=== PATIENT | male | born 1940 | race Caucasian/White ===

== ENCOUNTER 2018-06-13 15:11 | Emergency (ER) | payer MEDICARE ==
[2018-06-13 15:24] VITALS: TEMP 98.1
[2018-06-13] MEDS ORDERED: Aluminum Hydroxide/Magnesium Hydroxide Susp (30 mL) PO STA (16:06)
[2018-06-13] MEDS ORDERED: Sodium Chloride 0.9% 1,000 ML IV ONE (16:06)
[2018-06-13] MEDS ORDERED: Lidocaine 5% Patch TD STA (16:06)
[2018-06-13 16:22] LABS: BASO % 0.4 % (0.0-2.0); EOS # 0.2 K/uL (0.0-0.7); EOS % 2.6 % (0.0-4.0); HEMOGLOBIN 14.6 g/dL (12.0-18.0); LYMPH # 2.6 K/uL (1.0-4.3); LYMPH % 39.7 % (20.0-40.0); MEAN CELL VOLUME 91.8 fL (80.0-94.0); MEAN CORPUSCULAR HEMOGLOBIN 31.6 pg (27.0-31.0); MEAN CORPUSCULAR HGB CONC 34.4 g/dL (33.0-37.0); MEAN PLATELET VOLUME 9.9 fL (7.2-11.7); MONO # 0.7 K/uL (0.0-0.8); MONO % 10.5 % (0.0-10.0); NEUT # 3.1 K/uL (1.8-7.0); NEUT % 46.8 % (50.0-75.0); NRBC % 0.1 % (0.0-2.0); RBC 4.64 Mil/uL (4.40-5.90); RED CELL DISTRIBUTION WIDTH 14.2 % (11.5-14.5); WHITE BLOOD COUNT 6.6 K/uL (4.8-10.8)
--- NOTE | 2018-06-13 16:28 | C.PDOC ---
History Of Present Illness 77 year old male patient presents to the ER with c/o sharp intermittent right intercostal pain. Patient reports pain radiates to his epigastric. Patient denies dysuria, frequency, hematuria, fever and chills. Time Seen by Provider: 06/13/18 15:31 Chief Complaint (Nursing): Abdominal Pain History Per: Patient History/Exam Limitations: no limitations Onset/Duration Of Symptoms: Days Current Symptoms Are (Timing): Still Present Location Of Pain/Discomfort: RUQ, Epigastric Past Medical History Reviewed: Historical Data, Nursing Documentation, Vital Signs Vital Signs: Last Vital Signs Temp 98.1 F 06/13/18 15:21 Pulse 65 06/13/18 15:21 Resp 17 06/13/18 15:21 BP 117/70 06/13/18 15:21 Pulse Ox 96 06/13/18 17:38 Family History: States: Unknown Family Hx - Social History Hx Alcohol Use: No Hx Substance Use: No - Immunization History Hx Tetanus Toxoid Vaccination: No Hx Influenza Vaccination: No Hx Pneumococcal Vaccination: No Review Of Systems Except As Marked, All Systems Reviewed And Found Negative. Constitutional: Negative for: Fever, Chills Gastrointestinal: Positive for: Abdominal Pain (intermittent sharp intercostal pain; radiates to epigastric ) Genitourinary: Negative for: Dysuria, Frequency, Hematuria Physical Exam - Physical Exam Appears: Non-toxic, No Acute Distress Skin: Normal Color, Warm, Dry Chest: Symmetrical, No Deformity Cardiovascular: Rhythm Regular Respiratory: Normal Breath Sounds Gastrointestinal/Abdominal: Soft, Tenderness (bony point tenderness right intercostal mid axillary 12th rib ), No Distention, No Guarding, No Rebound Back: CVA Tenderness (right) Extremity: Normal ROM (x4) Neurological/Psych: Oriented x3, Normal Speech ED Course And Treatment - Laboratory Results Result Diagrams: 06/13/18 16:19 06/13/18 16:19 O2 Sat by Pulse Oximetry: 96 (RA) Pulse Ox Interpretation: Normal Medical Decision Making Medical Decision Making: Impression: sharp intermittent inertcostal mid axillary pain Plans: -- blood work -- lidoderm -- maalox -- motrin -- pepcid -- IV fluids -- Tyelnol -- UA Reassess: Patient is resting comfortably. Tolerating medication. Patient is given prescription for pain and is instructed to f/u with clinic in 1-2 days. Disposition Counseled Patient/Family Regarding: Studies Performed, Diagnosis, Need For Followup, Rx Given - Disposition Disposition Time: 17:36 Condition: STABLE Prescriptions: Ibuprofen [Motrin] 600 mg PO TID #15 tab Lidocaine 5% [Lidoderm] 1 ea TD DAILY #2 patch Instructions: Costochondritis Forms: [employer] (Vietnamese) - POA Present On Arrival: None - Clinical Impression Clinical Impression: Costochondritis - Scribe Statement The provider has reviewed the documentation as recorded by the Rebeca Dupont Do Provider Attestation: All medical record entries made by the Jhonibdon were at my direction and personally dictated by me. I have reviewed the chart and agree that the record accurately reflects my personal performance of the history, physical exam, medical decision making, and the department course for this patient. I have also personally directed, reviewed, and agree with the discharge instructions and disposition.
[2018-06-13] MEDS ORDERED: Sodium Chloride 0.9% 1,000 ML ONE (16:32)
[2018-06-13] MEDS ORDERED: Aluminum Hydroxide/Magnesium Hydroxide Susp (30 mL) ONE (16:33)
[2018-06-13 16:35] LABS: ALBUMIN 3.4 g/dL (3.5-5.0); ALT/SGPT 27 U/L (21-72); AST/SGOT 28 U/L (17-59); BLOOD UREA NITROGEN 15 mg/dL (9-20); CALCIUM 8.9 mg/dl (8.6-10.4); GFR NON-AFRICAN AMERICAN > 60
[2018-06-13] MEDS ORDERED: Lidocaine 5% Patch TD ONE (16:55)
[2018-06-13 17:56] VITALS: BP 121/68; PULSE 84; RESP 16; O2SAT 98
== END 2018-06-13 17:55 | disposition home or self-care (01) ==
LOC: C.ER 15:11
DX: M94.0 Chondrocostal junction syndrome [Tietze] (principal)
CPT/HCPCS: 80053; 85025; 96361; 96374; 99284; J7030

== ENCOUNTER 2018-08-12 10:13 | Inpatient (IN) | payer MEDICARE ==
[2018-08-12 10:31] VITALS: BMI 24.9
[2018-08-12] MEDS ORDERED: Sodium Chloride 0.9% 1,000 ML IV ONE ×4 (10:51→17:05)
--- NOTE | 2018-08-12 11:11 | C.PDOC ---
History Of Present Illness 77 y/o male presents to the ED complaining of upper abdominal pain, mostly RUQ, that began yesterday. Associated with fever. No associated nausea, vomiting, or diarrhea. PMHx is significant for gastritis. Patient also reports having some dysuria. Denies any hematuria, incontinence, back pain, urinary frequency/urgency, or testicular/penile pain. Time Seen by Provider: 08/12/18 10:34 Chief Complaint (Nursing): Abdominal Pain History Per: Patient History/Exam Limitations: no limitations Onset/Duration Of Symptoms: Days (x2) Current Symptoms Are (Timing): Still Present Location Of Pain/Discomfort: RUQ Past Medical History Reviewed: Historical Data, Nursing Documentation, Vital Signs Vital Signs: Last Vital Signs Temp 102.3 F H 08/12/18 10:31 Pulse 113 H 08/12/18 10:31 Resp 20 08/12/18 10:31 BP 107/67 08/12/18 10:31 Pulse Ox 99 08/12/18 10:31 - Medical History PMH: Gastritis Family History: States: Unknown Family Hx - Social History Hx Alcohol Use: No Hx Substance Use: No - Immunization History Hx Tetanus Toxoid Vaccination: No Hx Influenza Vaccination: No Hx Pneumococcal Vaccination: No Review Of Systems Except As Marked, All Systems Reviewed And Found Negative. Constitutional: Positive for: Fever Gastrointestinal: Positive for: Abdominal Pain (RUQ). Negative for: Nausea, Vomiting, Diarrhea Genitourinary: Positive for: Dysuria. Negative for: Frequency, Incontinence, Hematuria, Scrotal Pain, Penile Pain Physical Exam - Physical Exam Appears: Non-toxic, No Acute Distress Skin: Normal Color, Warm, Dry Head: Atraumatic, Normacephalic Eye(s): bilateral: Normal Inspection, PERRL, EOMI Oral Mucosa: Moist Neck: Normal ROM Cardiovascular: Rhythm Regular, No Murmur Respiratory: Normal Breath Sounds, No Accessory Muscle Use Gastrointestinal/Abdominal: Soft, Tenderness (to the right upper quadrant), No Distention, No Guarding, No Rebound Back: No CVA Tenderness Extremity: Bilateral: Atraumatic, Normal Color And Temperature Neurological/Psych: Oriented x3, Normal Speech ED Course And Treatment - Laboratory Results Result Diagrams: 08/12/18 11:05 08/12/18 11:05 Lab Interpretation: Abnormal O2 Sat by Pulse Oximetry: 99 (RA) Pulse Ox Interpretation: Normal - Radiology CXR: Interpreted by Me, Viewed By Me CXR Interpretation: Yes: No Acute Disease - CT Scan/US Abdominal US Other Rad Studies (CT/US): Read By Radiologist, Radiology Report Reviewed CT/US Interpretation: Accession No. : [id number]. Patient Name / ID : ORION HUDDLESTON / [id number]. Exam Date : 08/12/2018 11:09:24 ( Approved ). Study Comment : Sex / Age : M / 77Y. Creator : Jayesh Platt MD. Dictator : Jayesh Platt MD. Staff Psychiatrist : Break Up Worker : Jayesh Platt MD. Approver2 : Report Date : 08/12/2018 11:55:29. My Comment : . Date of service: 08/12/2018. HISTORY: Pain. COMPARISON: None. TECHNIQUE: Sonographic evaluation of the abdomen. FINDINGS: LIVER: Measures 16.7 cm. Normal echogenicity of the liver parenchyma. Right hepatic lobe cyst measuring 5.2 x 3. 1 x 5.0 cm. 5 mm parenchymal calcification is seen. No intrahepatic bile duct dilatation. GALLBLADDER: Unremarkable. No gallstones. COMMON BILE DUCT: Measures 3 mm. No stones. No dilatation. PANCREAS: Unremarkable as visualized. No mass. No ductal dilatation. RIGHT KIDNEY: Measures 10.7 x 4.4 x 4.0cm. Exophytic mid/upper pole cyst measuring 5.7 x 5.5 x 6.3 cm. Cortical midpole cyst measuring 1.5 x 1.0 x 0.7 cm. Normal echogenicity. No calculus, mass, or hydronephrosis. LEFT KIDNEY: Measures 11.0 x 5.2 x 5.1cm. Upper pole cyst measuring 2.9 x 2.2 x 2.6 cm. Normal echogenicity. No calculus, mass, or hydronephrosis. SPLEEN: Normal in size and contour. No mass. AORTA: No ane urysmal dilatation. IVC: Unremarkable. OTHER FINDINGS: None. IMPRESSION: Right hepatic and bilateral renal cysts. Otherwise, unremarkable abdominal ultrasound. CT ABD/PELVIS Other Rad Studies (CT/US): Read By Radiologist, Radiology Report Reviewed CT/US Interpretation: Accession No. : [id number]. Patient Name / ID : ORION HUDDLESTON / [id number]. Exam Date : 08/12/2018 11:52:57 ( Approved ). Study Comment : Sex / Age : M / 77Y. Creator : María Bethea. Dictator : Jayesh Platt MD. Staff Psychiatrist : Break Up Worker : Jayesh Platt MD. Approver2 : Report Date : 08/12/2018 12:02:44. My Comment : . Date of service: 08/12/2018. PROCEDURE: CT Abdomen and Pelvis without intravenous contrast. HISTORY: Pain. COMPARISON: None. TECHNIQUE: Contiguous images were obtained from the domes of the diaphragms to the upper thighs without the administration of intravenous contrast. Oral contrast was not administered. Radiation dose: Total exam DLP = 689.16 mGy-cm. This CT exam was performed using one or more of the following dose reduction techniques: Automated exposure control, adjustment of the mA and/or kV according to patient size, and/or use of iterative reconstruction technique. FINDINGS: LOWER THORAX: Heart size normal. Small to moderate pericardial effusion with maximal depth measuring 1.8 cm posteriorly. Chronic interstitial changes. No focal consolidation or pleural effusion. LIVER: Coarse right hepatic calcification. Inferior right hepatic lobe cyst measuring 4.3 x 3.6 cm no gross lesion or ductal dilatation. GALLBLADDER AND BILE DUCTS: Unremarkable. PANCREAS: Unremarkable. No gross lesion or ductal dilatation. SPLEEN: Unremarkable. ADRENALS: Unremarkable. No mass. KIDNEYS AND URETERS: Large exophytic right mid/upper pole cyst measuring 5.6 x 5.8 cm. Exophytic left upper pole cyst measuring 2.7 x 2.8 cm. No hydronephrosis. No solid mass. VASCULATURE: Unremarkable. No aortic aneurysm. Aortic atherosclerotic calcification and mural plaque present. BOWEL: Small hiatal hernia. Scattered colonic diverticula. No obstruction. No gross mural thickening. APPENDIX: Unremarkable. Normal appendix. PERITONEUM: Tiny fat containing umbilical hernia. Small bilateral fat containing inguinal hernias. No free fluid. No free air. LYMPH NODES: Unremarkable. No enlarged lymph nodes. BLADDER: Underdistended bladder with bladder wall thickening. REPRODUCTIVE: Prostatomegaly. BONES: No acute fracture. Spinal degenerative changes, worst at L4-5. OTHER FINDINGS: None. IMPRESSION: Small pericardial effusion that is focally moderate in size posterior laterally to the left with a maximum depth of 1.8 cm. No urolithiasis or evidence of recently passed genitou rinary calculus. Bladder wall thickening may be related to underdistention versus infection. Correlate with urinalysis/culture. Additional findings as above. Progress Note: Treated with tylenol PO, IVF NSS and rocephin. On re-evaluation abdomen soft Reassessment Condition: Improved - Physician Consult Information Physician Contacted: Lorna Mcnamara Outcome Of Conversation: admit Medical Decision Making Medical Decision Making: Plan: Labs, CXR, EKG ordered. Pending abdominal US. Administered IV fluids and PO Tylenol. UA shows +leuks, WBC, and bacteria. Patient given IM rocephin. US shows no gall stones. Ordered CT scan. Blood work reviewed, WBC elevated at 16K with [address] findings reviewed. 12:38 Case discussed with medicine on-call, Dr. Mcnamara, who accepts patient for admission for pyelonephritis. Disposition Discussed With : Lorna Mcnamara Doctor Will See Patient In The: Hospital Counseled Patient/Family Regarding: Studies Performed, Diagnosis - Disposition Disposition: HOSPITALIZED Disposition Time: 12:40 Condition: IMPROVED - POA Present On Arrival: None - Clinical Impression Clinical Impression: Abdominal pain, Pyelonephritis - PA / BODY FORMER / Resident Statement MD/DO has reviewed & agrees with the documentation as recorded. - Scribe Statement The provider has reviewed the documentation as recorded by the Scribe (Rachel Mckeon) All medical record entries made by the Scribe were at my direction and personally dictated by me. I have reviewed the chart and agree that the record accurately reflects my personal performance of the history, physical exam, medical decision making, and the department course for this patient. I have also personally directed, reviewed, and agree with the discharge instructions and disposition. Decision To Admit - Pt Status Changed To: Hospital Disposition Of: Inpatient - Admit Certification Admit to Inpatient:: After my assessment, the patient will require hospitalization for at least two midnights. This is because of the severity of symptoms shown, intensity of services needed, and/or the medical risk in this patient being treated as an outpatient. - InPatient: Physician Admission Certification:: Pyleonephritis - . Bed Request Type: Regular Admitting Physician: Lorna Mcnamara Patient Diagnosis: Abdominal pain, Pyelonephritis
[2018-08-12 11:14] LABS: BASO % 0.2 % (0.0-2.0); HEMOGLOBIN 14.2 g/dL (12.0-18.0); LYMPH # 0.7 K/uL (1.0-4.3); LYMPH % 4.5 % (20.0-40.0); MEAN CELL VOLUME 91.6 fL (80.0-94.0); MEAN CORPUSCULAR HEMOGLOBIN 31.8 pg (27.0-31.0); MEAN CORPUSCULAR HGB CONC 34.7 g/dL (33.0-37.0); MEAN PLATELET VOLUME 10.1 fL (7.2-11.7); MONO # 0.9 K/uL (0.0-0.8); MONO % 5.5 % (0.0-10.0); NEUT % 89.8 % (50.0-75.0); NRBC % 0.1 % (0.0-2.0); PLATELET COUNT 136 K/uL (130-400); RBC 4.48 Mil/uL (4.40-5.90); RED CELL DISTRIBUTION WIDTH 13.8 % (11.5-14.5)
--- NOTE | 2018-08-12 11:14 | RAD ---
Date of service: 08/12/2018 HISTORY: SOB COMPARISON: Chest radiograph dated 08/16/2017. TECHNIQUE: Chest PA and lateral FINDINGS: LUNGS: No active pulmonary disease. PLEURA: No significant pleural effusion identified. No pneumothorax apparent. CARDIOVASCULAR: Aortic atherosclerotic calcifications. Cardiomediastinal silhouette stably enlarged. OSSEOUS STRUCTURES: Unchanged. VISUALIZED UPPER ABDOMEN: Normal. OTHER FINDINGS: None. IMPRESSION: No active disease.
[2018-08-12 11:15] LABS: SQUAMOUS EPITHIAL 2 /hpf (0-5); URINE BACTERIA OCC (<OCC); URINE BILIRUBIN NEGATIVE (NEGATIVE); URINE BLOOD 3+ (NEGATIVE); URINE CLARITY Hazy (Clear); URINE COLOR Amber (YELLOW); URINE GLUCOSE (UA) NORMAL (Normal); URINE LEUKOCYTE ESTERASE 3+ Leu/uL (Negative); URINE PROTEIN 1+ mg/dL (NEGATIVE); URINE UROBILINOGEN NORMAL mg/dL (0.2-1.0); WBC CLUMPS MOD /hpf; WHITE BLOOD COUNT 16.6 K/uL (4.8-10.8)
[2018-08-12 11:17] LABS: VENOUS BLOOD GAS BASE EXCESS -1.6 mmol/L (0.0-2.0); VENOUS BLOOD GAS PCO2 31 mmHg (40-60); VENOUS BLOOD GAS PO2 49 mm/Hg (30-55); VENOUS BLOOD PH 7.45 (7.32-7.43)
[2018-08-12 11:24] LABS: ALB/GLOB RATIO 1.1 (1.0-2.1); ALBUMIN 3.4 g/dL (3.5-5.0); ALT/SGPT 21 U/L (21-72); AST/SGOT 24 U/L (17-59); BLOOD UREA NITROGEN 17 mg/dL (9-20); CALCIUM 8.7 mg/dl (8.6-10.4); GFR NON-AFRICAN AMERICAN 54; LIPASE 17 U/L (23-300)
[2018-08-12] MEDS ORDERED: cefTRIAXone IV 1 gm in Dextros 50 ML IV ONE (11:27)
[2018-08-12] MEDS ORDERED: cefTRIAXone 1 gm 1 GM/100 ML BAG IVPB ONE (11:38)
--- NOTE | 2018-08-12 11:59 | US ---
Date of service: 08/12/2018 HISTORY: Pain COMPARISON: None. TECHNIQUE: Sonographic evaluation of the abdomen. FINDINGS: LIVER: Measures 16.7 cm. Normal echogenicity of the liver parenchyma. Right hepatic lobe cyst measuring 5.2 x 3.1 x 5.0 cm. 5 mm parenchymal calcification is seen. No intrahepatic bile duct dilatation. GALLBLADDER: Unremarkable. No gallstones. COMMON BILE DUCT: Measures 3 mm. No stones. No dilatation. PANCREAS: Unremarkable as visualized. No mass. No ductal dilatation. RIGHT KIDNEY: Measures 10.7 x 4.4 x 4.0cm. Exophytic mid/upper pole cyst measuring 5.7 x 5.5 x 6.3 cm. Cortical midpole cyst measuring 1.5 x 1.0 x 0.7 cm. Normal echogenicity. No calculus, mass, or hydronephrosis. LEFT KIDNEY: Measures 11.0 x 5.2 x 5.1cm. Upper pole cyst measuring 2.9 x 2.2 x 2.6 cm. Normal echogenicity. No calculus, mass, or hydronephrosis. SPLEEN: Normal in size and contour. No mass. AORTA: No aneurysmal dilatation. IVC: Unremarkable. OTHER FINDINGS: None. IMPRESSION: Right hepatic and bilateral renal cysts. Otherwise, unremarkable abdominal ultrasound.
--- NOTE | 2018-08-12 12:14 | CT ---
Date of service: 08/12/2018 PROCEDURE: CT Abdomen and Pelvis without intravenous contrast HISTORY: Pain COMPARISON: None. TECHNIQUE: Contiguous images were obtained from the domes of the diaphragms to the upper thighs without the administration of intravenous contrast. Oral contrast was not administered. Radiation dose: Total exam DLP = 689.16 mGy-cm. This CT exam was performed using one or more of the following dose reduction techniques: Automated exposure control, adjustment of the mA and/or kV according to patient size, and/or use of iterative reconstruction technique. FINDINGS: LOWER THORAX: Heart size normal. Small to moderate pericardial effusion with maximal depth measuring 1.8 cm posteriorly. Chronic interstitial changes. No focal consolidation or pleural effusion. LIVER: Coarse right hepatic calcification. Inferior right hepatic lobe cyst measuring 4.3 x 3.6 cm no gross lesion or ductal dilatation. GALLBLADDER AND BILE DUCTS: Unremarkable. PANCREAS: Unremarkable. No gross lesion or ductal dilatation. SPLEEN: Unremarkable. ADRENALS: Unremarkable. No mass. KIDNEYS AND URETERS: Large exophytic right mid/upper pole cyst measuring 5.6 x 5.8 cm. Exophytic left upper pole cyst measuring 2.7 x 2.8 cm. No hydronephrosis. No solid mass. VASCULATURE: Unremarkable. No aortic aneurysm. Aortic atherosclerotic calcification and mural plaque present. BOWEL: Small hiatal hernia. Scattered colonic diverticula. No obstruction. No gross mural thickening. APPENDIX: Unremarkable. Normal appendix. PERITONEUM: Tiny fat containing umbilical hernia. Small bilateral fat containing inguinal hernias. No free fluid. No free air. LYMPH NODES: Unremarkable. No enlarged lymph nodes. BLADDER: Underdistended bladder with bladder wall thickening. REPRODUCTIVE: Prostatomegaly. BONES: No acute fracture. Spinal degenerative changes, worst at L4-5. OTHER FINDINGS: None. IMPRESSION: Small pericardial effusion that is focally moderate in size posterior laterally to the left with a maximum depth of 1.8 cm. No urolithiasis or evidence of recently passed genitourinary calculus. Bladder wall thickening may be related to underdistention versus infection. Correlate with urinalysis/culture. Additional findings as above.
[2018-08-12 12:15] LABS: BANDS 12 % (0-2); LYMPHOCYTE 4 % (20-40); MONOCYTE 3 % (0-10); NEUTROPHIL 79 % (50-75); PLATELET ESTIMATE NORMAL (NORMAL); REACTIVE LYMPHOCYTES 2 % (0-0); TOTAL CELLS COUNTED 100
--- NOTE | 2018-08-12 13:12 | CP.PCM.HP ---
History of Present Illness - History of Present Illness History of Present Illness: fever chils and flank pain sinsce last night Present on Admission - Present on Admission Any Indicators Present on Admission: No Review of Systems - Review of Systems Systems not reviewed;Unavailable: Acuity of Condition - Constitutional Constitutional: Chills, Fatigue, Fever, Malaise - EENT Eyes: As Per HPI Ears: As Per HPI Nose/Mouth/Throat: As Per HPI - Cardiovascular Cardiovascular: As Per HPI - Respiratory Respiratory: As Per HPI - Gastrointestinal Gastrointestinal: As Per HPI - Genitourinary Genitourinary: Dysuria, Flank Pain, Pyuria - Reproductive: Male Reproductive:Male: As Per HPI - Musculoskeletal Musculoskeletal: As Per HPI - Integumentary Integumentary: As Per HPI - Neurological Neurological: As Per HPI - Psychiatric Psychiatric: As Per HPI - Endocrine Endocrine: As Per HPI - Hematologic/Lymphatic Hematologic: As Per HPI Past Patient History - Past Social History Smoking Status: Former Smoker - GASTROINTESTINAL Hx Gastritis: Yes - PSYCHIATRIC Hx Substance Use: No - SURGICAL HISTORY Hx Surgeries: No - ANESTHESIA Hx Anesthesia: No Meds Allergies/Adverse Reactions: Allergies Allergy/AdvReac Type Severity Reaction Status Date / Time No Known Allergies Allergy Verified 08/12/18 10:30 Physical Exam - Constitutional Appears: In Acute Distress - Head Exam Head Exam: ATRAUMATIC - Eye Exam Eye Exam: Normal appearance Pupil Exam: NORMAL ACCOMODATION - ENT Exam ENT Exam: Mucous Membranes Moist - Neck Exam Neck exam: Positive for: Full Rom - Respiratory Exam Respiratory Exam: NORMAL BREATHING PATTERN - Cardiovascular Exam Cardiovascular Exam: REGULAR RHYTHM - GI/Abdominal Exam GI & Abdominal Exam: Distended, Tenderness - Rectal Exam Rectal Exam: Deferred - Exam External exam: NORMAL EXTERNAL EXAM - Extremities Exam Extremities exam: Positive for: normal inspection - Back Exam Back exam: CVA tenderness (L) - Neurological Exam Neurological exam: Normal Gait, Oriented x3 - Psychiatric Exam Psychiatric exam: Normal Affect - Skin Skin Exam: Normal Color Results - Vital Signs Recent Vital Signs: Last Vital Signs Temp 99.4 F 08/12/18 12:19 Pulse 89 08/12/18 12:19 Resp 16 08/12/18 12:19 BP 90/49 L 08/12/18 12:19 Pulse Ox 99 08/12/18 13:02 - Labs Result Diagrams: 08/12/18 11:05 08/12/18 11:05 Labs: Laboratory Results - last 24 hr 08/12/18 08/12/18 08/12/18 11:05 11:05 11:05 WBC 16.6 H D RBC 4.48 Hgb 14.2 Hct 41.1 MCV 91.6 MCH 31.8 H MCHC 34.7 RDW 13.8 Plt Count 136 MPV 10.1 Neut % (Auto) 89.8 H Lymph % (Auto) 4.5 L [place] % (Auto) 5.5 Eos % (Auto) 0.0 Baso % (Auto) 0.2 Neut # (Auto) 15.0 H Lymph # (Auto) 0.7 L [place] # (Auto) 0.9 H Eos # (Auto) 0.0 Baso # (Auto) 0.0 Neutrophils % (Manual) 79 H Band Neutrophils % 12 H* Lymphocytes % (Manual) 4 L Reactive Lymphs % 2 H Monocytes % (Manual) 3 Platelet Estimate Normal RBC Morphology Normal pO2 VBG pH VBG pCO2 VBG HCO3 VBG Total CO2 VBG O2 Sat (Calc) VBG Base Excess VBG Potassium Glucose Lactate Sodium 133 Potassium 3.9 Chloride 103 Carbon Dioxide 21 L Anion Gap 13 BUN 17 Creatinine 1.3 Est GFR ( Amer) > 60 Est GFR (Non-Af Amer) 54 Random Glucose 121 H Calcium 8.7 Total Bilirubin 0.9 AST 24 ALT 21 D Alkaline Phosphatase 102 Total Protein 6.6 Albumin 3.4 L Globulin 3.2 Albumin/Globulin Ratio 1.1 Lipase 17 L Venous Blood Potassium Urine Color La Urine Clarity Hazy Urine pH 5.0 Ur Specific [place] 1.018 Urine Protein 1+ H Urine Glucose (UA) Normal Urine Ketones Negative Urine Blood 3+ H Urine Nitrate Negative Urine Bilirubin Negative Urine Urobilinogen Normal Ur Leukocyte Esterase 3+ H Urine WBC (Auto) 609 H Urine RBC (Auto) 193 H Urine WBC Clumps (Auto) Mod H Ur Squamous Epith Cells 2 Urine Bacteria Occ H 08/12/18 11:14 WBC RBC Hgb Hct MCV MCH MCHC RDW Plt Count MPV Neut % (Auto) Lymph % (Auto) [place] % (Auto) Eos % (Auto) Baso % (Auto) Neut # (Auto) Lymph # (Auto) [place] # (Auto) Eos # (Auto) Baso # (Auto) Neutrophils % (Manual) Band Neutrophils % Lymphocytes % (Manual) Reactive Lymphs % Monocytes % (Manual) Platelet Estimate RBC Morphology pO2 49 VBG pH 7.45 H VBG pCO2 31 L VBG HCO3 23.4 VBG Total CO2 22.5 VBG O2 Sat (Calc) 89.8 H VBG Base Excess -1.6 L VBG Potassium 3.7 Glucose 116 H Lactate 1.5 Sodium 133.0 Potassium Chloride 101.0 Carbon Dioxide Anion Gap BUN Creatinine Est GFR ( Amer) Est GFR (Non-Af Amer) Random Glucose Calcium Total Bilirubin AST ALT Alkaline Phosphatase Total Protein Albumin Globulin Albumin/Globulin Ratio Lipase Venous Blood Potassium 3.7 Urine Color Urine Clarity Urine pH Ur Specific [place] Urine Protein Urine Glucose (UA) Urine Ketones Urine Blood Urine Nitrate Urine Bilirubin Urine Urobilinogen Ur Leukocyte Esterase Urine WBC (Auto) Urine RBC (Auto) Urine WBC Clumps (Auto) Ur Squamous Epith Cells Urine Bacteria Assessment & Plan - Assessment and Plan (Free Text) Assessment: ac abd pain acute pyelo nephritis Plan: as per orders - Date & Time Date: 08/12/18 Time: 13:15
[2018-08-12] MEDS ORDERED: Meropenem 500 MG in Sodium Chloride 0.9% 100 ML IVPB SCH (15:00)
--- NOTE | 2018-08-12 15:28 | PCM.RRT ---
<Zohaib Cortez - Last Filed: 08/12/18 20:03> [employer]ED[employer] DUMPING SUPERVISOR Nurses Assessment - Situation Date: 08/12/18 Time SUCTION [employer]EDGE DUMPING SUPERVISOR was called: 14:53 - Constitutional Appears: No Acute Distress. absent: Well - Head Head Exam: ATRAUMATIC, NORMOCEPHALIC - Eyes Eye Exam: Normal appearance - Respiratory Exam Respiratory Exam: Clear to Ausculation Bilateral. absent: Accessory Muscle Use, Rales, Rhonchi, Wheezes, Respiratory Distress - Cardiovascular Exam Cardiovascular Exam: Tachycardia, +S1, +S2. absent: Gallop, Rubs, Murmur - GI/Abdominal Exam GI & Abdominal Exam: Soft. absent: Distended, Firm, Tenderness - Neurological Exam Neurological Exam: Alert, Awake - Extremities Exam Extremities Exam: Normal Inspection. absent: Calf Tenderness, Pedal Edema Plan - Assessment of Findings&Treatment Plan SUCTION DREDGE DUMPING SUPERVISOR was called at 14:53 for hypotension. Patient was just admitted with possible diagnosis of pyelonephritis. Patient chart reviewed, CT showed no evidence of pyelonephritis but showed possible pericardial effusion. On UA it was noted that patient has a UTI. Vitals upon arrival was: BP: 78/41 L, 84/44 R, T: 103, HR: 100, RR: 20, O2: 94% We started patient on Meropenem 500mg Q8, Tylenol 650mg Q6 for 24 hours, and lactobacillus. 1 L NS bolus x 2 started. Additional 1L NS ordered. Blood and urine cultures ordered in the ED. Repeat lactate levels for 18:00 and procalcitonin levels ordered. Stat ID and cardiology consulted. Stat EKG and echo ordered. Repeat vitals: BP: 111/58, HR: 100, RR:20, O2: [address] Mcnamara contacted and updated on the condition of the patient. She requested patient to be transferred to the ICU. <Salvador Vieira - Last Filed: 08/14/18 20:32> [employer]ING SUPERVISOR Nurses Assessment - Vital Signs Vital Signs: Rapid Response Vital Sign Blood Pressure 79/41 Pulse Rate 100 Respiratory Rate 21 Temperature 103.0 F Oxygen Saturation 93 - Vital Signs at end of SUCTION [employer]EDGE DUMPING SUPERVISOR Vital Signs at end of SUCTION [employer]EDGE DUMPING SUPERVISOR: Rapid Response End Vital Sign Blood Pressure 95/51 Pulse Rate 101 Respiratory Rate 21 Temperature 102.9 F O2 Sat by Pulse Oximetry 96 Attending/Attestation - Attestation I have personally seen and examined this patient.: Yes I have fully participated in the care of the patient.: Yes I have reviewed all pertinent clinical information, including history, physical exam and plan: Yes
--- NOTE | 2018-08-12 15:31 | PCM.SEPTIC ---
Sepsis Progress Note - Reassessment Type Date of Evaluation: 08/12/18 Time of Evaluation: 14:56 Reassessment Type: Non-invasive reassessment - Non Invasive Reassessment Were the most recent vital sign reviewed: Yes Vital Sign (Latest): Temp Pulse Resp BP Pulse Ox 99.4 F 105 H 18 95/59 L 97 08/12/18 12:19 08/12/18 14:05 08/12/18 14:05 08/12/18 14:05 08/12/18 14:05 Cardiovascular: Yes: Tachycardia. No: Regular Rate, Rhythm, Gallop, Murmur Respiratory: Yes: Normal Breath Sounds. No: Accessory Muscle Use, Rales, Rhonchi, Wheezing, Respiratory Distress Capillary Refill: Delayed Pulses: Normal Radial, Normal Dorsalis Pedis, Normal Posterior Tibialis Skin: Normal Color, Warm, Dry
[2018-08-12] MEDS ORDERED: Vancomycin 1 gm/NS 200 ml 1 GM/200 ML BAG IVPB SCH (16:00)
--- NOTE | 2018-08-12 16:14 | CP.PCM.CON ---
History of Present Illness - History of Present Illness History of Present Illness: dictated Past Patient History - Past Social History Smoking Status: Former Smoker - GASTROINTESTINAL Hx Gastritis: Yes - PSYCHIATRIC Hx Substance Use: No - SURGICAL HISTORY Hx Surgeries: No - ANESTHESIA Hx Anesthesia: No Meds Allergies/Adverse Reactions: Allergies Allergy/AdvReac Type Severity Reaction Status Date / Time No Known Allergies Allergy Verified 08/12/18 10:30 - Medications Medications: Current Medications Acetaminophen (Tylenol 325mg Tab) 650 mg PO Q6 RIRI Stop: 08/13/18 15:00 Meropenem 500 mg/ Sodium (Chloride) 100 mls @ 100 mls/hr IVPB Q8H RIRI; Protocol Sodium Chloride (Sodium Chloride 0.9%) 1,000 mls @ 1,000 mls/hr IV .Q1H ONE Stop: 08/12/18 16:44 Sodium Chloride (Sodium Chloride 0.9%) 1,000 mls @ 1,000 mls/hr IV .Q1H ONE Stop: 08/12/18 17:04 Vancomycin/Sodium Chloride (Vancomycin 1 Gm/Ns 200 Ml) 1 gm in 200 mls @ 133 mls/hr IVPB Q24H RIRI; Protocol Stop: 08/17/18 16:01 Lactobacillus Acidophilus (Bacid Acidophilus) 1 cap PO BID RIRI Pantoprazole Sodium (Protonix Ec Tab) 20 mg PO DAILY RIRI Results - Vital Signs Recent Vital Signs: Last Vital Signs Temp 99.4 F 08/12/18 12:19 Pulse 105 H 08/12/18 14:05 Resp 18 08/12/18 14:05 BP 95/59 L 08/12/18 14:05 Pulse Ox 97 08/12/18 14:05 - Labs Result Diagrams: 08/12/18 11:05 08/12/18 11:05 Labs: Laboratory Results - last 24 hr 08/12/18 08/12/18 08/12/18 11:05 11:05 11:05 WBC 16.6 H D RBC 4.48 Hgb 14.2 Hct 41.1 MCV 91.6 MCH 31.8 H MCHC 34.7 RDW 13.8 Plt Count 136 MPV 10.1 Neut % (Auto) 89.8 H Lymph % (Auto) 4.5 L [place] % (Auto) 5.5 Eos % (Auto) 0.0 Baso % (Auto) 0.2 Neut # (Auto) 15.0 H Lymph # (Auto) 0.7 L [place] # (Auto) 0.9 H Eos # (Auto) 0.0 Baso # (Auto) 0.0 Neutrophils % (Manual) 79 H Band Neutrophils % 12 H* Lymphocytes % (Manual) 4 L Reactive Lymphs % 2 H Monocytes % (Manual) 3 Platelet Estimate Normal RBC Morphology Normal pO2 VBG pH VBG pCO2 VBG HCO3 VBG Total CO2 VBG O2 Sat (Calc) VBG Base Excess VBG Potassium Glucose Lactate Sodium 133 Potassium 3.9 Chloride 103 Carbon Dioxide 21 L Anion Gap 13 BUN 17 Creatinine 1.3 Est GFR ( Amer) > 60 Est GFR (Non-Af Amer) 54 Random Glucose 121 H Lactic Acid Calcium 8.7 Total Bilirubin 0.9 AST 24 ALT 21 D Alkaline Phosphatase 102 Total Protein 6.6 Albumin 3.4 L Globulin 3.2 Albumin/Globulin Ratio 1.1 Lipase 17 L Venous Blood Potassium Urine Color La Urine Clarity Hazy Urine pH 5.0 Ur Specific [place] 1.018 Urine Protein 1+ H Urine Glucose (UA) Normal Urine Ketones Negative Urine Blood 3+ H Urine Nitrate Negative Urine Bilirubin Negative Urine Urobilinogen Normal Ur Leukocyte Esterase 3+ H Urine WBC (Auto) 609 H Urine RBC (Auto) 193 H Urine WBC Clumps (Auto) Mod H Ur Squamous Epith Cells 2 Urine Bacteria Occ H 08/12/18 08/12/18 11:14 15:15 WBC RBC Hgb Hct MCV MCH MCHC RDW Plt Count MPV Neut % (Auto) Lymph % (Auto) [place] % (Auto) Eos % (Auto) Baso % (Auto) Neut # (Auto) Lymph # (Auto) [place] # (Auto) Eos # (Auto) Baso # (Auto) Neutrophils % (Manual) Band Neutrophils % Lymphocytes % (Manual) Reactive Lymphs % Monocytes % (Manual) Platelet Estimate RBC Morphology pO2 49 VBG pH 7.45 H VBG pCO2 31 L VBG HCO3 23.4 VBG Total CO2 22.5 VBG O2 Sat (Calc) 89.8 H VBG Base Excess -1.6 L VBG Potassium 3.7 Glucose 116 H Lactate 1.5 Sodium 133.0 Potassium Chloride 101.0 Carbon Dioxide Anion Gap BUN Creatinine Est GFR ( Amer) Est GFR (Non-Af Amer) Random Glucose Lactic Acid 1.8 Calcium Total Bilirubin AST ALT Alkaline Phosphatase Total Protein Albumin Globulin Albumin/Globulin Ratio Lipase Venous Blood Potassium 3.7 Urine Color Urine Clarity Urine pH Ur Specific [place] Urine Protein Urine Glucose (UA) Urine Ketones Urine Blood Urine Nitrate Urine Bilirubin Urine Urobilinogen Ur Leukocyte Esterase Urine WBC (Auto) Urine RBC (Auto) Urine WBC Clumps (Auto) Ur Squamous Epith Cells Urine Bacteria
--- NOTE | 2018-08-12 16:51 | CP.PCM.CON ---
<Anh Quinteros - Last Filed: 08/12/18 18:10> History of Present Illness - History of Present Illness History of Present Illness: Patient is a 77 yo male who presented to the ED for RUQ, dysuria, and fever. 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 Patient was starte don broad spectrum abx, IV F, and Tylenol. PMH: gastritis, bronchitis PSH: none Meds: none All: none FH: unknown SH: former smoker x30 yrs- quit in 2017 Review of Systems - Review of Systems All systems: reviewed and no additional remarkable complaints except - Constitutional Constitutional: As Per HPI, Fever - Cardiovascular Cardiovascular: absent: Chest Pain - Respiratory Respiratory: absent: Dyspnea - Gastrointestinal Gastrointestinal: Abdominal Pain (mild). absent: Constipation, Diarrhea, Nausea, Vomiting - Genitourinary Genitourinary: As Per HPI, Dysuria. absent: Hematuria - Integumentary Integumentary: absent: Lesions Past Patient History - Infectious Disease Hx of Infectious Diseases: None - Tetanus Immunizations Tetanus Immunization: Unknown - Past Medical History & Family History Past Medical History?: Yes Past Family History: Reviewed and not pertinent - Past Social History Smoking Status: Former Smoker Chewing Tobacco Use: No Cigar Use: No Alcohol: None Drugs: Denies - CARDIAC Hx Cardiac Disorders: Yes Other/Comment: CT shows pericardial effusion - PULMONARY Hx Respiratory Disorders: Yes Hx Bronchitis: Yes - NEUROLOGICAL Hx Neurological Disorder: No - HEENT Hx HEENT Problems: No - RENAL Hx Chronic Kidney Disease: No - ENDOCRINE/METABOLIC Hx Endocrine Disorders: No - HEMATOLOGICAL/ONCOLOGICAL Hx Blood Disorders: No - INTEGUMENTARY Hx Dermatological Problems: No - MUSCULOSKELETAL/RHEUMATOLOGICAL Hx Musculoskeletal Disorders: No Hx Falls: No - GASTROINTESTINAL Hx Gastrointestinal Disorders: Yes Hx Gastritis: Yes - GENITOURINARY/GYNECOLOGICAL Hx Genitourinary Disorders: No - PSYCHIATRIC Hx Psychophysiologic Disorder: No Hx Substance Use: No - SURGICAL HISTORY Hx Surgeries: No - ANESTHESIA Hx Anesthesia: No Hx Anesthesia Reactions: No Hx Malignant Hyperthermia: No Has any member of the family had a problem w/ anesthesia?: No Meds Allergies/Adverse Reactions: Allergies Allergy/AdvReac Type Severity Reaction Status Date / Time No Known Allergies Allergy Verified 08/12/18 10:30 - Medications Medications: Current Medications Acetaminophen (Tylenol 325mg Tab) 650 mg PO Q6 PRN PRN Reason: Fever >100.4 F or Pain Sodium Chloride (Sodium Chloride 0.9%) 1,000 mls @ 1,000 mls/hr IV .Q1H ONE Stop: 08/12/18 17:04 Vancomycin/Sodium Chloride (Vancomycin 1 Gm/Ns 200 Ml) 1 gm in 200 mls @ 133 mls/hr IVPB Q24H RIRI; Protocol Stop: 08/17/18 16:01 Meropenem 1,000 mg/ Sodium (Chloride) 100 mls @ 100 mls/hr IVPB Q8H RIRI; Protocol Lactobacillus Acidophilus (Bacid Acidophilus) 1 cap PO BID RIRI Pantoprazole Sodium (Protonix Ec Tab) 20 mg PO DAILY RIRI Tamsulosin HCl (Flomax) 0.4 mg PO DAILY RIRI Stop: 08/16/18 10:01 Physical Exam - Constitutional Appears: Non-toxic, No Acute Distress - Head Exam Head Exam: ATRAUMATIC, NORMAL INSPECTION, NORMOCEPHALIC - Eye Exam Eye Exam: EOMI, Normal appearance, PERRL - ENT Exam ENT Exam: Mucous Membranes Moist - Neck Exam Neck exam: Positive for: Normal Inspection - Respiratory Exam Respiratory Exam: Clear to Auscultation Bilateral, NORMAL BREATHING PATTERN. absent: Respiratory Distress - Cardiovascular Exam Cardiovascular Exam: Tachycardia, REGULAR RHYTHM, +S1, +S2 - GI/Abdominal Exam GI & Abdominal Exam: Normal Bowel Sounds, Soft, Tenderness (mild). absent: Distended, Guarding, Rebound, Rigid - Rectal Exam Rectal Exam: Deferred - Back Exam Back exam: NORMAL INSPECTION. absent: CVA tenderness (L), CVA tenderness (R) - Neurological Exam Neurological exam: Alert, CN II-XII Intact, Oriented x3 - Psychiatric Exam Psychiatric exam: Normal Affect, Normal Mood - Skin Skin Exam: Dry, Intact, Normal Color, Warm Results - Vital Signs Recent Vital Signs: Last Vital Signs Temp 102.1 F H 08/12/18 16:21 Pulse 101 H 08/12/18 16:31 Resp 21 08/12/18 16:31 BP 95/59 L 08/12/18 14:05 Pulse Ox 96 08/12/18 16:31 - Labs Result Diagrams: 08/12/18 11:05 08/12/18 11:05 Labs: Laboratory Results - last 24 hr 08/12/18 08/12/18 08/12/18 11:05 11:05 11:05 WBC 16.6 H D RBC 4.48 Hgb 14.2 Hct 41.1 MCV 91.6 MCH 31.8 H MCHC 34.7 RDW 13.8 Plt Count 136 MPV 10.1 Neut % (Auto) 89.8 H Lymph % (Auto) 4.5 L [place] % (Auto) 5.5 Eos % (Auto) 0.0 Baso % (Auto) 0.2 Neut # (Auto) 15.0 H Lymph # (Auto) 0.7 L [place] # (Auto) 0.9 H Eos # (Auto) 0.0 Baso # (Auto) 0.0 Neutrophils % (Manual) 79 H Band Neutrophils % 12 H* Lymphocytes % (Manual) 4 L Reactive Lymphs % 2 H Monocytes % (Manual) 3 Platelet Estimate Normal RBC Morphology Normal pO2 VBG pH VBG pCO2 VBG HCO3 VBG Total CO2 VBG O2 Sat (Calc) VBG Base Excess VBG Potassium Glucose Lactate Sodium 133 Potassium 3.9 Chloride 103 Carbon Dioxide 21 L Anion Gap 13 BUN 17 Creatinine 1.3 Est GFR ( Amer) > 60 Est GFR (Non-Af Amer) 54 Random Glucose 121 H Lactic Acid Calcium 8.7 Total Bilirubin 0.9 AST 24 ALT 21 D Alkaline Phosphatase 102 Total Protein 6.6 Albumin 3.4 L Globulin 3.2 Albumin/Globulin Ratio 1.1 Lipase 17 L Venous Blood Potassium Urine Color La Urine Clarity Hazy Urine pH 5.0 Ur Specific [place] 1.018 Urine Protein 1+ H Urine Glucose (UA) Normal Urine Ketones Negative Urine Blood 3+ H Urine Nitrate Negative Urine Bilirubin Negative Urine Urobilinogen Normal Ur Leukocyte Esterase 3+ H Urine WBC (Auto) 609 H Urine RBC (Auto) 193 H Urine WBC Clumps (Auto) Mod H Ur Squamous Epith Cells 2 Urine Bacteria Occ H 08/12/18 08/12/18 11:14 15:15 WBC RBC Hgb Hct MCV MCH MCHC RDW Plt Count MPV Neut % (Auto) Lymph % (Auto) [place] % (Auto) Eos % (Auto) Baso % (Auto) Neut # (Auto) Lymph # (Auto) [place] # (Auto) Eos # (Auto) Baso # (Auto) Neutrophils % (Manual) Band Neutrophils % Lymphocytes % (Manual) Reactive Lymphs % Monocytes % (Manual) Platelet Estimate RBC Morphology pO2 49 VBG pH 7.45 H VBG pCO2 31 L VBG HCO3 23.4 VBG Total CO2 22.5 VBG O2 Sat (Calc) 89.8 H VBG Base Excess -1.6 L VBG Potassium 3.7 Glucose 116 H Lactate 1.5 Sodium 133.0 Potassium Chloride 101.0 Carbon Dioxide Anion Gap BUN Creatinine Est GFR ( Amer) Est GFR (Non-Af Amer) Random Glucose Lactic Acid 1.8 Calcium Total Bilirubin AST ALT Alkaline Phosphatase Total Protein Albumin Globulin Albumin/Globulin Ratio Lipase Venous Blood Potassium 3.7 Urine Color Urine Clarity Urine pH Ur Specific [place] Urine Protein Urine Glucose (UA) Urine Ketones Urine Blood Urine Nitrate Urine Bilirubin Urine Urobilinogen Ur Leukocyte Esterase Urine WBC (Auto) Urine RBC (Auto) Urine WBC Clumps (Auto) Ur Squamous Epith Cells Urine Bacteria Assessment & Plan - Assessment and Plan (Free Text) Assessment: Patient is a 77 yo male without significant PMH who presented with fever and abdominal pain. Patient was admitted for pyelonephritis. CYLINDER SANDER OPERATOR was called for hypotension. Plan: Neuro: - No acute issues - Monitor mental status CV: Pericardial effusion - CT A/P: small pericardial effusion - Echo pending - Cardiology consulted (Eulalio) Pulm: - Maintain spO2>92%- NC PRN GI: - NPO Renal: Pyelonephritis- suspect urolithiasis - CT A/P: no urolithiasis or evidence of recently passed calculus, bladder wall thickening - Flomax 0.4 mg PO daily x5 days - Strain urine for calculi Endo: - Maintain euglycemia Heme: - Monitor H&H ID: Septic shock - CYLINDER SANDER OPERATOR for hypotension - Tmax 103 - Tylenol 650 mg PO Q6H PRN - LA wnl (1.8) - Procal pending - Leukocytosis (16.6) - UA: LE 3+, nitrate neg, blood 3+, 609 WBC, occ cady - Blood, urine Cx pending - NS 2.5 L boluses - NS @ 100 mL/hr - Meropenem 1 g IV Q6H - Vancomycin 1 g IV Q24H - F/u trough - Florastor 250 mg PO BID - ID consulted (El) Ppx: VTE: SCDs, heparin 5000 units SC Q8H GI: PTX 20 mg PO daily Code status: full code Case was discussed with attending, Dr. Radha Vieira. PGY-1 Anh Quinteros D.O. <[place] M - Last Filed: 08/13/18 12:56> Meds - Medications Medications: Current Medications Acetaminophen (Tylenol 325mg Tab) 650 mg PO Q6 PRN PRN Reason: Fever >100.4 F or Pain Last Admin: 08/13/18 06:15 Dose: 650 mg Acetylcysteine (Acetylcysteine 20%) 3 ml PO Q12H [facility] Stop: 08/14/18 22:16 Last Admin: 08/13/18 11:06 Dose: 3 ml Albumin Human (Albumin Human 25% (12.5 Gm/50 Ml)) 25 gm IV Q8 RIRI Stop: 08/14/18 22:53 Heparin Sodium (Porcine) (Heparin) 5,000 units SC Q8 [facility] Last Admin: 08/13/18 06:15 Dose: 5,000 units Sodium Bicarbonate 150 meq/ (Dextrose) 1,150 mls @ 75 mls/hr IV .[id number] [facility] Stop: 08/13/18 23:49 Last Admin: 08/13/18 12:18 Dose: 75 mls/hr Meropenem 1 gm/ Sodium (Chloride) 100 mls @ 100 mls/hr IVPB Q12 RIRI; Protocol Sodium Chloride (Sodium Chloride 0.9%) 1,000 mls @ 75 mls/hr IV .[id number] [facility] Last Admin: 08/13/18 10:15 Dose: 75 mls/hr Lactobacillus Acidophilus (Bacid Acidophilus) 1 cap PO BID [facility] Last Admin: 08/13/18 11:06 Dose: 1 cap Midodrine (Proamatine) 5 mg PO TID RIRI Stop: 08/14/18 22:56 Last Admin: 08/13/18 11:05 Dose: 5 mg Pantoprazole Sodium (Protonix Ec Tab) 20 mg PO DAILY [facility] Last Admin: 08/13/18 11:05 Dose: 20 mg Tamsulosin HCl (Flomax) 0.4 mg PO DAILY [facility] Stop: 08/16/18 10:01 Last Admin: 08/13/18 11:06 Dose: 0.4 mg Results - Vital Signs Recent Vital Signs: Last Vital Signs Temp 98.7 F 08/13/18 12:00 Pulse 70 08/13/18 12:30 Resp 17 08/13/18 12:30 BP 85/43 L 08/13/18 12:04 Pulse Ox 89 L 08/13/18 12:30 - Labs Result Diagrams: 08/13/18 06:59 08/13/18 05:48 Labs: Laboratory Results - last 24 hr 08/12/18 08/12/18 08/12/18 15:15 15:15 18:18 WBC RBC Hgb Hct MCV MCH MCHC RDW Plt Count MPV Neut % (Auto) Lymph % (Auto) [place] % (Auto) Eos % (Auto) Baso % (Auto) Neut # (Auto) Lymph # (Auto) [place] # (Auto) Eos # (Auto) Baso # (Auto) Neutrophils % (Manual) Band Neutrophils % Lymphocytes % (Manual) Monocytes % (Manual) Platelet Estimate Large Platelets RBC Morphology Polychromasia Anisocytosis (manual) Sodium Potassium Chloride Carbon Dioxide Anion Gap BUN Creatinine Est GFR ( Amer) Est GFR (Non-Af Amer) Random Glucose Lactic Acid 1.8 1.1 Calcium Phosphorus Magnesium Total Bilirubin AST ALT Alkaline Phosphatase Total Protein Albumin Globulin Albumin/Globulin Ratio Procalcitonin 31.91 H Urine Color Urine Clarity Urine pH Ur Specific [place] Urine Protein Urine Glucose (UA) Urine Ketones Urine Blood Urine Nitrate Urine Bilirubin Urine Urobilinogen Ur Leukocyte Esterase Urine WBC (Auto) Urine RBC (Auto) Ur Squamous Epith Cells Urine Bacteria Hyaline Casts Random Vancomycin 08/12/18 08/12/18 08/13/18 20:30 20:30 05:48 WBC 10.3 RBC 4.12 L Hgb 13.1 Hct 38.4 MCV 93.0 MCH 31.7 H MCHC 34.1 RDW 14.0 Plt Count 106 L D MPV 9.5 Neut % (Auto) 91.0 H Lymph % (Auto) 4.9 L [place] % (Auto) 3.7 Eos % (Auto) 0.0 Baso % (Auto) 0.4 Neut # (Auto) 9.4 H Lymph # (Auto) 0.5 L [place] # (Auto) 0.4 Eos # (Auto) 0.0 Baso # (Auto) 0.0 Neutrophils % (Manual) 90 H Band Neutrophils % 7 H Lymphocytes % (Manual) 2 L Monocytes % (Manual) 1 Platelet Estimate Slightly decreased L Large Platelets RBC Morphology Normal Polychromasia Anisocytosis (manual) Sodium 137 145 Potassium 4.0 3.8 Chloride 111 H 106 Carbon Dioxide 16 L 18 L Anion Gap 14 24 H BUN 16 35 H Creatinine 1.2 3.2 H Est GFR ( Amer) > 60 23 Est GFR (Non-Af Amer) 59 19 Random Glucose 103 109 Lactic Acid Calcium 7.0 L 6.9 L Phosphorus 2.0 L 5.8 H Magnesium 1.5 L 1.8 Total Bilirubin 0.8 1.5 H AST 33 595 H D ALT 23 74 H D Alkaline Phosphatase 53 109 Total Protein 5.4 L 6.1 L Albumin 2.5 L D 4.0 Globulin 2.9 2.2 Albumin/Globulin Ratio 0.9 L 1.8 Procalcitonin Urine Color Urine Clarity Urine pH Ur Specific [place] Urine Protein Urine Glucose (UA) Urine Ketones Urine Blood Urine Nitrate Urine Bilirubin Urine Urobilinogen Ur Leukocyte Esterase Urine WBC (Auto) Urine RBC (Auto) Ur Squamous Epith Cells Urine Bacteria Hyaline Casts Random Vancomycin 08/13/18 08/13/18 08/13/18 05:48 06:44 06:59 WBC 9.9 RBC 3.75 L Hgb 11.9 L Hct 34.9 L MCV 93.1 MCH 31.7 H MCHC 34.1 RDW 14.1 Plt Count 93 L MPV 9.9 Neut % (Auto) 86.1 H Lymph % (Auto) 8.0 L [place] % (Auto) 5.7 Eos % (Auto) 0.0 Baso % (Auto) 0.2 Neut # (Auto) 8.5 H Lymph # (Auto) 0.8 L [place] # (Auto) 0.6 Eos # (Auto) 0.0 Baso # (Auto) 0.0 Neutrophils % (Manual) 83 H Band Neutrophils % 7 H Lymphocytes % (Manual) 7 L Monocytes % (Manual) 3 Platelet Estimate Decreased L Large Platelets Present RBC Morphology Polychromasia Slight Anisocytosis (manual) Slight Sodium Potassium Chloride Carbon Dioxide Anion Gap BUN Creatinine Est GFR ( Amer) Est GFR (Non-Af Amer) Random Glucose Lactic Acid 1.7 Calcium Phosphorus Magnesium Total Bilirubin AST ALT Alkaline Phosphatase Total Protein Albumin Globulin Albumin/Globulin Ratio Procalcitonin Urine Color Urine Clarity Urine pH Ur Specific [place] Urine Protein Urine Glucose (UA) Urine Ketones Urine Blood Urine Nitrate Urine Bilirubin Urine Urobilinogen Ur Leukocyte Esterase Urine WBC (Auto) Urine RBC (Auto) Ur Squamous Epith Cells Urine Bacteria Hyaline Casts Random Vancomycin 5.0 08/13/18 12:23 WBC RBC Hgb Hct MCV MCH MCHC RDW Plt Count MPV Neut % (Auto) Lymph % (Auto) [place] % (Auto) Eos % (Auto) Baso % (Auto) Neut # (Auto) Lymph # (Auto) [place] # (Auto) Eos # (Auto) Baso # (Auto) Neutrophils % (Manual) Band Neutrophils % Lymphocytes % (Manual) Monocytes % (Manual) Platelet Estimate Large Platelets RBC Morphology Polychromasia Anisocytosis (manual) Sodium Potassium Chloride Carbon Dioxide Anion Gap BUN Creatinine Est GFR ( Amer) Est GFR (Non-Af Amer) Random Glucose Lactic Acid Calcium Phosphorus Magnesium Total Bilirubin AST ALT Alkaline Phosphatase Total Protein Albumin Globulin Albumin/Globulin Ratio Procalcitonin Urine Color Yellow Urine Clarity Hazy Urine pH 5.0 Ur Specific [place] 1.016 Urine Protein Negative Urine Glucose (UA) Normal Urine Ketones Trace Urine Blood 3+ H Urine Nitrate Negative Urine Bilirubin Negative Urine Urobilinogen Normal Ur Leukocyte Esterase 1+ H Urine WBC (Auto) 27 H Urine RBC (Auto) 20 H Ur Squamous Epith Cells < 1 Urine Bacteria Rare Hyaline Casts 6-10 H Random Vancomycin Assessment & Plan - Assessment and Plan (Free Text) Plan: Above patient seen and examined at bedside. Patient s/p rapid -contineu IVF -contineu abx -strain Urine for kidney stones -serial lactic - Date & Time Date: 08/12/18 Time: 19:00
[2018-08-12] MEDS: Pantoprazole 20 mg EC Tab PO SCH (17:45)
[2018-08-12] MEDS: Lactobacillus Acidophilus 500 MU Cap PO SCH (17:45)
[2018-08-12] MEDS ORDERED: Sodium Chloride 0.9% 500 ML IV ONE (18:01)
[2018-08-12] MEDS ORDERED: Sodium Chloride 0.9% 1,000 ML IV SCH ×2 (18:45→19:36)
--- NOTE | 2018-08-12 20:01 | CP.PCM.CON ---
History of Present Illness - History of Present Illness History of Present Illness: Patient is a 77 yo male who admitted for sepsis consulted for percardial effusion PMH: gastritis, bronchitis PSH: none Meds: none All: none FH: unknown SH: former smoker x30 yrs- quit in 2017 Review of Systems - Review of Systems All systems: reviewed and no additional remarkable complaints except - Constitutional Constitutional: As Per HPI, Fever - Cardiovascular Cardiovascular: absent: Chest Pain - Respiratory Respiratory: absent: Dyspnea - Gastrointestinal Gastrointestinal: Abdominal Pain (mild). absent: Constipation, Diarrhea, Nausea, Vomiting - Genitourinary Genitourinary: As Per HPI, Dysuria. absent: Hematuria - Integumentary Integumentary: absent: Lesions Past Patient History - Infectious Disease Hx of Infectious Diseases: None - Tetanus Immunizations Tetanus Immunization: Unknown - Past Medical History & Family History Past Medical History?: Yes Past Family History: Reviewed and not pertinent - Past Social History Smoking Status: Former Smoker Chewing Tobacco Use: No Cigar Use: No Alcohol: None Drugs: Denies - CARDIAC Hx Cardiac Disorders: Yes Other/Comment: CT shows pericardial effusion - PULMONARY Hx Respiratory Disorders: Yes Hx Bronchitis: Yes - NEUROLOGICAL Hx Neurological Disorder: No - HEENT Hx HEENT Problems: No - RENAL Hx Chronic Kidney Disease: No - ENDOCRINE/METABOLIC Hx Endocrine Disorders: No - HEMATOLOGICAL/ONCOLOGICAL Hx Blood Disorders: No - INTEGUMENTARY Hx Dermatological Problems: No - MUSCULOSKELETAL/RHEUMATOLOGICAL Hx Musculoskeletal Disorders: No Hx Falls: No - GASTROINTESTINAL Hx Gastrointestinal Disorders: Yes Hx Gastritis: Yes - GENITOURINARY/GYNECOLOGICAL Hx Genitourinary Disorders: No - PSYCHIATRIC Hx Psychophysiologic Disorder: No Hx Substance Use: No - SURGICAL HISTORY Hx Surgeries: No - ANESTHESIA Hx Anesthesia: No Hx Anesthesia Reactions: No Hx Malignant Hyperthermia: No Has any member of the family had a problem w/ anesthesia?: No Meds Allergies/Adverse Reactions: Allergies Allergy/AdvReac Type Severity Reaction Status Date / Time No Known Allergies Allergy Verified 08/12/18 10:30 - Medications Medications: Current Medications Acetaminophen (Tylenol 325mg Tab) 650 mg PO Q6 PRN PRN Reason: Fever >100.4 F or Pain Sodium Chloride (Sodium Chloride 0.9%) 1,000 mls @ 1,000 mls/hr IV .Q1H ONE Stop: 08/12/18 17:04 Vancomycin/Sodium Chloride (Vancomycin 1 Gm/Ns 200 Ml) 1 gm in 200 mls @ 133 mls/hr IVPB Q24H [facility]; Protocol Stop: 08/17/18 16:01 Meropenem 1,000 mg/ Sodium (Chloride) 100 mls @ 100 mls/hr IVPB Q8H [facility]; Protocol Lactobacillus Acidophilus (Bacid Acidophilus) 1 cap PO BID [facility] Pantoprazole Sodium (Protonix Ec Tab) 20 mg PO DAILY [facility] Tamsulosin HCl (Flomax) 0.4 mg PO DAILY [facility] Stop: 08/16/18 10:01 Physical Exam - Constitutional Appears: Non-toxic, No Acute Distress - Head Exam Head Exam: ATRAUMATIC, NORMAL INSPECTION, NORMOCEPHALIC - Eye Exam Eye Exam: EOMI, Normal appearance, PERRL - ENT Exam ENT Exam: Mucous Membranes Moist - Neck Exam Neck exam: Positive for: Normal Inspection - Respiratory Exam Respiratory Exam: Clear to Auscultation Bilateral, NORMAL BREATHING PATTERN. absent: Respiratory Distress - Cardiovascular Exam Cardiovascular Exam: Tachycardia, REGULAR RHYTHM, +S1, +S2 - GI/Abdominal Exam GI & Abdominal Exam: Normal Bowel Sounds, Soft, Tenderness (mild). absent: Distended, Guarding, Rebound, Rigid - Rectal Exam Rectal Exam: Deferred - Back Exam Back exam: NORMAL INSPECTION. absent: CVA tenderness (L), CVA tenderness (R) - Neurological Exam Neurological exam: Alert, CN II-XII Intact, Oriented x3 - Psychiatric Exam Psychiatric exam: Normal Affect, Normal Mood - Skin Skin Exam: Dry, Intact, Normal Color, Warm Results - Vital Signs Recent Vital Signs: Last Vital Signs Temp 102.1 F H 08/12/18 16:21 Pulse 101 H 08/12/18 16:31 Resp 21 08/12/18 16:31 BP 95/59 L 08/12/18 14:05 Pulse Ox 96 08/12/18 16:31 - Labs Result Diagrams: 08/12/18 11:05 08/12/18 11:05 Labs: Laboratory Results - last 24 hr 08/12/18 08/12/18 08/12/18 11:05 11:05 11:05 WBC 16.6 H D RBC 4.48 Hgb 14.2 Hct 41.1 MCV 91.6 MCH 31.8 H MCHC 34.7 RDW 13.8 Plt Count 136 MPV 10.1 Neut % (Auto) 89.8 H Lymph % (Auto) 4.5 L [place] % (Auto) 5.5 Eos % (Auto) 0.0 Baso % (Auto) 0.2 Neut # (Auto) 15.0 H Lymph # (Auto) 0.7 L [place] # (Auto) 0.9 H Eos # (Auto) 0.0 Baso # (Auto) 0.0 Neutrophils % (Manual) 79 H Band Neutrophils % 12 H* Lymphocytes % (Manual) 4 L Reactive Lymphs % 2 H Monocytes % (Manual) 3 Platelet Estimate Normal RBC Morphology Normal pO2 VBG pH VBG pCO2 VBG HCO3 VBG Total CO2 VBG O2 Sat (Calc) VBG Base Excess VBG Potassium Glucose Lactate Sodium 133 Potassium 3.9 Chloride 103 Carbon Dioxide 21 L Anion Gap 13 BUN 17 Creatinine 1.3 Est GFR ( Amer) > 60 Est GFR (Non-Af Amer) 54 Random Glucose 121 H Lactic Acid Calcium 8.7 Total Bilirubin 0.9 AST 24 ALT 21 D Alkaline Phosphatase 102 Total Protein 6.6 Albumin 3.4 L Globulin 3.2 Albumin/Globulin Ratio 1.1 Lipase 17 L Venous Blood Potassium Urine Color La Urine Clarity Hazy Urine pH 5.0 Ur Specific Shunk 1.018 Urine Protein 1+ H Urine Glucose (UA) Normal Urine Ketones Negative Urine Blood 3+ H Urine Nitrate Negative Urine Bilirubin Negative Urine Urobilinogen Normal Ur Leukocyte Esterase 3+ H Urine WBC (Auto) 609 H Urine RBC (Auto) 193 H Urine WBC Clumps (Auto) Mod H Ur Squamous Epith Cells 2 Urine Bacteria Occ H 08/12/18 08/12/18 11:14 15:15 WBC RBC Hgb Hct MCV MCH MCHC RDW Plt Count MPV Neut % (Auto) Lymph % (Auto) [place] % (Auto) Eos % (Auto) Baso % (Auto) Neut # (Auto) Lymph # (Auto) [place] # (Auto) Eos # (Auto) Baso # (Auto) Neutrophils % (Manual) Band Neutrophils % Lymphocytes % (Manual) Reactive Lymphs % Monocytes % (Manual) Platelet Estimate RBC Morphology pO2 49 VBG pH 7.45 H VBG pCO2 31 L VBG HCO3 23.4 VBG Total CO2 22.5 VBG O2 Sat (Calc) 89.8 H VBG Base Excess -1.6 L VBG Potassium 3.7 Glucose 116 H Lactate 1.5 Sodium 133.0 Potassium Chloride 101.0 Carbon Dioxide Anion Gap BUN Creatinine Est GFR ( Amer) Est GFR (Non-Af Amer) Random Glucose Lactic Acid 1.8 Calcium Total Bilirubin AST ALT Alkaline Phosphatase Total Protein Albumin Globulin Albumin/Globulin Ratio Lipase Venous Blood Potassium 3.7 Urine Color Urine Clarity Urine pH Ur Specific [place] Urine Protein Urine Glucose (UA) Urine Ketones Urine Blood Urine Nitrate Urine Bilirubin Urine Urobilinogen Ur Leukocyte Esterase Urine WBC (Auto) Urine RBC (Auto) Urine WBC Clumps (Auto) Ur Squamous Epith Cells Urine Bacteria Assessment & Plan - Assessment and Plan (Free Text) Assessment: Patient is a 77 yo male without significant PMH who presented with fever and abdominal pain. Patient was admitted for pyelonephritis. 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 Plan: Neuro: - No acute issues - Monitor mental status CV: Pericardial effusion - CT A/P: small pericardial effusion - Echo pending - Cardiology consulted (Eulalio) Pulm: - Maintain spO2>92%- NC PRN GI: - NPO Renal: Pyelonephritis- suspect urolithiasis - CT A/P: no urolithiasis or evidence of recently passed calculus, bladder wall thickening - Flomax 0.4 mg PO daily x5 days - Strain urine for calculi Endo: - Maintain euglycemia Heme: - Monitor H&H ID: Septic shock - TECHNICAL TRAINING INSTRUCTOR for hypotension - Tmax 103 - Tylenol 650 mg PO Q6H PRN - LA wnl (1.8) - Procal pending - Leukocytosis (16.6) - UA: LE 3+, nitrate neg, blood 3+, 609 WBC, occ cady - Blood, urine Cx pending - NS 2.5 L boluses - NS @ 100 mL/hr - Meropenem 1 g IV Q6H - Vancomycin 1 g IV Q24H - F/u trough - Florastor 250 mg PO BID - ID consulted (El) Ppx: VTE: SCDs, heparin 5000 units SC Q8H GI: PTX 20 mg PO daily Code status: full code ECHO: Small pleural effusion Normal EF Past Patient History - Infectious Disease Hx of Infectious Diseases: None - Tetanus Immunizations Tetanus Immunization: Unknown - Past Medical History & Family History Past Medical History?: Yes Past Family History: Reviewed and not pertinent - Past Social History Smoking Status: Former Smoker Chewing Tobacco Use: No Cigar Use: No Alcohol: None Drugs: Denies - CARDIAC Hx Cardiac Disorders: Yes Other/Comment: CT shows pericardial effusion - PULMONARY Hx Respiratory Disorders: Yes Hx Bronchitis: Yes - NEUROLOGICAL Hx Neurological Disorder: No - HEENT Hx HEENT Problems: No - RENAL Hx Chronic Kidney Disease: No - ENDOCRINE/METABOLIC Hx Endocrine Disorders: No - HEMATOLOGICAL/ONCOLOGICAL Hx Blood Disorders: No - INTEGUMENTARY Hx Dermatological Problems: No - MUSCULOSKELETAL/RHEUMATOLOGICAL Hx Musculoskeletal Disorders: No Hx Falls: No - GASTROINTESTINAL Hx Gastrointestinal Disorders: Yes Hx Gastritis: Yes - GENITOURINARY/GYNECOLOGICAL Hx Genitourinary Disorders: No - PSYCHIATRIC Hx Psychophysiologic Disorder: No Hx Substance Use: No - SURGICAL HISTORY Hx Surgeries: No - ANESTHESIA Hx Anesthesia: No Hx Anesthesia Reactions: No Hx Malignant Hyperthermia: No Has any member of the family had a problem w/ anesthesia?: No Meds Allergies/Adverse Reactions: Allergies Allergy/AdvReac Type Severity Reaction Status Date / Time No Known Allergies Allergy Verified 08/12/18 10:30 - Medications Medications: Current Medications Acetaminophen (Tylenol 325mg Tab) 650 mg PO Q6 PRN PRN Reason: Fever >100.4 F or Pain Acetaminophen (Tylenol 650 Mg Supp) 650 mg LA ONCE ONE Stop: 08/12/18 20:01 Last Admin: 08/12/18 19:55 Dose: 650 mg Acetaminophen (Tylenol 650 Mg Supp) 650 mg LA ONCE ONE Stop: 08/12/18 20:01 Last Admin: 08/12/18 19:55 Dose: Not Given Heparin Sodium (Porcine) (Heparin) 5,000 units SC Q8 [facility] Vancomycin/Sodium Chloride (Vancomycin 1 Gm/Ns 200 Ml) 1 gm in 200 mls @ 133 mls/hr IVPB Q24H [facility]; Protocol Stop: 08/17/18 16:01 Last Admin: 08/12/18 17:00 Dose: 133 mls/hr Meropenem 1,000 mg/ Sodium (Chloride) 100 mls @ 100 mls/hr IVPB Q8H [facility]; Protocol Sodium Chloride (Sodium Chloride 0.9%) 1,000 mls @ 250 mls/hr IV .Q4H [facility] Stop: 08/12/18 22:44 Last Admin: 08/12/18 19:55 Dose: 250 mls/hr Lactobacillus Acidophilus (Bacid Acidophilus) 1 cap PO BID [facility] Last Admin: 08/12/18 17:45 Dose: 1 cap Pantoprazole Sodium (Protonix Ec Tab) 20 mg PO DAILY [facility] Last Admin: 08/12/18 17:45 Dose: 20 mg Tamsulosin HCl (Flomax) 0.4 mg PO DAILY [facility] Stop: 08/16/18 10:01 Last Admin: 08/12/18 17:45 Dose: 0.4 mg Results - Vital Signs Recent Vital Signs: Last Vital Signs Temp 101.3 F H 08/12/18 19:55 Pulse 110 H 08/12/18 19:20 Resp 28 H 08/12/18 19:20 BP 69/42 L 08/12/18 19:19 Pulse Ox 96 08/12/18 19:20 - Labs Result Diagrams: 08/13/18 06:59 08/13/18 05:48 Labs: Laboratory Results - last 24 hr 08/12/18 08/12/18 08/12/18 11:05 11:05 11:05 WBC 16.6 H D RBC 4.48 Hgb 14.2 Hct 41.1 MCV 91.6 MCH 31.8 H MCHC 34.7 RDW 13.8 Plt Count 136 MPV 10.1 Neut % (Auto) 89.8 H Lymph % (Auto) 4.5 L [place] % (Auto) 5.5 Eos % (Auto) 0.0 Baso % (Auto) 0.2 Neut # (Auto) 15.0 H Lymph # (Auto) 0.7 L [place] # (Auto) 0.9 H Eos # (Auto) 0.0 Baso # (Auto) 0.0 Neutrophils % (Manual) 79 H Band Neutrophils % 12 H* Lymphocytes % (Manual) 4 L Reactive Lymphs % 2 H Monocytes % (Manual) 3 Platelet Estimate Normal RBC Morphology Normal pO2 VBG pH VBG pCO2 VBG HCO3 VBG Total CO2 VBG O2 Sat (Calc) VBG Base Excess VBG Potassium Glucose Lactate Sodium 133 Potassium 3.9 Chloride 103 Carbon Dioxide 21 L Anion Gap 13 BUN 17 Creatinine 1.3 Est GFR ( Amer) > 60 Est GFR (Non-Af Amer) 54 Random Glucose 121 H Lactic Acid Calcium 8.7 Total Bilirubin 0.9 AST 24 ALT 21 D Alkaline Phosphatase 102 Total Protein 6.6 Albumin 3.4 L Globulin 3.2 Albumin/Globulin Ratio 1.1 Lipase 17 L Procalcitonin Venous Blood Potassium Urine Color La Urine Clarity Hazy Urine pH 5.0 Ur Specific [place] 1.018 Urine Protein 1+ H Urine Glucose (UA) Normal Urine Ketones Negative Urine Blood 3+ H Urine Nitrate Negative Urine Bilirubin Negative Urine Urobilinogen Normal Ur Leukocyte Esterase 3+ H Urine WBC (Auto) 609 H Urine RBC (Auto) 193 H Urine WBC Clumps (Auto) Mod H Ur Squamous Epith Cells 2 Urine Bacteria Occ H 08/12/18 08/12/18 08/12/18 11:14 15:15 15:15 WBC RBC Hgb Hct MCV MCH MCHC RDW Plt Count MPV Neut % (Auto) Lymph % (Auto) [place] % (Auto) Eos % (Auto) Baso % (Auto) Neut # (Auto) Lymph # (Auto) [place] # (Auto) Eos # (Auto) Baso # (Auto) Neutrophils % (Manual) Band Neutrophils % Lymphocytes % (Manual) Reactive Lymphs % Monocytes % (Manual) Platelet Estimate RBC Morphology pO2 49 VBG pH 7.45 H VBG pCO2 31 L VBG HCO3 23.4 VBG Total CO2 22.5 VBG O2 Sat (Calc) 89.8 H VBG Base Excess -1.6 L VBG Potassium 3.7 Glucose 116 H Lactate 1.5 Sodium 133.0 Potassium Chloride 101.0 Carbon Dioxide Anion Gap BUN Creatinine Est GFR ( Amer) Est GFR (Non-Af Amer) Random Glucose Lactic Acid 1.8 Calcium Total Bilirubin AST ALT Alkaline Phosphatase Total Protein Albumin Globulin Albumin/Globulin Ratio Lipase Procalcitonin 31.91 H Venous Blood Potassium 3.7 Urine Color Urine Clarity Urine pH Ur Specific [place] Urine Protein Urine Glucose (UA) Urine Ketones Urine Blood Urine Nitrate Urine Bilirubin Urine Urobilinogen Ur Leukocyte Esterase Urine WBC (Auto) Urine RBC (Auto) Urine WBC Clumps (Auto) Ur Squamous Epith Cells Urine Bacteria 08/12/18 18:18 WBC RBC Hgb Hct MCV MCH MCHC RDW Plt Count MPV Neut % (Auto) Lymph % (Auto) [place] % (Auto) Eos % (Auto) Baso % (Auto) Neut # (Auto) Lymph # (Auto) [place] # (Auto) Eos # (Auto) Baso # (Auto) Neutrophils % (Manual) Band Neutrophils % Lymphocytes % (Manual) Reactive Lymphs % Monocytes % (Manual) Platelet Estimate RBC Morphology pO2 VBG pH VBG pCO2 VBG HCO3 VBG Total CO2 VBG O2 Sat (Calc) VBG Base Excess VBG Potassium Glucose Lactate Sodium Potassium Chloride Carbon Dioxide Anion Gap BUN Creatinine Est GFR ( Amer) Est GFR (Non-Af Amer) Random Glucose Lactic Acid 1.1 Calcium Total Bilirubin AST ALT Alkaline Phosphatase Total Protein Albumin Globulin Albumin/Globulin Ratio Lipase Procalcitonin Venous Blood Potassium Urine Color Urine Clarity Urine pH Ur Specific [place] Urine Protein Urine Glucose (UA) Urine Ketones Urine Blood Urine Nitrate Urine Bilirubin Urine Urobilinogen Ur Leukocyte Esterase Urine WBC (Auto) Urine RBC (Auto) Urine WBC Clumps (Auto) Ur Squamous Epith Cells Urine Bacteria
--- NOTE | 2018-08-12 20:05 | PCM.SEPTIC ---
Sepsis Progress Note - Reassessment Type Date of Evaluation: 08/12/18 Time of Evaluation: 20:53 Reassessment Type: Non-invasive reassessment - Non Invasive Reassessment Were the most recent vital sign reviewed: Yes Vital Sign (Latest): Temp Pulse Resp BP Pulse Ox 99.0 Oral 110 H 13 95/50 96 08/12/18 20:55 08/12/18 20:55 08/12/18 19:20 08/12/18 20:55 08/12/18 20:55 Cardiovascular: Yes: Tachycardia. No: Gallop, Murmur Respiratory: Yes: Normal Breath Sounds. No: Accessory Muscle Use, Rales, Rhonchi, Wheezing, Respiratory Distress Capillary Refill: Normal (Less than 2 sec) Skin: Normal Color, Warm, Dry
[2018-08-12 20:34] LABS: BASO % 0.4 % (0.0-2.0); HEMOGLOBIN 13.1 g/dL (12.0-18.0); LYMPH # 0.5 K/uL (1.0-4.3); LYMPH % 4.9 % (20.0-40.0); MEAN CORPUSCULAR HEMOGLOBIN 31.7 pg (27.0-31.0); MEAN CORPUSCULAR HGB CONC 34.1 g/dL (33.0-37.0); MEAN PLATELET VOLUME 9.5 fL (7.2-11.7); MONO # 0.4 K/uL (0.0-0.8); MONO % 3.7 % (0.0-10.0); NEUT # 9.4 K/uL (1.8-7.0); RBC 4.12 Mil/uL (4.40-5.90); WHITE BLOOD COUNT 10.3 K/uL (4.8-10.8)
[2018-08-12 20:44] LABS: PLATELET COUNT 106 K/uL (130-400)
[2018-08-12 21:04] LABS: ALB/GLOB RATIO 0.9 (1.0-2.1); ALBUMIN 2.5 g/dL (3.5-5.0); ALT/SGPT 23 U/L (21-72); AST/SGOT 33 U/L (17-59); BLOOD UREA NITROGEN 16 mg/dL (9-20); GFR NON-AFRICAN AMERICAN 59
[2018-08-12] MEDS ORDERED: Magnesium Sulfate 1 gm in D5W 1 GM/100 ML BAG IVPB ONE (21:06)
[2018-08-12 21:17] LABS: BANDS 7 % (0-2); LYMPHOCYTE 2 % (20-40); MONOCYTE 1 % (0-10); NEUTROPHIL 90 % (50-75); TOTAL CELLS COUNTED 100
[2018-08-12 21:18] LABS: PLATELET ESTIMATE SLIGHTLY DECREASED (NORMAL)
[2018-08-12] MEDS: Albumin Human 25% (12.5 gm/50 ml) IV SCH (23:15)
[2018-08-12] MEDS: Meropenem 1,000 MG in Sodium Chloride 0.9% 100 ML IVPB SCH (23:40)
[2018-08-13] MEDS ORDERED: Gentamicin 300 MG in Sodium Chloride 0.9% 100 ML IVPB SCH (00:30)
[2018-08-13] MEDS ORDERED: Sodium Chloride 0.9% 1,000 ML IV SCH (02:00)
[2018-08-13] MEDS: Albumin Human 25% (12.5 gm/50 ml) IV SCH ×3 (06:15→21:10)
[2018-08-13 06:29] LABS: ALB/GLOB RATIO 1.8 (1.0-2.1); CALCIUM 6.9 mg/dl (8.6-10.4)
[2018-08-13 07:02] LABS: BASO % 0.2 % (0.0-2.0); HEMOGLOBIN 11.9 g/dL (12.0-18.0); LYMPH # 0.8 K/uL (1.0-4.3); MEAN CELL VOLUME 93.1 fL (80.0-94.0); MEAN CORPUSCULAR HEMOGLOBIN 31.7 pg (27.0-31.0); MEAN CORPUSCULAR HGB CONC 34.1 g/dL (33.0-37.0); MEAN PLATELET VOLUME 9.9 fL (7.2-11.7); MONO # 0.6 K/uL (0.0-0.8); MONO % 5.7 % (0.0-10.0); NEUT # 8.5 K/uL (1.8-7.0); NEUT % 86.1 % (50.0-75.0); PLATELET COUNT 93 K/uL (130-400); RBC 3.75 Mil/uL (4.40-5.90); RED CELL DISTRIBUTION WIDTH 14.1 % (11.5-14.5); WHITE BLOOD COUNT 9.9 K/uL (4.8-10.8)
[2018-08-13] MEDS: Meropenem 1,000 MG in Sodium Chloride 0.9% 100 ML IVPB SCH (08:57)
--- NOTE | 2018-08-13 09:02 | CON ---
DATE: 08/12/2018 HISTORY OF PRESENT ILLNESS: The patient is a 77-year-old. He was admitted today. He was admitted with fever and he had come from the emergency room with 103 and the patient was shaking with chills when I saw him. He was complaining of a right upper quadrant pain that was going to the back. He denied any nausea, vomiting, or diarrhea. He does complain of pain. He also has history of gastritis. He also has urinary symptoms of burning. He denies any penile or testicular pain. He denies any prostate issues. He has no hematuria, incontinence, back pain. No urinary frequency. ALLERGIC: HE IS NOT ALLERGIC TO ANY MEDICINE. SOCIAL HISTORY: Negative for smoking, drinking, or any drug abuse. REVIEW OF SYSTEMS: He did have fevers. He denied any headaches. Denies any ear, nose, or throat problems. Denies any chest pain. No shortness of breath. No abdominal pain. No nausea, no vomiting. Does complain of abdominal pain on the right side and no leg pain. PHYSICAL EXAMINATION: VITAL SIGNS: I find his temperature was 102. He was hypotensive at 81/38, pulse of 49, respirations were 23. GENERAL: He was able to answer questions. HEENT: Head was atraumatic, normocephalic. Pupils were reacting to light. Tongue was dry. NECK: Supple. JVP was flat. LUNGS: Clear. No crackles or rales present. HEART: S1, S2 was regular. No murmurs appreciated. ABDOMEN: Soft, nontender. Right upper quadrant tenderness present. No guarding, no rigidity present. No CVA tenderness present. Bowel sounds were plus. EXTREMITIES: Have no edema, clubbing, or cyanosis. LABORATORY DATA: Labs are noted. Labs show white count is 10 now. It was 16.6 before. Hemoglobin is 14.2, hematocrit 41.1, platelet count 136. Neutrophils are 79, bands are 12, lymphocytes are 4. ABG was done, which showed a lactate level of 1.5. Sodium 137; potassium 4; chloride of 111; BUN is 16; creatinine is 1.2 now, it was 1.3 before. The patient's procalcitonin level is 31.91, and the patient was moved over to ICU. At the same time, urine showed 1+ protein, 3+ blood, and [address] he had chills, it seemed like he would have septicemia. I hope they did blood cultures and urine culture. Blood cultures are received, and urine culture was received. He also had an abdominal CT and small pericardial effusion that is focally moderate in size, posterolateral to the left with the maximum depth of 1.8. No urolithiasis or evidence of recently passed with calculus. Bladder wall under distention versus infection. Correlation with urinalysis and cultures. So, he may have cystitis, but he also has small pericardial effusion. He went for an echo when I went to see him, results of which are pending at this time. The patient is already started on Merrem and vancomycin at this time, and we will follow. His chest x-ray shows no active disease. So at this time, we will need to follow the echo for pericardial effusion and for sepsis. A.m blood cultures were done, and he is on vancomycin and Merrem. He still is hypotensive and his creatinine is 1.2, so we will give him a dose of gentamicin . We will follow. Rajesh Gallegos MD
[2018-08-13 09:42] LABS: BANDS 7 % (0-2); LYMPHOCYTE 7 % (20-40); MONOCYTE 3 % (0-10); NEUTROPHIL 83 % (50-75); PLATELET ESTIMATE DECREASED (NORMAL); TOTAL CELLS COUNTED 100
[2018-08-13 09:43] LABS: ANISOCYTOSIS SLIGHT; LARGE PLATELETS PRESENT; POLYCHROMIC SLIGHT
[2018-08-13] MEDS ORDERED: Sodium Chloride 0.9% 500 ML IV ONE (10:00)
--- NOTE | 2018-08-13 10:14 | CP.PCM.PN ---
Subjective - Date & Time of Evaluation Date of Evaluation: 08/13/18 Time of Evaluation: 10:12 - Subjective Subjective: Patient remains afebrile, c/o right abdominal pain Objective - Vital Signs/Intake and Output Vital Signs (last 24 hours): Temp Pulse Resp BP Pulse Ox 99.8 F H 78 16 82/42 L 98 08/13/18 08:00 08/13/18 09:15 08/13/18 09:15 08/13/18 08:30 08/13/18 09:15 Intake and Output: 08/13/18 08/13/18 06:59 18:59 Intake Total 2635 850 Output Total 550 0 Balance 2085 850 - Medications Medications: Current Medications Acetaminophen (Tylenol 325mg Tab) 650 mg PO Q6 PRN PRN Reason: Fever >100.4 F or Pain Last Admin: 08/13/18 06:15 Dose: 650 mg Acetylcysteine (Acetylcysteine 20%) 600 ml PO Q12H [facility] Stop: 08/14/18 22:16 Albumin Human (Albumin Human 25% (12.5 Gm/50 Ml)) 25 gm IV Q8 [facility] Stop: 08/14/18 22:53 Heparin Sodium (Porcine) (Heparin) 5,000 units SC Q8 [facility] Last Admin: 08/13/18 06:15 Dose: 5,000 units Sodium Chloride (Sodium Chloride 0.9%) 500 mls @ 1,000 mls/hr IV .Q30M ONE Stop: 08/13/18 10:29 Sodium Bicarbonate 150 meq/ (Dextrose) 1,150 mls @ 75 mls/hr IV .[id number] [facility] Stop: 08/13/18 23:49 Meropenem 1 gm/ Sodium (Chloride) 100 mls @ 100 mls/hr IVPB Q12 [facility]; Protocol Sodium Chloride (Sodium Chloride 0.9%) 1,000 mls @ 75 mls/hr IV .[id number] [facility] Lactobacillus Acidophilus (Bacid Acidophilus) 1 cap PO BID [facility] Last Admin: 08/12/18 17:45 Dose: 1 cap Midodrine (Proamatine) 5 mg PO TID [facility] Stop: 08/14/18 22:56 Last Admin: 08/12/18 23:15 Dose: 5 mg Pantoprazole Sodium (Protonix Ec Tab) 20 mg PO DAILY [facility] Last Admin: 08/12/18 17:45 Dose: 20 mg Tamsulosin HCl (Flomax) 0.4 mg PO DAILY [facility] Stop: 08/16/18 10:01 Last Admin: 08/12/18 17:45 Dose: 0.4 mg - Labs Labs: 08/13/18 06:59 08/13/18 05:48 - Head Exam Head Exam: ATRAUMATIC, NORMAL INSPECTION, NORMOCEPHALIC - Eye Exam Pupil Exam: NORMAL ACCOMODATION - ENT Exam ENT Exam: Mucous Membranes Moist - Respiratory Exam Respiratory Exam: NORMAL BREATHING PATTERN - Cardiovascular Exam Cardiovascular Exam: REGULAR RHYTHM, +S1, +S2 - Neurological Exam Neurological Exam: Alert, Awake, Oriented x3 - Skin Skin Exam: Warm Assessment and Plan - Assessment and Plan (Free Text) Assessment: Complex UTI/Sepsis: obtain CT abd/pelvis, continue broad specturm abx as per ID, avoid nephrotoxic drugs -GNR urine: continuemero, check genta level ASHLIE-continue IVF, renal consult continue dvt/pud ppx prognosis guarded until renal function improves and source of infection identified d/w patient, patient's daughters(2) and mother
[2018-08-13] MEDS: Sodium Chloride 0.9% 1,000 ML IV SCH (10:15)
[2018-08-13] MEDS ORDERED: Sodium Bicarbonate 8.4% 150 MEQ in Dextrose 5% In Water 1,000 ML IV SCH (10:30)
[2018-08-13] MEDS: Pantoprazole 20 mg EC Tab PO SCH (11:05)
[2018-08-13] MEDS: Acetylcysteine 20% Inhal Soln (4ml) PO SCH ×2 (11:06→21:21)
[2018-08-13] MEDS: Lactobacillus Acidophilus 500 MU Cap PO SCH ×2 (11:06→18:13)
[2018-08-13 12:36] LABS: SQUAMOUS EPITHIAL < 1 /hpf (0-5); URINE BACTERIA RARE (<OCC); URINE BILIRUBIN NEGATIVE (NEGATIVE); URINE BLOOD 3+ (NEGATIVE); URINE CLARITY Hazy (Clear); URINE COLOR Yellow (YELLOW); URINE GLUCOSE (UA) NORMAL (Normal); URINE LEUKOCYTE ESTERASE 1+ Leu/uL (Negative); URINE PROTEIN NEGATIVE (NEGATIVE); URINE UROBILINOGEN NORMAL mg/dL (0.2-1.0)
--- NOTE | 2018-08-13 15:07 | CT ---
Date of service: 08/13/2018 PROCEDURE: CT Abdomen and Pelvis without intravenous contrast HISTORY: r/o hydro COMPARISON: Abdomen pelvis CT without contrast 08/12/2018.. TECHNIQUE: Helical CT of the abdomen and pelvis was performed without oral or intravenous contrast as per referring physician request. Coronal and sagittal reformats were generated. Contrast dose: None Radiation dose: Total exam DLP = 855.68 mGy-cm. This CT exam was performed using one or more of the following dose reduction techniques: Automated exposure control, adjustment of the mA and/or kV according to patient size, and/or use of iterative reconstruction technique. FINDINGS: Images through the lung bases reveal no interval mild bilateral pleural effusions slightly greater the right than left exerting compression atelectasis at the bilateral lower lobes. Mild pericardial effusion persists and is unchanged. A small hiatal hernia is reiterated. Pulmonary vascular congestion is not excluded. Images of the liver appears stable including a few calcified granulomata and a minimally complex cyst at the right lobe 0.2 cm greatest dimension. The spleen, pancreas, bilateral adrenal glands and gallbladder appear stable and unremarkable. Bilateral renal cysts are reiterated, limited in evaluation due lack images contrast including a large exophytic cyst related to the upper midpole right kidney measuring 6.0 cm greatest dimension once again in the largest left renal cyst exophytic off the upper pole measuring only 2.5 cm greatest dimension. Nonspecific bilateral streaky perinephric changes seen bilaterally. No hydronephrosis or radiodense urolithiasis bilaterally. The stomach remains collapsed though limited amount of gas is seen in the fundus. No bowel obstruction once again. Evaluation of the gastrointestinal tract is limited due to the lack of oral contrast administration. Fluid is seen the right hemicolon and also in the rectum/distal sigmoid colon. No overt colitis pattern appreciated. Mesentery is stable. Non aneurysmal atherosclerotic abdominal aortic iliac system is appreciated. No gross lymphadenopathy. Urinary bladder is stable in appearance with no inadequate distention noted in the prostate gland is grossly enlarged once again. No suspicious bony changes once again. OTHER FINDINGS: None. IMPRESSION: 1. No interval obstructive uropathy. Bilateral renal cysts reiterated greater the right than left kidney. No intrarenal calculi identified radiodense. 2. No acute abdominal or pelvic findings. Lack of contrast agents limits interpretation. 3. Suboptimal distention urinary bladder with mural thickening poorly evaluated, potentially reflecting cystitis. 4. Lesser additional findings as discussed above.
--- NOTE | 2018-08-13 15:11 | CARD ---
APPROVED REPORT Date of service: 08/12/2018 EXAM: Two-dimensional and M-mode echocardiogram with Doppler and color Doppler. Other Information Quality : TDSRhythm : INDICATION Pericardial Effusion Sepsis 2D DIMENSIONS IVSd0.6 (0.7-1.1cm)LVDd3.9 (3.9-5.9cm) PWd0.9 (0.7-1.1cm)LA Quueqt88 (18-58mL) LVDs2.7 (2.5-4.0cm)FS (%) 31.1 % LVEF (%)59.6 (>50%)LVEF ([facility]oy's)78.84 % M-Mode DIMENSIONS Left Atrium (MM)2.82 (2.5-4.0cm)IVSd0.86 (0.7-1.1cm) Aortic Root2.99 (2.2-3.7cm)LVDd3.99 (4.0-5.6cm) Aortic Cusp Exc.2.35 (1.5-2.0cm)PWd0.88 (0.7-1.1cm) FS (%) 45 %LVDs2.18 (2.0-3.8cm) LVEF (%)77 (>50%) Mitral Valve MV E Mrrhsbgg29.4cm/sMV A Foupdxfn97.6cm/sE/A ratio1.0 TDI Lateral E' Peak V10.28cm/sMedial E' Peak V12.17cm/sE/Lateral E'7.1 E/Medial E'6.0 Tricuspid Valve TR Peak Mpypubqy236rg/sTR Peak Gr.25bpReWBHR51jiRn LEFT VENTRICLE The left ventricle is normal size. There is normal left ventricular wall thickness. Left ventricle systolic function is normal. The Ejection Fraction is >70%. There is normal LV segmental wall motion. The left ventricular diastolic function is normal. No left ventricle thrombus noted on this study. RIGHT VENTRICLE The right ventricle is normal size. There is normal right ventricular wall thickness. The right ventricular systolic function is normal. ATRIA The left atrium size is normal. The right atrium size is normal. The interatrial septum is intact with no evidence for an atrial septal defect. AORTIC VALVE The aortic valve is normal in structure. No aortic regurgitation is present. There is no aortic valvular stenosis. There is no aortic valvular vegetation. MITRAL VALVE The mitral valve is normal in structure. There is no evidence of mitral valve prolapse. There is no mitral valve stenosis. There is no mitral valve regurgitation noted. TRICUSPID VALVE The tricuspid valve is normal in structure. There is trace tricuspid regurgitation. Right ventricular systolic pressure is estimated at 30-40 mmHg. There is mild pulmonary hypertension. PULMONIC VALVE The pulmonic valve is not well visualized. There is no pulmonic valvular regurgitation. GREAT VESSELS The aortic root is normal in size. PERICARDIAL EFFUSION There is no significant pericardial effusion. <Conclusion> Left ventricle systolic function is normal. The Ejection Fraction is >70%. No aortic regurgitation is present. There is no mitral valve regurgitation noted. There is trace tricuspid regurgitation. There is mild pulmonary hypertension. There is no pulmonic valvular regurgitation.
--- NOTE | 2018-08-13 19:13 | CP.PCM.PN ---
Subjective - Date & Time of Evaluation Date of Evaluation: 08/13/18 Time of Evaluation: 19:10 - Subjective Subjective: dictated Objective - Vital Signs/Intake and Output Vital Signs (last 24 hours): Temp Pulse Resp BP Pulse Ox 101 F H 68 20 88/42 L 99 08/13/18 14:19 08/13/18 15:00 08/13/18 15:00 08/13/18 14:04 08/13/18 15:00 Intake and Output: 08/13/18 08/14/18 18:59 05:59 Intake Total 1700 Output Total 61 Balance 1639 - Medications Medications: Current Medications Acetaminophen (Tylenol 325mg Tab) 650 mg PO Q6 PRN PRN Reason: Fever >100.4 F or Pain Last Admin: 08/13/18 13:19 Dose: 650 mg Acetylcysteine (Acetylcysteine 20%) 3 ml PO Q12H [facility] Stop: 08/14/18 22:16 Last Admin: 08/13/18 11:06 Dose: 3 ml Albumin Human (Albumin Human 25% (12.5 Gm/50 Ml)) 25 gm IV Q8 [facility] Stop: 08/14/18 22:53 Last Admin: 08/13/18 15:11 Dose: 25 gm Heparin Sodium (Porcine) (Heparin) 5,000 units SC Q8 [facility] Last Admin: 08/13/18 15:00 Dose: 5,000 units Sodium Bicarbonate 150 meq/ (Dextrose) 1,150 mls @ 75 mls/hr IV .[id number] [facility] Stop: 08/13/18 23:49 Last Admin: 08/13/18 12:18 Dose: 75 mls/hr Meropenem 1 gm/ Sodium (Chloride) 100 mls @ 100 mls/hr IVPB Q12 [facility]; Protocol Sodium Chloride (Sodium Chloride 0.9%) 1,000 mls @ 75 mls/hr IV .[id number] [facility] Last Admin: 08/13/18 10:15 Dose: 75 mls/hr Lactobacillus Acidophilus (Bacid Acidophilus) 1 cap PO BID [facility] Last Admin: 08/13/18 18:13 Dose: 1 cap Midodrine (Proamatine) 5 mg PO TID [facility] Stop: 08/14/18 22:56 Last Admin: 08/13/18 18:13 Dose: 5 mg Pantoprazole Sodium (Protonix Ec Tab) 20 mg PO DAILY [facility] Last Admin: 08/13/18 11:05 Dose: 20 mg Tamsulosin HCl (Flomax) 0.4 mg PO DAILY [facility] Stop: 08/16/18 10:01 Last Admin: 08/13/18 11:06 Dose: 0.4 mg - Labs Labs: 08/13/18 06:59 08/13/18 05:48
[2018-08-13] MEDS: Meropenem 1 GM in Sodium Chloride 0.9% 100 ML IVPB SCH (21:09)
--- NOTE | 2018-08-13 21:43 | CP.PCM.PN ---
Subjective - Date & Time of Evaluation Date of Evaluation: 08/13/18 Time of Evaluation: 15:15 - Subjective Subjective: Patient seen and evaluated No cardiac events Review of Systems - Review of Systems All systems: reviewed and no additional remarkable complaints except - Constitutional Constitutional: As Per HPI, Fever - Cardiovascular Cardiovascular: absent: Chest Pain - Respiratory Respiratory: absent: Dyspnea - Gastrointestinal Gastrointestinal: Abdominal Pain (mild). absent: Constipation, Diarrhea, Nausea, Vomiting - Genitourinary Genitourinary: As Per HPI, Dysuria. absent: Hematuria - Integumentary Integumentary: absent: Lesions Past Patient History - Infectious Disease Hx of Infectious Diseases: None - Tetanus Immunizations Tetanus Immunization: Unknown - Past Medical History & Family History Past Medical History?: Yes Past Family History: Reviewed and not pertinent - Past Social History Smoking Status: Former Smoker Chewing Tobacco Use: No Cigar Use: No Alcohol: None Drugs: Denies - CARDIAC Hx Cardiac Disorders: Yes Other/Comment: CT shows pericardial effusion - PULMONARY Hx Respiratory Disorders: Yes Hx Bronchitis: Yes - NEUROLOGICAL Hx Neurological Disorder: No - HEENT Hx HEENT Problems: No - RENAL Hx Chronic Kidney Disease: No - ENDOCRINE/METABOLIC Hx Endocrine Disorders: No - HEMATOLOGICAL/ONCOLOGICAL Hx Blood Disorders: No - INTEGUMENTARY Hx Dermatological Problems: No - MUSCULOSKELETAL/RHEUMATOLOGICAL Hx Musculoskeletal Disorders: No Hx Falls: No - GASTROINTESTINAL Hx Gastrointestinal Disorders: Yes Hx Gastritis: Yes - GENITOURINARY/GYNECOLOGICAL Hx Genitourinary Disorders: No - PSYCHIATRIC Hx Psychophysiologic Disorder: No Hx Substance Use: No - SURGICAL HISTORY Hx Surgeries: No - ANESTHESIA Hx Anesthesia: No Hx Anesthesia Reactions: No Hx Malignant Hyperthermia: No Has any member of the family had a problem w/ anesthesia?: No Meds Allergies/Adverse Reactions: Allergies Allergy/AdvReac Type Severity Reaction Status Date / Time No Known Allergies Allergy Verified 08/12/18 10:30 - Medications Medications: Current Medications Acetaminophen (Tylenol 325mg Tab) 650 mg PO Q6 PRN PRN Reason: Fever >100.4 F or Pain Sodium Chloride (Sodium Chloride 0.9%) 1,000 mls @ 1,000 mls/hr IV .Q1H [facility] Stop: 08/12/18 17:04 Vancomycin/Sodium Chloride (Vancomycin 1 Gm/Ns 200 Ml) 1 gm in 200 mls @ 133 mls/hr IVPB Q24H [facility]; Protocol Stop: 08/17/18 16:01 Meropenem 1,000 mg/ Sodium (Chloride) 100 mls @ 100 mls/hr IVPB Q8H [facility]; Protocol Lactobacillus Acidophilus (Bacid Acidophilus) 1 cap PO BID [facility] Pantoprazole Sodium (Protonix Ec Tab) 20 mg PO DAILY [facility] Tamsulosin HCl (Flomax) 0.4 mg PO DAILY [facility] Stop: 08/16/18 10:01 Physical Exam - Constitutional Appears: Non-toxic, No Acute Distress - Head Exam Head Exam: ATRAUMATIC, NORMAL INSPECTION, NORMOCEPHALIC - Eye Exam Eye Exam: EOMI, Normal appearance, PERRL - ENT Exam ENT Exam: Mucous Membranes Moist - Neck Exam Neck exam: Positive for: Normal Inspection - Respiratory Exam Respiratory Exam: Clear to Auscultation Bilateral, NORMAL BREATHING PATTERN. absent: Respiratory Distress - Cardiovascular Exam Cardiovascular Exam: Tachycardia, REGULAR RHYTHM, +S1, +S2 - GI/Abdominal Exam GI & Abdominal Exam: Normal Bowel Sounds, Soft, Tenderness (mild). absent: Distended, Guarding, Rebound, Rigid - Rectal Exam Rectal Exam: Deferred - Back Exam Back exam: NORMAL INSPECTION. absent: CVA tenderness (L), CVA tenderness (R) - Neurological Exam Neurological exam: Alert, CN II-XII Intact, Oriented x3 - Psychiatric Exam Psychiatric exam: Normal Affect, Normal Mood - Skin Skin Exam: Dry, Intact, Normal Color, Warm Results - Vital Signs Recent Vital Signs: Last Vital Signs Temp 102.1 F H 08/12/18 16:21 Pulse 101 H 08/12/18 16:31 Resp 21 08/12/18 16:31 BP 95/59 L 08/12/18 14:05 Pulse Ox 96 08/12/18 16:31 - Labs Result Diagrams: 08/12/18 11:05 08/12/18 11:05 Labs: Laboratory Results - last 24 hr 08/12/18 08/12/18 08/12/18 11:05 11:05 11:05 WBC 16.6 H D RBC 4.48 Hgb 14.2 Hct 41.1 MCV 91.6 MCH 31.8 H MCHC 34.7 RDW 13.8 Plt Count 136 MPV 10.1 Neut % (Auto) 89.8 H Lymph % (Auto) 4.5 L [place] % (Auto) 5.5 Eos % (Auto) 0.0 Baso % (Auto) 0.2 Neut # (Auto) 15.0 H Lymph # (Auto) 0.7 L [place] # (Auto) 0.9 H Eos # (Auto) 0.0 Baso # (Auto) 0.0 Neutrophils % (Manual) 79 H Band Neutrophils % 12 H* Lymphocytes % (Manual) 4 L Reactive Lymphs % 2 H Monocytes % (Manual) 3 Platelet Estimate Normal RBC Morphology Normal pO2 VBG pH VBG pCO2 VBG HCO3 VBG Total CO2 VBG O2 Sat (Calc) VBG Base Excess VBG Potassium Glucose Lactate Sodium 133 Potassium 3.9 Chloride 103 Carbon Dioxide 21 L Anion Gap 13 BUN 17 Creatinine 1.3 Est GFR ( Amer) > 60 Est GFR (Non-Af Amer) 54 Random Glucose 121 H Lactic Acid Calcium 8.7 Total Bilirubin 0.9 AST 24 ALT 21 D Alkaline Phosphatase 102 Total Protein 6.6 Albumin 3.4 L Globulin 3.2 Albumin/Globulin Ratio 1.1 Lipase 17 L Venous Blood Potassium Urine Color [place] Urine Clarity Hazy Urine pH 5.0 Ur Specific [place] 1.018 Urine Protein 1+ H Urine Glucose (UA) Normal Urine Ketones Negative Urine Blood 3+ H Urine Nitrate Negative Urine Bilirubin Negative Urine Urobilinogen Normal Ur Leukocyte Esterase 3+ H Urine WBC (Auto) 609 H Urine RBC (Auto) 193 H Urine WBC Clumps (Auto) Mod H Ur Squamous Epith Cells 2 Urine Bacteria Occ H 08/12/18 08/12/18 11:14 15:15 WBC RBC Hgb Hct MCV MCH MCHC RDW Plt Count MPV Neut % (Auto) Lymph % (Auto) [place] % (Auto) Eos % (Auto) Baso % (Auto) Neut # (Auto) Lymph # (Auto) [place] # (Auto) Eos # (Auto) Baso # (Auto) Neutrophils % (Manual) Band Neutrophils % Lymphocytes % (Manual) Reactive Lymphs % Monocytes % (Manual) Platelet Estimate RBC Morphology pO2 49 VBG pH 7.45 H VBG pCO2 31 L VBG HCO3 23.4 VBG Total CO2 22.5 VBG O2 Sat (Calc) 89.8 H VBG Base Excess -1.6 L VBG Potassium 3.7 Glucose 116 H Lactate 1.5 Sodium 133.0 Potassium Chloride 101.0 Carbon Dioxide Anion Gap BUN Creatinine Est GFR ( Amer) Est GFR (Non-Af Amer) Random Glucose Lactic Acid 1.8 Calcium Total Bilirubin AST ALT Alkaline Phosphatase Total Protein Albumin Globulin Albumin/Globulin Ratio Lipase Venous Blood Potassium 3.7 Urine Color Urine Clarity Urine pH Ur Specific [place] Urine Protein Urine Glucose (UA) Urine Ketones Urine Blood Urine Nitrate Urine Bilirubin Urine Urobilinogen Ur Leukocyte Esterase Urine WBC (Auto) Urine RBC (Auto) Urine WBC Clumps (Auto) Ur Squamous Epith Cells Urine Bacteria Assessment & Plan - Assessment and Plan (Free Text) Assessment: Patient is a 77 yo male without significant PMH who presented with fever and abdominal pain. Patient was admitted for pyelonephritis. RESEARCH METHODOLOGIST was called for hypotension. Plan: Neuro: - No acute issues - Monitor mental status CV: Pericardial effusion - CT A/P: small pericardial effusion - Echo pending - Cardiology consulted (Eulalio) Pulm: - Maintain spO2>92%- NC PRN GI: - NPO Renal: Pyelonephritis- suspect urolithiasis - CT A/P: no urolithiasis or evidence of recently passed calculus, bladder wall thickening - Flomax 0.4 mg PO daily x5 days - Strain urine for calculi Endo: - Maintain euglycemia Heme: - Monitor H&H ID: Septic shock - RESEARCH METHODOLOGIST for hypotension - Tmax 103 - Tylenol 650 mg PO Q6H PRN - LA wnl (1.8) - Procal pending - Leukocytosis (16.6) - UA: LE 3+, nitrate neg, blood 3+, 609 WBC, occ cady - Blood, urine Cx pending - NS 2.5 L boluses - NS @ 100 mL/hr - Meropenem 1 g IV Q6H - Vancomycin 1 g IV Q24H - F/u trough - Florastor 250 mg PO BID - ID consulted (El) Ppx: VTE: SCDs, heparin 5000 units SC Q8H GI: PTX 20 mg PO daily Code status: full code ECHO: Small pleural effusion Normal EFPatiet Objective - Vital Signs/Intake and Output Vital Signs (last 24 hours): Temp Pulse Resp BP Pulse Ox 101 F H 68 21 98/56 L 99 08/13/18 15:00 08/13/18 20:05 08/13/18 20:05 08/13/18 20:05 08/13/18 20:05 Intake and Output: 08/13/18 08/14/18 18:59 05:59 Intake Total 2150 300 Output Total 351 50 Balance 1799 250 - Medications Medications: Current Medications Acetaminophen (Tylenol 325mg Tab) 650 mg PO Q6 PRN PRN Reason: Fever >100.4 F or Pain Last Admin: 08/13/18 13:19 Dose: 650 mg Acetylcysteine (Acetylcysteine 20%) 3 ml PO Q12H [facility] Stop: 08/14/18 22:16 Last Admin: 08/13/18 21:21 Dose: 3 ml Albumin Human (Albumin Human 25% (12.5 Gm/50 Ml)) 25 gm IV Q8 [facility] Stop: 08/14/18 22:53 Last Admin: 08/13/18 21:10 Dose: 25 gm Heparin Sodium (Porcine) (Heparin) 5,000 units SC Q8 [facility] Last Admin: 08/13/18 21:10 Dose: 5,000 units Sodium Bicarbonate 150 meq/ (Dextrose) 1,150 mls @ 75 mls/hr IV .[id number] [facility] Stop: 08/13/18 23:49 Last Admin: 08/13/18 12:18 Dose: 75 mls/hr Meropenem 1 gm/ Sodium (Chloride) 100 mls @ 100 mls/hr IVPB Q12 [facility]; Protocol Last Admin: 08/13/18 21:09 Dose: 100 mls/hr Sodium Chloride (Sodium Chloride 0.9%) 1,000 mls @ 75 mls/hr IV .[id number] [facility] Last Admin: 08/13/18 10:15 Dose: 75 mls/hr Lactobacillus Acidophilus (Bacid Acidophilus) 1 cap PO BID [facility] Last Admin: 08/13/18 18:13 Dose: 1 cap Midodrine (Proamatine) 5 mg PO TID [facility] Stop: 08/14/18 22:56 Last Admin: 08/13/18 18:13 Dose: 5 mg Pantoprazole Sodium (Protonix Ec Tab) 20 mg PO DAILY [facility] Last Admin: 08/13/18 11:05 Dose: 20 mg Tamsulosin HCl (Flomax) 0.4 mg PO DAILY [facility] Stop: 08/16/18 10:01 Last Admin: 08/13/18 11:06 Dose: 0.4 mg - Labs Labs: 08/13/18 06:59 08/13/18 05:48
--- NOTE | 2018-08-14 01:06 | PN ---
DATE: 08/13/2018 SUBJECTIVE: The patient is in the ICU. He denies any chills now. He is awake. He says "I ultimately was making urine" and he said he was trying. He still complained of some dysuria. His creatinine went up. He has been hypotensive yesterday and in a shock state. His cultures are positive, I am told gram-negatives in the blood and the urine. PHYSICAL EXAMINATION VITAL SIGNS: His last temperature recorded was 101, this was at 02:19 today; blood pressure was 88/45, respirations 25, heart rate of 76. GENERAL: He is alert and awake. Denies any cough or cold. Does still complain of right abdominal pain going to the back. HEENT: Head is atraumatic and normocephalic. NECK: Supple. JVP is flat. LUNGS: Clear. HEART: S1 and S2 regular. ABDOMEN: Soft, nontender. No guarding, no rigidity present. EXTREMITIES: No edema. I did give him one dose of gentamicin yesterday, but creatinine has gone up, so we have discontinued it. He is on Merrem 1 g every 12 hours; but if the creatinine remains high, we will decrease the dose as he does need antibiotic broad spectrum as he has blood cultures and urine culture positive. He is complaining of pain in the right upper abdomen. Again, they did a CT today, abdominal and pelvic CT, without p.o. or oral contrast, and I want to see why they do it again, which shows no interval obstructive uropathy, bilateral renal cysts reiterated greater on the right than the left. No intrarenal calculi identified. No acute abdominal or pelvic findings. Lack of contrast limits interpretation. Suboptimal distention of urinary bladder with mural thickening evaluated posteriorly reflecting cystitis additional findings are as described. At this time, to me, it looks like he has cystitis as well as probably right pyelonephritis; but with gram-negative septicemia and UTI, he does not even have a Strauss catheter, maybe the Strauss catheter will help. At this point, he needs a urology eval also since he has gram-negative secondary to UTI and a Strauss catheter for the time being may be helpful to assess input and output. He needs IV fluids aggressively as his tongue is still dry. Hopefully, his creatinine will get better with treatment of the infection, also to check the echocardiogram to rule out any vegetation because yesterday they read about pericardial effusion. We will follow. Rajesh Gallegos MD
[2018-08-14] MEDS: Sodium Chloride 0.9% 1,000 ML IV SCH ×2 (02:00→15:04)
[2018-08-14] MEDS: Albumin Human 25% (12.5 gm/50 ml) IV SCH (05:08)
[2018-08-14 06:31] LABS: BASO % 0.2 % (0.0-2.0); EOS % 0.2 % (0.0-4.0); HEMOGLOBIN 11.5 g/dL (12.0-18.0); LYMPH % 17.4 % (20.0-40.0); MEAN CELL VOLUME 92.6 fL (80.0-94.0); MEAN CORPUSCULAR HEMOGLOBIN 31.7 pg (27.0-31.0); MEAN CORPUSCULAR HGB CONC 34.2 g/dL (33.0-37.0); MEAN PLATELET VOLUME 9.9 fL (7.2-11.7); MONO # 0.4 K/uL (0.0-0.8); MONO % 6.5 % (0.0-10.0); NEUT # 4.5 K/uL (1.8-7.0); NEUT % 75.7 % (50.0-75.0); RBC 3.61 Mil/uL (4.40-5.90); RED CELL DISTRIBUTION WIDTH 14.1 % (11.5-14.5); WHITE BLOOD COUNT 5.9 K/uL (4.8-10.8)
[2018-08-14 06:52] LABS: ALB/GLOB RATIO 1.2 (1.0-2.1); ALT/SGPT 43 U/L (21-72); AST/SGOT 52 U/L (17-59); BLOOD UREA NITROGEN 13 mg/dL (9-20); CALCIUM 7.1 mg/dl (8.6-10.4); GFR NON-AFRICAN AMERICAN > 60
[2018-08-14] MEDS ORDERED: Potassium Phosphate 15 MMOLE in Sodium Chloride 0.9% 250 ML IVPB ONE (08:29)
[2018-08-14] MEDS: Potassium & Sodium Phosphate PO SCH ×2 (09:52→17:57)
[2018-08-14] MEDS: Lactobacillus Acidophilus 500 MU Cap PO SCH ×2 (09:53→18:14)
[2018-08-14] MEDS: Acetylcysteine 20% Inhal Soln (4ml) PO SCH (09:54)
[2018-08-14] MEDS: Pantoprazole 20 mg EC Tab PO SCH (09:54)
[2018-08-14] MEDS: Meropenem 1 GM in Sodium Chloride 0.9% 100 ML IVPB SCH ×2 (09:55→21:32)
--- NOTE | 2018-08-14 11:41 | CP.PCM.PN ---
Subjective - Date & Time of Evaluation Date of Evaluation: 08/14/18 Time of Evaluation: 11:39 - Subjective Subjective: oob feels beter less pain bp holding Objective - Vital Signs/Intake and Output Vital Signs (last 24 hours): Temp Pulse Resp BP Pulse Ox 98.2 F 56 L 24 121/65 98 08/14/18 03:00 08/14/18 10:05 08/14/18 10:05 08/14/18 10:05 08/14/18 10:05 Intake and Output: 08/14/18 08/14/18 06:59 18:59 Intake Total 442.5 Output Total 150 Balance 292.5 - Medications Medications: Current Medications Acetaminophen (Tylenol 325mg Tab) 650 mg PO Q6 PRN PRN Reason: Fever >100.4 F or Pain Last Admin: 08/13/18 13:19 Dose: 650 mg Acetylcysteine (Acetylcysteine 20%) 3 ml PO Q12H [facility] Stop: 08/14/18 22:16 Last Admin: 08/14/18 09:54 Dose: 3 ml Heparin Sodium (Porcine) (Heparin) 5,000 units SC Q8 [facility] Last Admin: 08/14/18 05:08 Dose: 5,000 units Meropenem 1 gm/ Sodium (Chloride) 100 mls @ 100 mls/hr IVPB Q12 [facility]; Protocol Last Admin: 08/14/18 09:55 Dose: 100 mls/hr Sodium Chloride (Sodium Chloride 0.9%) 1,000 mls @ 75 mls/hr IV .[id number] [facility] Last Admin: 08/14/18 02:00 Dose: 75 mls/hr Potassium Phosphate 15 mmole/ (Sodium Chloride) 255 mls @ 42.5 mls/hr IVPB ONCE ONE Stop: 08/14/18 14:28 Last Admin: 08/14/18 09:54 Dose: 42.5 mls/hr Potassium Phosphate 15 mmole/ (Dextrose) 255 mls @ 42.5 mls/hr IVPB ONCE ONE Stop: 08/14/18 20:59 Lactobacillus Acidophilus (Bacid Acidophilus) 1 cap PO BID [facility] Last Admin: 08/14/18 09:53 Dose: 1 cap Midodrine (Proamatine) 5 mg PO TID [facility] Stop: 08/14/18 22:56 Last Admin: 08/14/18 09:52 Dose: 5 mg Pantoprazole Sodium (Protonix Ec Tab) 20 mg PO DAILY [facility] Last Admin: 08/14/18 09:54 Dose: 20 mg Potassium Phos/Sodium Phos (Neutra-Phos) 1 pkt PO BID [facility] Stop: 08/15/18 18:01 Last Admin: 08/14/18 09:52 Dose: 1 pkt Tamsulosin HCl (Flomax) 0.4 mg PO DAILY [facility] Stop: 08/16/18 10:01 Last Admin: 08/14/18 09:52 Dose: 0.4 mg - Labs Labs: 08/14/18 06:22 08/14/18 06:22 - Constitutional Appears: Non-toxic - Head Exam Head Exam: NORMAL INSPECTION - Eye Exam Eye Exam: Normal appearance Pupil Exam: NORMAL ACCOMODATION - ENT Exam ENT Exam: Normal Exam - Neck Exam Neck Exam: Normal Inspection - Respiratory Exam Respiratory Exam: NORMAL BREATHING PATTERN - Cardiovascular Exam Cardiovascular Exam: REGULAR RHYTHM - GI/Abdominal Exam GI & Abdominal Exam: Normal Bowel Sounds - Exam Exam: NORMAL INSPECTION - Extremities Exam Extremities Exam: Normal Inspection - Back Exam Back Exam: NORMAL INSPECTION - Neurological Exam Neurological Exam: Alert, Oriented x3 - Psychiatric Exam Psychiatric exam: Normal Affect - Skin Skin Exam: Normal Color Assessment and Plan - Assessment and Plan (Free Text) Assessment: ac pyelonehritis s/p septic shock improving Plan: cont as per orders
[2018-08-14] MEDS ORDERED: Potassium Phosphate 15 MMOLE in Dextrose 5% In Water 250 ML IVPB ONE (15:00)
--- NOTE | 2018-08-14 20:29 | CP.PCM.PN ---
Subjective - Date & Time of Evaluation Date of Evaluation: 08/14/18 Time of Evaluation: 17:40 - Subjective Subjective: Patient denies chest pain and dyspnea s/p Septick shock/Pyelonephritis improving Objective - Vital Signs/Intake and Output Vital Signs (last 24 hours): Temp Pulse Resp BP Pulse Ox 98.6 F 70 20 121/73 96 08/14/18 19:35 08/14/18 16:04 08/14/18 16:04 08/14/18 16:04 08/14/18 16:04 Intake and Output: 08/14/18 08/15/18 18:59 06:59 Intake Total 1087.5 Output Total 151 Balance 936.5 - Medications Medications: Current Medications Acetaminophen (Tylenol 325mg Tab) 650 mg PO Q6 PRN PRN Reason: Fever >100.4 F or Pain Last Admin: 08/14/18 17:56 Dose: 650 mg Acetylcysteine (Acetylcysteine 20%) 3 ml PO Q12H [facility] Stop: 08/14/18 22:16 Last Admin: 08/14/18 09:54 Dose: 3 ml Heparin Sodium (Porcine) (Heparin) 5,000 units SC Q8 [facility] Last Admin: 08/14/18 13:16 Dose: 5,000 units Meropenem 1 gm/ Sodium (Chloride) 100 mls @ 100 mls/hr IVPB Q12 [facility]; Protocol Last Admin: 08/14/18 09:55 Dose: 100 mls/hr Sodium Chloride (Sodium Chloride 0.9%) 1,000 mls @ 75 mls/hr IV .[id number] [facility] Last Admin: 08/14/18 15:04 Dose: 75 mls/hr Potassium Phosphate 15 mmole/ (Dextrose) 255 mls @ 42.5 mls/hr IVPB ONCE ONE Stop: 08/14/18 20:59 Last Admin: 08/14/18 15:05 Dose: 42.5 mls/hr Lactobacillus Acidophilus (Bacid Acidophilus) 1 cap PO BID [facility] Last Admin: 08/14/18 18:14 Dose: 1 cap Midodrine (Proamatine) 5 mg PO TID [facility] Stop: 08/14/18 22:56 Last Admin: 08/14/18 18:14 Dose: 5 mg Pantoprazole Sodium (Protonix Ec Tab) 20 mg PO DAILY [facility] Last Admin: 08/14/18 09:54 Dose: 20 mg Potassium Phos/Sodium Phos (Neutra-Phos) 1 pkt PO BID [facility] Stop: 08/15/18 18:01 Last Admin: 08/14/18 17:57 Dose: 1 pkt Tamsulosin HCl (Flomax) 0.4 mg PO DAILY [facility] Stop: 08/16/18 10:01 Last Admin: 08/14/18 09:52 Dose: 0.4 mg - Labs Labs: 08/14/18 06:22 08/14/18 06:22
--- NOTE | 2018-08-14 21:56 | CP.PCM.CON ---
History of Present Illness - History of Present Illness History of Present Illness: renal consult note hpi: patient admitted with acute abdominal pain, he has pmh of cad, ?DM, htn,no prior renal disease. [facility] he had [employer] INTERVIEWER following which he was transferred to icu, noted to have urosepsis and ashlie. no urinary complaints complete ros is negative meds reviewed labs and imaging reviewed vitals reviewed bp low heent normal o pmoist no jvd [id number] present no resp distress abd soft nd no edema ao times 3 normal affect A&P: ASHLIE/urosepsis/UTI ashlie likely prerenal from sepsis syndrome from uti , cr is improving and non oliguric monitor I&Os closely urine studies reviewed lytes reviewed abx dose for reduced gfr agree with fluids Past Patient History - Infectious Disease Hx of Infectious Diseases: None - Tetanus Immunizations Tetanus Immunization: Unknown - Past Medical History & Family History Past Medical History?: Yes Past Family History: Reviewed and not pertinent - Past Social History Smoking Status: Former Smoker Chewing Tobacco Use: No Cigar Use: No Alcohol: None Drugs: Denies - CARDIAC Hx Cardiac Disorders: Yes Other/Comment: CT shows pericardial effusion - PULMONARY Hx Respiratory Disorders: Yes Hx Bronchitis: Yes - NEUROLOGICAL Hx Neurological Disorder: No - HEENT Hx HEENT Problems: No - RENAL Hx Chronic Kidney Disease: No - ENDOCRINE/METABOLIC Hx Endocrine Disorders: No - HEMATOLOGICAL/ONCOLOGICAL Hx Blood Disorders: No - INTEGUMENTARY Hx Dermatological Problems: No - MUSCULOSKELETAL/RHEUMATOLOGICAL Hx Musculoskeletal Disorders: No Hx Falls: No - GASTROINTESTINAL Hx Gastrointestinal Disorders: Yes Hx Gastritis: Yes - GENITOURINARY/GYNECOLOGICAL Hx Genitourinary Disorders: No - PSYCHIATRIC Hx Psychophysiologic Disorder: No Hx Substance Use: No - SURGICAL HISTORY Hx Surgeries: No - ANESTHESIA Hx Anesthesia: No Hx Anesthesia Reactions: No Hx Malignant Hyperthermia: No Has any member of the family had a problem w/ anesthesia?: No Meds Allergies/Adverse Reactions: Allergies Allergy/AdvReac Type Severity Reaction Status Date / Time No Known Allergies Allergy Verified 08/12/18 10:30 - Medications Medications: Current Medications Acetaminophen (Tylenol 325mg Tab) 650 mg PO Q6 PRN PRN Reason: Fever >100.4 F or Pain Last Admin: 08/14/18 17:56 Dose: 650 mg Acetylcysteine (Acetylcysteine 20%) 3 ml PO Q12H [facility]IRI Stop: 08/14/18 22:16 Last Admin: 08/14/18 09:54 Dose: 3 ml Heparin Sodium (Porcine) (Heparin) 5,000 units SC Q8 [facility] Last Admin: 08/14/18 21:32 Dose: 5,000 units Meropenem 1 gm/ Sodium (Chloride) 100 mls @ 100 mls/hr IVPB Q12 [facility]IRI; Protocol Last Admin: 08/14/18 21:32 Dose: 100 mls/hr Sodium Chloride (Sodium Chloride 0.9%) 1,000 mls @ 75 mls/hr IV .[id number] [facility] Last Admin: 08/14/18 15:04 Dose: 75 mls/hr Lactobacillus Acidophilus (Bacid Acidophilus) 1 cap PO BID [facility] Last Admin: 08/14/18 18:14 Dose: 1 cap Midodrine (Proamatine) 5 mg PO TID [facility] Stop: 08/14/18 22:56 Last Admin: 08/14/18 18:14 Dose: 5 mg Pantoprazole Sodium (Protonix Ec Tab) 20 mg PO DAILY [facility] Last Admin: 08/14/18 09:54 Dose: 20 mg Potassium Phos/Sodium Phos (Neutra-Phos) 1 pkt PO BID [facility] Stop: 08/15/18 18:01 Last Admin: 08/14/18 17:57 Dose: 1 pkt Tamsulosin HCl (Flomax) 0.4 mg PO DAILY [facility] Stop: 08/16/18 10:01 Last Admin: 08/14/18 09:52 Dose: 0.4 mg Results - Vital Signs Recent Vital Signs: Last Vital Signs Temp 98.6 F 08/14/18 19:35 Pulse 70 08/14/18 16:04 Resp 20 08/14/18 16:04 BP 121/73 08/14/18 16:04 Pulse Ox 96 08/14/18 16:04 - Labs Result Diagrams: 08/14/18 06:22 08/14/18 06:22 Labs: Laboratory Results - last 24 hr 08/14/18 08/14/18 06:22 06:22 WBC 5.9 RBC 3.61 L Hgb 11.5 L Hct 33.5 L MCV 92.6 MCH 31.7 H MCHC 34.2 RDW 14.1 Plt Count 73 L D MPV 9.9 Neut % (Auto) 75.7 H Lymph % (Auto) 17.4 L [place] % (Auto) 6.5 Eos % (Auto) 0.2 Baso % (Auto) 0.2 Neut # (Auto) 4.5 Lymph # (Auto) 1.0 [place] # (Auto) 0.4 Eos # (Auto) 0.0 Baso # (Auto) 0.0 Sodium 137 Potassium 3.7 Chloride 110 H Carbon Dioxide 21 L Anion Gap 10 BUN 13 Creatinine 1.0 Est GFR ( Amer) > 60 Est GFR (Non-Af Amer) > 60 Random Glucose 96 Calcium 7.1 L Phosphorus 1.1 L Magnesium 2.1 Total Bilirubin 0.4 AST 52 ALT 43 Alkaline Phosphatase 96 Total Protein 5.4 L Albumin 3.0 L D Globulin 2.5 Albumin/Globulin Ratio 1.2
[2018-08-15] MEDS: Sodium Chloride 0.9% 1,000 ML IV SCH ×3 (04:37→17:05)
[2018-08-15 06:54] LABS: ABG ALLEN TEST POS; ARTERIAL BLOOD GAS HCO3 15.8 mmol/L (21-28); ARTERIAL BLOOD GAS O2 SAT 99.2 % (95-98); ARTERIAL BLOOD GAS PCO2 47 mm/Hg (35-45); ARTERIAL BLOOD GAS PH 7.16 (7.35-7.45); ARTERIAL BLOOD GAS PO2 163 mm/Hg (80-100); ARTERIAL BLOOD GAS TCO2 18.2 mmol/L (22-28)
--- NOTE | 2018-08-15 07:15 | PCM.RRT ---
<ZoësamuelAce - Last Filed: 08/15/18 07:16> FRONT END UI DEVELOPER Nurses Assessment - Situation Date: 08/12/18 Time FRONT END UI DEVELOPER was called: 14:53 FRONT END UI DEVELOPER Location:: Med/Oncology Room Number: 357A FRONT END UI DEVELOPER Reason for Call: Respiratory Distress FRONT END UI DEVELOPER Called By: RN - IV IV Inserted during FRONT END UI DEVELOPER?: No IV Fluids Initiated During FRONT END UI DEVELOPER?: YES - Respiratory FRONT END UI DEVELOPER Delivery Method: Non Rebreather @% Oxygen Flow Rate: 2 Received Nebulizer Treatments: No Was the Patient Ventilated with Bag/Mask 100% O2?: No Secretions Suctioned?: No Was the Patient Intubated?: No Was the Patient Placed on a Ventilator?: No - Diagnostic Test Ordered EKG: No Chest X-Ray: No CT Scan: No Other Diagnostic Test Ordered: ECHO - Stat Labs Ordered FRONT END UI DEVELOPER Stat Labs Ordered: CBC, LACTIC ACID, BLOOD C&S X2, ABG FRONT END UI DEVELOPER Other Labs Ordered: procalcitonin CPR started during FRONT END UI DEVELOPER?: No - Vital Signs Vital Signs: Rapid Response Vital Sign Blood Pressure 79/41 Pulse Rate 100 Respiratory Rate 21 Temperature 103.0 F Oxygen Saturation 93 - [place] Coma Scale Coma Scale Eye Opening: Spontaneous Coma Scale Motor: Obeys Commands Movement Coma Scale Verbal: Oriented Coma Scale Total: 15 - Sepsis Screen Part 1 Sepsis Screen Part 1: Temperature over 100.6F - Sepsis Screen Part 2 Sepsis Screen Part 2: Bands over 10%, WBC over 12,000 - Vital Signs at end of FRONT END UI DEVELOPER Vital Signs at end of FRONT END UI DEVELOPER: Rapid Response End Vital Sign Blood Pressure 95/51 Pulse Rate 101 Respiratory Rate 21 Temperature 102.9 F O2 Sat by Pulse Oximetry 96 - Recommendations 5) FRONT END UI DEVELOPER Level of Care Recommendations: Transfer to ICU Notifications: Attending Physician I.Reason for FRONT END UI DEVELOPER - A) Acute Change in Patient: (Select all that apply): Acute change in SpO2 less - Neurological Status (Select all that apply): Alert, Responsive, Oriented, Follows Commands - Respiratory Oxygen Delivery Method: Non Rebreather @% Oxygen Flow Rate: 2 - Constitutional Appears: In Acute Distress. absent: Toxic - Head Head Exam: ATRAUMATIC, NORMAL INSPECTION - Eyes Eye Exam: EOMI, Normal appearance - Respiratory Exam Respiratory Exam: Wheezes (Apical wheezes). absent: Rales - Cardiovascular Exam Cardiovascular Exam: Tachycardia, RRR, +S1, +S2 - GI/Abdominal Exam GI & Abdominal Exam: absent: Tenderness Additional comments: Firm abdomen - Neurological Exam Neurological Exam: Alert, Awake, Oriented x3 - Extremities Exam Extremities Exam: Normal Inspection. absent: Pedal Edema, Tenderness Plan - Assessment of Findings&Treatment Plan FRONT END UI DEVELOPER was called for respiratory distress. On arrival, patient was found to be in acute respiratory distress - tachypneic with use of accessory muscles. Patient was placed on nonrebreather and labs/studies were ordered including STAT chest x-ray, ABG, repeat CBC, CMP, blood and urine cultures. Chest x-ray showed bilat eral pleural effusions. ABG was positive for lactate of 6.0 and pH 7.16, Co2 47. On initial presentation, patient was saturating at 86% on room air. Patient was tachycardic in 140s, blood pressure was elevated at 180s/70s. By the end of the rapid, patient was saturating at 96% on room air, blood pressure was 120/58. Patient remained tachypneic at 36 respirations/min. Patient has been receiving treatment for pyelonephritis, continues to have dysuria. Additionally, stat echo and CT chest/abdomen/pelvis w/o constrast were ordered. ICU consult was placed- ICU admission was denied, patient will be moved to telemetry to monitor for severe sepsis. <Marciano Tejeda P - Last Filed: 08/15/18 08:16> FRONT END UI DEVELOPER Nurses Assessment - Vital Signs Vital Signs: Rapid Response Vital Sign Blood Pressure 79/41 Pulse Rate 100 Respiratory Rate 21 Temperature 103.0 F Oxygen Saturation 93 - Vital Signs at end of FRONT END UI DEVELOPER Vital Signs at end of FRONT END UI DEVELOPER: Rapid Response End Vital Sign Blood Pressure 95/51 Pulse Rate 101 Respiratory Rate 21 Temperature 102.9 F O2 Sat by Pulse Oximetry 96 Attending/Attestation - Attestation I have personally seen and examined this patient.: Yes I have fully participated in the care of the patient.: Yes I have reviewed all pertinent clinical information, including history, physical exam and plan: Yes Notes (Text): 08/15/18 08:11 Severe rigors suspected from bacterimia with inefficient breathing at the peak of symptoms, which gradually improved on the supportive treatment, lactic acidosis in presence of higher bp suspected from increased work and metabolism during rigors. Patient has gram negative bacterimia on meropenium, clear source is not known, uti was suspected ? has secondary focci. Requested ICU eval [place] CT Repeat echo Bipap as supportive care Add vancomycin f/u on lab work with including, phosphorus, blood cultures, repeat lactate which was low Primary team will be notified See orders for detail.
[2018-08-15 08:27] LABS: BASO % 0.3 % (0.0-2.0); EOS % 0.3 % (0.0-4.0); HEMOGLOBIN 11.4 g/dL (12.0-18.0); LYMPH # 0.4 K/uL (1.0-4.3); LYMPH % 6.5 % (20.0-40.0); MEAN CELL VOLUME 91.8 fL (80.0-94.0); MEAN CORPUSCULAR HEMOGLOBIN 31.9 pg (27.0-31.0); MEAN CORPUSCULAR HGB CONC 34.7 g/dL (33.0-37.0); MEAN PLATELET VOLUME 10.4 fL (7.2-11.7); MONO # 0.4 K/uL (0.0-0.8); MONO % 5.4 % (0.0-10.0); NEUT # 5.8 K/uL (1.8-7.0); NEUT % 87.5 % (50.0-75.0); NRBC % 0.1 % (0.0-2.0); PLATELET COUNT 80 K/uL (130-400); RBC 3.57 Mil/uL (4.40-5.90); RED CELL DISTRIBUTION WIDTH 14.3 % (11.5-14.5); WHITE BLOOD COUNT 6.7 K/uL (4.8-10.8)
[2018-08-15 08:56] LABS: ALB/GLOB RATIO 1.1 (1.0-2.1); ALBUMIN 3.1 g/dL (3.5-5.0); ALT/SGPT 59 U/L (21-72); AST/SGOT 63 U/L (17-59); BLOOD UREA NITROGEN 15 mg/dL (9-20); CALCIUM 7.6 mg/dl (8.6-10.4); GFR NON-AFRICAN AMERICAN > 60
[2018-08-15] MEDS: Vancomycin 1 gm/NS 200 ml 1 GM/200 ML BAG IVPB SCH ×2 (09:01→19:51)
[2018-08-15 09:12] LABS: BANDS 5 % (0-2); LYMPHOCYTE 5 % (20-40); MONOCYTE 4 % (0-10); NEUTROPHIL 86 % (50-75); TOTAL CELLS COUNTED 100
[2018-08-15 09:13] LABS: PLATELET ESTIMATE DECREASED (NORMAL)
[2018-08-15 09:31] LABS: B-TYPE NATRIURETIC PEPTIDE 4120 pg/mL (0-900)
--- NOTE | 2018-08-15 10:39 | CT ---
Date of service: 08/15/2018 PROCEDURE: CT Chest, Abdomen and Pelvis without intravenous contrast HISTORY: Sepsis, bilateral pleural effusions, pyelo COMPARISON: None comparison made with prior CT scans of the abdomen pelvis dated 08/13/2018 and 08/12/2018. TECHNIQUE: Radiation dose: Total exam DLP = 1083.95 mGy-cm. This CT exam was performed using one or more of the following dose reduction techniques: Automated exposure control, adjustment of the mA and/or kV according to patient size, and/or use of iterative reconstruction technique. FINDINGS: Note the examination is somewhat limited due to motion artifact which partially obscures detail in the lower thorax and upper-mid abdomen. CT CHEST WITHOUT CONTRAST: LUNGS: Mild pulmonary venous congestive changes. Centrilobular emphysematous changes upper lobe predominance. Small approximately 3.9 mm nodular density seen along the lateral pleural surface right lower lobe. MEDIASTINUM: Heart is mildly enlarged. Re demonstrated is a small to medium-sized pericardial effusion again noted. Ascending thoracic aorta measures approximately 3.1 cm and descending thoracic aorta measures approximately 2.1 cm. Pulmonary trunk measures approximately 2.45 cm. Trach is midline and patent with no large central endoluminal lesions. Small hiatal hernia. LYMPH NODES: Multiple small nonspecific mediastinal lymph nodes are present. Evaluation for hilar adenopathy is limited due to the lack of circulating intravenous contrast material. PLEURA: Moderately large bilateral effusions and mild bibasilar atelectasis. BONES: Mild multilevel degenerative spondylosis of the thoracic spine. There are no acute compression fractures no retropulsed fragments. OTHER FINDINGS: None. CT ABDOMEN AND PELVIS: LIVER: Re demonstrated is a complex appearing cystic structure inferior aspect right lobe liver unchanged from prior exam. Please refer to either CT scan 08/13/2018 or 08/12/2018 for additional details which have been described on both studies.. There is a smaller elliptical shaped low-attenuation lesion right lobe liver slightly more superiorly located. Few scattered calcified hepatic granulomata are present. GALLBLADDER AND BILE DUCTS: Gallbladder is incompletely distended which may in part account for thick-walled appearance. PANCREAS: Radius is atrophic and fatty replaced.. No obvious pancreatic masses or collections. SPLEEN: Spleen exhibits relatively normal size. Streak and beam hardening artifact partially obscure the upper portion of the spleen. Few scattered splenic granulomata are again noted as well. ADRENALS: No obvious adrenal lesions are seen. KIDNEYS AND URETERS: Bilateral renal cysts again noted unchanged. Minimal infiltration changes seen in the perinephric fat nonspecific.. No evidence of nephrolithiasis or hydronephrosis. VASCULATURE: Minimal aortic atherosclerotic calcification or mural plaque present. No aortic aneurysm. BOWEL: Evaluation of the bowel is limited due to the lack of oral contrast material as well as motion artifact. The stomach is collapsed. Visualized loops of small bowel exhibit normal contour and caliber. No evidence of acute mechanical small bowel obstruction. Fluid and air seen within the right colon. Most of the remaining colon is partially collapsed with small amount of stool in the sigmoid colon and rectum. APPENDIX: No evidence of acute appendicitis so far as can be seen. PERITONEUM: Unremarkable. No free fluid. No free air. Tiny fat containing umbilical hernia. Small bilateral fat containing inguinal hernias. LYMPH NODES: Unremarkable. No enlarged lymph nodes. BLADDER: Urinary bladder incompletely distended which in part accounts thick-walled appearance however muscular hypertrophy presumably contributes... Possibility of a cystitis not excluded. Correlation with urinalysis. REPRODUCTIVE: Prostate remains mildly enlarged. BONES: Multilevel degenerative spondylosis of the lumbar spine. No acute compression fractures. OTHER FINDINGS: Partially calcified atherosclerotic plaque is seen in the abdominal aorta and iliac arteries. IMPRESSION: Limited motion degraded study. Mild pulmonary venous congestive changes with moderately large bilateral effusions and mild bibasilar atelectasis. Centrilobular emphysematous changes upper lobe predominance. Small nodule right lung base. Re demonstrated is a small to medium-sized pericardial effusion. No change elliptical shaped cyst inferior aspect right lobe liver. Small low-attenuation focus right lobe liver slightly more superiorly located. Scattered calcified hepatic and splenic granulomata. Bilateral renal cysts again noted. Urinary bladder wall thickening likely due to incomplete distention and muscular hypertrophy however correlation with urinalysis recommended to exclude cystitis
--- NOTE | 2018-08-15 10:49 | RAD ---
Date of service: 08/15/2018 HISTORY: sob COMPARISON: Comparison made with prior chest radiograph 08/12/2018. FINDINGS: LUNGS: Pulmonary venous congestive changes with bilateral effusions and bibasilar atelectasis and/or infiltrates. PLEURA: No significant pleural effusion identified, no pneumothorax apparent. CARDIOVASCULAR: Minimal aortic atherosclerotic calcification present. Normal cardiac size. No pulmonary vascular congestion. OSSEOUS STRUCTURES: No significant abnormalities. VISUALIZED UPPER ABDOMEN: Normal. OTHER FINDINGS: None. IMPRESSION: Pulmonary venous congestive changes with bilateral effusions and bilateral atelectasis and/or infiltrates
--- NOTE | 2018-08-15 11:21 | CP.CCUPN ---
<Anh Quinteros - Last Filed: 08/15/18 13:18> CCU Subjective - Physician Review Events Since Last Encounter (Free Text): 08/15/18 11:18 VERTICAL [employer] B[employer] SAW OPERATOR was called this morning for respiratory distress- patient placed on BiPAP and transferred to ICU Subjective (Free Text): 08/15/18 11:19 Patient was seen and examined this morning. He is on NC, not in any respiratory distress. He states he feels well. He denies dysuria and hematuria. Critical Care Time Spent (in minutes): 35 CCU Objective - Vital Signs / Intake & Output Vital Signs (Last 4 hours): Vital Signs Temp Pulse Resp BP Pulse Ox 08/15/18 11:07 55 L 15 100/51 L 98 08/15/18 11:00 68 16 97 08/15/18 10:30 61 30 H 97 08/15/18 10:12 57 L 25 H 96 08/15/18 08:57 99 H 08/15/18 08:39 99.9 F H 08/15/18 08:21 99.9 F H 93 H 20 109/69 95 08/15/18 07:39 103 F H Intake and Output (Last 8hrs): Intake & Output 08/14/18 08/15/18 08/15/18 22:59 06:59 14:59 Intake Total 800 1145 Output Total 350 Balance 450 1145 Weight 155 lb 4.8 oz Intake: Intake, IV Amount 800 1025 Left Forearm 425 Right Forearm 200 Right Wrist 600 600 Oral 120 Output: Urine 350 Urine, Voided 350 Other: # Voids Urine, Voided 3 # Bowel Movements 1 1 - Physical Exam Head: Positive for: Atraumatic, Normocephalic Pupils: Positive for: PERRL Extroacular Muscles: Positive for: EOMI Conjunctiva: Positive for: Normal Mouth: Positive for: Moist Mucous Membranes Neck: Positive for: Normal Range of Motion Respiratory/Chest: Positive for: Clear to Auscultation. Negative for: Respiratory Distress Cardiovascular: Positive for: Regular Rate and Rhythm, Normal S1, S2, Bradycardic. Negative for: Murmurs Abdomen: Negative for: Tenderness, Distention, Peritoneal Signs Back: Negative for: CVA Tenderness Upper Extremity: Positive for: Normal Inspection Lower Extremity: Positive for: Normal Inspection Neurological: Positive for: GCS=15, CN II-XII Intact, Speech Normal Skin: Positive for: Warm, Dry, Normal Color Psychiatric: Positive for: Alert, Oriented x 3, Normal Concentration - Medications Active Medications: Active Medications Generic Name Dose Route Start Last Admin Trade Name Freq PRN Reason Stop Dose Admin Acetaminophen 650 mg 08/12/18 16:41 08/15/18 07:39 Tylenol 325mg Tab PO 650 mg Q6 PRN Administration Fever >100.4 F or Pain Heparin Sodium (Porcine) 5,000 units 08/12/18 22:00 08/15/18 05:06 Heparin SC 5,000 units Q8 RIRI Administration Sodium Chloride 1,000 mls @ 75 mls/hr 08/13/18 10:11 08/15/18 05:06 Sodium Chloride 0.9% IV 75 mls/hr .[id number] RIRI Administration Vancomycin/Sodium Chloride 1 gm in 200 mls @ 166.7 mls/hr 08/15/18 08:30 08/15/18 09:01 Vancomycin 1 Gm/Ns 200 Ml IVPB 08/20/18 08:31 166.7 mls/hr Q12H RIRI Administration Protocol Amikacin Sulfate 500 mg/ 252 mls @ 250 mls/hr 08/15/18 11:01 Sodium Chloride IVPB 08/15/18 12:01 ONCE ONE Protocol Meropenem 1 gm/ Sodium 100 mls @ 100 mls/hr 08/15/18 14:00 Chloride IVPB Q8 RIRI Protocol Lactobacillus Acidophilus 1 cap 08/12/18 18:00 08/14/18 18:14 Bacid Acidophilus PO 1 cap BID RIRI Administration Pantoprazole Sodium 20 mg 08/12/18 15:45 08/14/18 09:54 Protonix Ec Tab PO 20 mg DAILY RIRI Administration Potassium Phos/Sodium Phos 1 pkt 08/14/18 10:00 08/14/18 17:57 Neutra-Phos PO 08/15/18 18:01 1 pkt BID RIRI Administration Tamsulosin HCl 0.4 mg 08/12/18 16:45 08/14/18 09:52 Flomax PO 08/16/18 10:01 0.4 mg DAILY RIRI Administration - Patient Studies Lab Studies: Microbiology Studies 08/12/18 13:59 Blood Culture - Final Blood Klebsiella Pneumoniae Ssp Pneu Gram Stain - Final 08/12/18 13:59 Blood Culture - Final Blood Klebsiella Pneumoniae Ssp Pneu Gram Stain - Final 08/12/18 11:05 Urine Culture - Final Urine Klebsiella Pneumoniae Ssp Pneu Lab Studies 08/15/18 08/15/18 08/15/18 Range/Units 10:00 08:20 08:20 WBC 6.7 (4.8-10.8) K/uL RBC 3.57 L (4.40-5.90) Mil/uL Hgb 11.4 L (12.0-18.0) g/dL Hct 32.7 L (35.0-51.0) % MCV 91.8 (80.0-94.0) fL MCH 31.9 H (27.0-31.0) pg MCHC 34.7 (33.0-37.0) g/dL RDW 14.3 (11.5-14.5) % Plt Count 80 L (130-400) K/uL MPV 10.4 (7.2-11.7) fL Neut % (Auto) 87.5 H (50.0-75.0) % Lymph % (Auto) 6.5 L (20.0-40.0) % [place] % (Auto) 5.4 (0.0-10.0) % Eos % (Auto) 0.3 (0.0-4.0) % Baso % (Auto) 0.3 (0.0-2.0) % Neut # (Auto) 5.8 (1.8-7.0) K/uL Lymph # (Auto) 0.4 L (1.0-4.3) K/uL [place] # (Auto) 0.4 (0.0-0.8) K/uL Eos # (Auto) 0.0 (0.0-0.7) K/uL Baso # (Auto) 0.0 (0.0-0.2) K/uL Neutrophils % (Manual) 86 H (50-75) % Band Neutrophils % 5 H (0-2) % Lymphocytes % (Manual) 5 L (20-40) % Monocytes % (Manual) 4 (0-10) % Platelet Estimate Decreased L (NORMAL) RBC Morphology Normal Puncture Site pCO2 (35-45) mm/Hg pO2 (80-100) mm/Hg HCO3 (21-28) mmol/L ABG pH (7.35-7.45) ABG Total CO2 (22-28) mmol/L ABG O2 Saturation (95-98) % ABG Base Excess (-2.0-3.0) mmol/L Huey Test ABG Potassium (3.6-5.2) mmol/L A-a O2 Difference mm/Hg Respiratory Index Sodium 139 (132-148) mmol/l Chloride 111 H (98-107) mmol/L Glucose (75-110) mg/dl Lactate (0.7-2.1) mmol/L FiO2 % Crit Value Called To Crit Value Called By Crit Value Read Back Blood Gas Notified Time Potassium 3.8 (3.6-5.2) mmol/L Carbon Dioxide 16 L (22-30) mmol/L Anion Gap 16 (10-20) BUN 15 (9-20) mg/dL Creatinine 0.9 (0.8-1.5) mg/dL Est GFR ( Amer) > 60 Est GFR (Non-Af Amer) > 60 POC Glucose (mg/dL) (65-110) mg/dL Random Glucose 123 H (75-110) mg/dL Lactic Acid 1.3 (0.7-2.1) mmol/L Calcium 7.6 L (8.6-10.4) mg/dl Phosphorus 1.1 L (2.5-4.5) mg/dL Magnesium 2.0 (1.6-2.3) mg/dL Total Bilirubin 0.7 (0.2-1.3) mg/dL AST 63 H D (17-59) U/L ALT 59 (21-72) U/L Alkaline Phosphatase 130 H D (38-126) U/L NT-Pro-B Natriuret Pep 4120 H (0-900) pg/mL Total Protein 5.8 L (6.3-8.3) g/dL Albumin 3.1 L (3.5-5.0) g/dL Globulin 2.7 (2.2-3.9) gm/dL Albumin/Globulin Ratio 1.1 (1.0-2.1) Arterial Blood Potassium (3.6-5.2) mmol/L 08/15/18 08/15/18 Range/Units 06:45 06:42 WBC (4.8-10.8) K/uL RBC (4.40-5.90) Mil/uL Hgb (12.0-18.0) g/dL Hct (35.0-51.0) % MCV (80.0-94.0) fL MCH (27.0-31.0) pg MCHC (33.0-37.0) g/dL RDW (11.5-14.5) % Plt Count (130-400) K/uL MPV (7.2-11.7) fL Neut % (Auto) (50.0-75.0) % Lymph % (Auto) (20.0-40.0) % [place] % (Auto) (0.0-10.0) % Eos % (Auto) (0.0-4.0) % Baso % (Auto) (0.0-2.0) % Neut # (Auto) (1.8-7.0) K/uL Lymph # (Auto) (1.0-4.3) K/uL [place] # (Auto) (0.0-0.8) K/uL Eos # (Auto) (0.0-0.7) K/uL Baso # (Auto) (0.0-0.2) K/uL Neutrophils % (Manual) (50-75) % Band Neutrophils % (0-2) % Lymphocytes % (Manual) (20-40) % Monocytes % (Manual) (0-10) % Platelet Estimate (NORMAL) RBC Morphology Puncture Site Lr pCO2 47 H (35-45) mm/Hg pO2 163 H (80-100) mm/Hg HCO3 15.8 L (21-28) mmol/L ABG pH 7.16 L* (7.35-7.45) ABG Total CO2 18.2 L (22-28) mmol/L ABG O2 Saturation 99.2 H (95-98) % ABG Base Excess -11.8 L (-2.0-3.0) mmol/L Huey Test Pos ABG Potassium 3.9 (3.6-5.2) mmol/L A-a O2 Difference 491.0 mm/Hg Respiratory Index 3.0 Sodium 142.0 (132-148) mmol/l Chloride 113.0 H (98-107) mmol/L Glucose 129 H (75-110) mg/dl Lactate 6.0 H* (0.7-2.1) mmol/L FiO2 100.0 % Crit Value Called To Dr gan Crit Value Called By Antony dudley/rt Crit Value Read Back Y Blood Gas Notified Time 655 Potassium (3.6-5.2) mmol/L Carbon Dioxide (22-30) mmol/L Anion Gap (10-20) BUN (9-20) mg/dL Creatinine (0.8-1.5) mg/dL Est GFR ( Amer) Est GFR (Non-Af Amer) POC Glucose (mg/dL) 92 (65-110) mg/dL Random Glucose (75-110) mg/dL Lactic Acid (0.7-2.1) mmol/L Calcium (8.6-10.4) mg/dl Phosphorus (2.5-4.5) mg/dL Magnesium (1.6-2.3) mg/dL Total Bilirubin (0.2-1.3) mg/dL AST (17-59) U/L ALT (21-72) U/L Alkaline Phosphatase (38-126) U/L NT-Pro-B Natriuret Pep (0-900) pg/mL Total Protein (6.3-8.3) g/dL Albumin (3.5-5.0) g/dL Globulin (2.2-3.9) gm/dL Albumin/Globulin Ratio (1.0-2.1) Arterial Blood Potassium 3.9 (3.6-5.2) mmol/L Laboratory Results - last 24 hr 08/15/18 08/15/18 08/15/18 06:42 06:45 08:20 WBC 6.7 RBC 3.57 L Hgb 11.4 L Hct 32.7 L MCV 91.8 MCH 31.9 H MCHC 34.7 RDW 14.3 Plt Count 80 L MPV 10.4 Neut % (Auto) 87.5 H Lymph % (Auto) 6.5 L [place] % (Auto) 5.4 Eos % (Auto) 0.3 Baso % (Auto) 0.3 Neut # (Auto) 5.8 Lymph # (Auto) 0.4 L [place] # (Auto) 0.4 Eos # (Auto) 0.0 Baso # (Auto) 0.0 Neutrophils % (Manual) 86 H Band Neutrophils % 5 H Lymphocytes % (Manual) 5 L Monocytes % (Manual) 4 Platelet Estimate Decreased L RBC Morphology Normal Puncture Site Lr pCO2 47 H pO2 163 H HCO3 15.8 L ABG pH 7.16 L* ABG Total CO2 18.2 L ABG O2 Saturation 99.2 H ABG Base Excess -11.8 L [place] Test Pos ABG Potassium 3.9 A-a O2 Difference 491.0 Respiratory Index 3.0 Sodium 142.0 Chloride 113.0 H Glucose 129 H Lactate 6.0 H* FiO2 100.0 Crit Value Called To Dr gan Crit Value Called By Antony dudley/rt Crit Value Read Back Y Blood Gas Notified Time 655 Potassium Carbon Dioxide Anion Gap BUN Creatinine Est GFR ( Amer) Est GFR (Non-Af Amer) POC Glucose (mg/dL) 92 Random Glucose Lactic Acid Calcium Phosphorus Magnesium Total Bilirubin AST ALT Alkaline Phosphatase NT-Pro-B Natriuret Pep Total Protein Albumin Globulin Albumin/Globulin Ratio Arterial Blood Potassium 3.9 08/15/18 08/15/18 08:20 10:00 WBC RBC Hgb Hct MCV MCH MCHC RDW Plt Count MPV Neut % (Auto) Lymph % (Auto) [place] % (Auto) Eos % (Auto) Baso % (Auto) Neut # (Auto) Lymph # (Auto) [place] # (Auto) Eos # (Auto) Baso # (Auto) Neutrophils % (Manual) Band Neutrophils % Lymphocytes % (Manual) Monocytes % (Manual) Platelet Estimate RBC Morphology Puncture Site pCO2 pO2 HCO3 ABG pH ABG Total CO2 ABG O2 Saturation ABG Base Excess Huey Test ABG Potassium A-a O2 Difference Respiratory Index Sodium 139 Chloride 111 H Glucose Lactate FiO2 Crit Value Called To Crit Value Called By Crit Value Read Back Blood Gas Notified Time Potassium 3.8 Carbon Dioxide 16 L Anion Gap 16 BUN 15 Creatinine 0.9 Est GFR ( Amer) > 60 Est GFR (Non-Af Amer) > 60 POC Glucose (mg/dL) Random Glucose 123 H Lactic Acid 1.3 Calcium 7.6 L Phosphorus 1.1 L Magnesium 2.0 Total Bilirubin 0.7 AST 63 H D ALT 59 Alkaline Phosphatase 130 H D NT-Pro-B Natriuret Pep 4120 H Total Protein 5.8 L Albumin 3.1 L Globulin 2.7 Albumin/Globulin Ratio 1.1 Arterial Blood Potassium EKG/Cardiology Studies: Cardiology / EKG Studies 08/15/18 10:52 EKG [ELECTROCARDIOGRAM] Routine Comment: Mode Of Transportation: Reason For Exam: bradycardia Results Reviewed to Date: Yes Review of Systems - Constitutional Constitutional: Fever, Chills, Sweats - EENT Eyes: UNREMARKABLE. absent: Blurred Vision, Change in Vision Ears: Decreased Hearing (R ear- chronic) Nose/Mouth/Throat: UNREMARKABLE - Cardiovascular Cardiovascular: UNREMARKABLE. absent: Chest Pain - Respiratory Respiratory: UNREMARKABLE. absent: Dyspnea - Gastrointestinal Gastrointestinal: UNREMARKABLE. absent: Abdominal Pain, Constipation, Diarrhea, Nausea, Vomiting - Genitourinary Genitourinary: Dysuria. absent: Hematuria - Musculoskeletal Musculoskeletal: UNREMARKABLE - Integumentary Integumentary: UNREMARKABLE. absent: Lesions - Neurological Neurological: UNREMARKABLE - Psychiatric Psychiatric: UNREMARKABLE - Endocrine Endocrine: UNREMARKABLE - Hematologic/Lymphatic Hematologic: UNREMARKABLE Critical Care Progress Note - Extremities/Vascular Does the Patient have a Central Venous Catheter?: No Does the Patient need a Central Venous Catheter?: No Does the Patient have a Strauss Catheter?: No Does the Patient need a Strauss Catheter?: No - Prophylaxis GI Prophylaxis GI: PPI - Prophylaxis DVT Prophylaxis DVT: Heparin SQ - Nutrition Nutrition: Nutrition Category Date Time Status Dysphagia/Modified Consistency Diet [DIET] Diets 08/14/18 Lunch Active Assessment/Plan - Assessment and Plan (Free Text) Assessment: Patient is a 77 yo male without significant PMH who presented with fever and abdominal pain. Patient was admitted for pyelonephritis. V[employer]ICAL [employer] B[employer] SAW OPERATOR was called on 08/12 for hypotension and patient was transferred to the ICU. He was treated with broad spectrum IV abx and his vitals remained stable, so he was transferred back to med/surg over the weekend. Today 08/15, an V[employer]ICAL [employer] BAND SAW OPERATOR was called for respiratory distress. Patient was transferred back to the ICU for PRN BiPAP, bradycardia, and hypotension. Patient's urine and blood cultures grew Klebsiella. Plan: Neuro: - No acute issues - Monitor mental status CV: Pericardial effusion - CT chest/abd/pelvis 08/15: moderately large b/l pleural effusions, sm-med pericardial effusion - Echo 08/12: EF >70%, no significant abnormalities - Repeat Echo pending Bradycardia - EKG: low voltage, sinus bradycardia - KENNEDY x3 pending - TSH wnl - Cardiology consulted (Eulalio) Pulm: - V[employer] B[employer] SAW OPERATOR for respiratory distress on 08/15- resolved - ABG: pH 7.16, pCO2 47, pO2 163, lactate 6 - Maintain spO2>92%- NC or BiPAP PRN GI: - No acute issues - Heart healthy diet : - CT A/P 08/12: no urolithiasis or evidence of recently passed calculus, bladder wall thickening - CT chest/abd/pelvis 08/15: b/l renal cysts, no change in liver cyst, urinary bladder wall thickening - BUN, Cr wnl - Replete electrolytes PRN - Increase Flomax to 0.4 mg PO BID - PSA elevated (7.82) - Urology consulted (Kamala Mcfadden) - Nephrology consulted (Rikki) Endo: - Maintain euglycemia - TSH wnl Heme: - Anemia- Hgb stable (11.4) - Monitor H&H ID: Septic shock (bacteremia)- suspect 11/12 cystitis - V[employer]W OPERATOR for hypotension on 08/12 - Off pressors - Febrile- Tmax 103 - Tylenol 650 mg PO Q6H PRN - Lactate elevated (6) - Procal elevated (31.91) - Leukocytosis resolved - Blood, urine Cx- Klebsiella pneumoniae - NS @ 75 mL/hr - Amikacin 500 mg IV x1 - Meropenem 1 g IV Q8H - Vancomycin 1 g IV Q12H - F/u trough - Florastor 250 mg PO BID - ID consulted (El) Ppx: VTE: SCDs, heparin 5000 units SC Q8H GI: PTX 40 mg PO daily PT Code status: full code Case was discussed with attending, Dr. Radha Hernandez. PGY-1 Anh Quinteros D.O. <Pasquale Hernandez - Last Filed: 08/15/18 14:30> CCU Objective - Vital Signs / Intake & Output Vital Signs (Last 4 hours): Vital Signs Temp Pulse Resp BP Pulse Ox 08/15/18 14:00 55 L 14 95 08/15/18 13:30 62 12 97 08/15/18 13:06 62 15 99/60 L 100 08/15/18 13:00 50 L 12 98 08/15/18 12:30 55 L 17 96 08/15/18 12:06 60 16 102/63 97 08/15/18 12:00 101.1 F H 56 L 14 97 08/15/18 11:30 57 L 17 98 08/15/18 11:07 55 L 15 100/51 L 98 08/15/18 11:00 68 16 97 08/15/18 10:30 61 30 H 97 Intake and Output (Last 8hrs): Intake & Output 08/14/18 08/15/18 08/15/18 22:59 06:59 14:59 Intake Total 800 1867.5 Output Total 350 100 Balance 450 1767.5 Weight 155 lb 4.8 oz Intake: Intake, IV Amount 800 1627.5 Left Distal Port Forearm 127.5 Left Forearm 900 Right Forearm 200 Right Wrist 600 600 Oral 240 Output: Urine 350 100 Urine, Voided 350 100 Other: # Voids Urine, Voided 3 # Bowel Movements 1 1 - Medications Active Medications: Active Medications Generic Name Dose Route Start Last Admin Trade Name Freq PRN Reason Stop Dose Admin Acetaminophen 650 mg 08/12/18 16:41 08/15/18 07:39 Tylenol 325mg Tab PO 650 mg Q6 PRN Administration Fever >100.4 F or Pain Heparin Sodium (Porcine) 5,000 units 08/12/18 22:00 08/15/18 13:37 Heparin SC 5,000 units Q8 RIRI Administration Sodium Chloride 1,000 mls @ 75 mls/hr 08/13/18 10:11 08/15/18 05:06 Sodium Chloride 0.9% IV 75 mls/hr .[id number] RIRI Administration Vancomycin/Sodium Chloride 1 gm in 200 mls @ 166.7 mls/hr 08/15/18 08:30 08/15/18 09:01 Vancomycin 1 Gm/Ns 200 Ml IVPB 08/20/18 08:31 166.7 mls/hr Q12H RIRI Administration Protocol Meropenem 1 gm/ Sodium 100 mls @ 100 mls/hr 08/15/18 14:00 08/15/18 13:37 Chloride IVPB 100 mls/hr Q8H RIRI Administration Protocol Potassium Phosphate 15 mmole/ 255 mls @ 42.5 mls/hr 08/15/18 12:00 08/15/18 12:16 Sodium Chloride IVPB 08/15/18 17:59 42.5 mls/hr ONCE ONE Administration Lactobacillus Acidophilus 1 cap 08/12/18 18:00 08/15/18 12:16 Bacid Acidophilus PO 1 cap BID RIRI Administration Pantoprazole Sodium 40 mg 08/15/18 13:50 Protonix Ec Tab PO DAILY RIRI Potassium Phos/Sodium Phos 1 pkt 08/14/18 10:00 08/15/18 12:16 Neutra-Phos PO 08/15/18 18:01 1 pkt BID RIRI Administration Tamsulosin HCl 0.4 mg 08/15/18 18:00 Flomax PO BID RIRI - Patient Studies Lab Studies: Microbiology Studies 08/12/18 13:59 Blood Culture - Final Blood Klebsiella Pneumoniae Ssp Pneu Gram Stain - Final 08/12/18 13:59 Blood Culture - Final Blood Klebsiella Pneumoniae Ssp Pneu Gram Stain - Final Lab Studies 08/15/18 08/15/18 08/15/18 Range/Units 10:00 08:20 08:20 WBC 6.7 (4.8-10.8) K/uL RBC 3.57 L (4.40-5.90) Mil/uL Hgb 11.4 L (12.0-18.0) g/dL Hct 32.7 L (35.0-51.0) % MCV 91.8 (80.0-94.0) fL MCH 31.9 H (27.0-31.0) pg MCHC 34.7 (33.0-37.0) g/dL RDW 14.3 (11.5-14.5) % Plt Count 80 L (130-400) K/uL MPV 10.4 (7.2-11.7) fL Neut % (Auto) 87.5 H (50.0-75.0) % Lymph % (Auto) 6.5 L (20.0-40.0) % [place] % (Auto) 5.4 (0.0-10.0) % Eos % (Auto) 0.3 (0.0-4.0) % Baso % (Auto) 0.3 (0.0-2.0) % Neut # (Auto) 5.8 (1.8-7.0) K/uL Lymph # (Auto) 0.4 L (1.0-4.3) K/uL [place] # (Auto) 0.4 (0.0-0.8) K/uL Eos # (Auto) 0.0 (0.0-0.7) K/uL Baso # (Auto) 0.0 (0.0-0.2) K/uL Neutrophils % (Manual) 86 H (50-75) % Band Neutrophils % 5 H (0-2) % Lymphocytes % (Manual) 5 L (20-40) % Monocytes % (Manual) 4 (0-10) % Platelet Estimate Decreased L (NORMAL) RBC Morphology Normal Puncture Site pCO2 (35-45) mm/Hg pO2 (80-100) mm/Hg HCO3 (21-28) mmol/L ABG pH (7.35-7.45) ABG Total CO2 (22-28) mmol/L ABG O2 Saturation (95-98) % ABG Base Excess (-2.0-3.0) mmol/L Huey Test ABG Potassium (3.6-5.2) mmol/L A-a O2 Difference mm/Hg Respiratory Index Sodium 139 (132-148) mmol/l Chloride 111 H (98-107) mmol/L Glucose (75-110) mg/dl Lactate (0.7-2.1) mmol/L FiO2 % Crit Value Called To Crit Value Called By Crit Value Read Back Blood Gas Notified Time Potassium 3.8 (3.6-5.2) mmol/L Carbon Dioxide 16 L (22-30) mmol/L Anion Gap 16 (10-20) BUN 15 (9-20) mg/dL Creatinine 0.9 (0.8-1.5) mg/dL Est GFR ( Amer) > 60 Est GFR (Non-Af Amer) > 60 POC Glucose (mg/dL) (65-110) mg/dL Random Glucose 123 H (75-110) mg/dL Lactic Acid 1.3 (0.7-2.1) mmol/L Calcium 7.6 L (8.6-10.4) mg/dl Phosphorus 1.1 L (2.5-4.5) mg/dL Magnesium 2.0 (1.6-2.3) mg/dL Total Bilirubin 0.7 (0.2-1.3) mg/dL AST 63 H D (17-59) U/L ALT 59 (21-72) U/L Alkaline Phosphatase 130 H D (38-126) U/L NT-Pro-B Natriuret Pep 4120 H (0-900) pg/mL Total Protein 5.8 L (6.3-8.3) g/dL Albumin 3.1 L (3.5-5.0) g/dL Globulin 2.7 (2.2-3.9) gm/dL Albumin/Globulin Ratio 1.1 (1.0-2.1) Prostate Specific Ag 7.82 H (0.00-4.0) ng/mL TSH 3rd Generation 2.30 (0.46-4.68) mIU/L Arterial Blood Potassium (3.6-5.2) mmol/L 08/15/18 08/15/18 Range/Units 06:45 06:42 WBC (4.8-10.8) K/uL RBC (4.40-5.90) Mil/uL Hgb (12.0-18.0) g/dL Hct (35.0-51.0) % MCV (80.0-94.0) fL MCH (27.0-31.0) pg MCHC (33.0-37.0) g/dL RDW (11.5-14.5) % Plt Count (130-400) K/uL MPV (7.2-11.7) fL Neut % (Auto) (50.0-75.0) % Lymph % (Auto) (20.0-40.0) % [place] % (Auto) (0.0-10.0) % Eos % (Auto) (0.0-4.0) % Baso % (Auto) (0.0-2.0) % Neut # (Auto) (1.8-7.0) K/uL Lymph # (Auto) (1.0-4.3) K/uL [place] # (Auto) (0.0-0.8) K/uL Eos # (Auto) (0.0-0.7) K/uL Baso # (Auto) (0.0-0.2) K/uL Neutrophils % (Manual) (50-75) % Band Neutrophils % (0-2) % Lymphocytes % (Manual) (20-40) % Monocytes % (Manual) (0-10) % Platelet Estimate (NORMAL) RBC Morphology Puncture Site Lr pCO2 47 H (35-45) mm/Hg pO2 163 H (80-100) mm/Hg HCO3 15.8 L (21-28) mmol/L ABG pH 7.16 L* (7.35-7.45) ABG Total CO2 18.2 L (22-28) mmol/L ABG O2 Saturation 99.2 H (95-98) % ABG Base Excess -11.8 L (-2.0-3.0) mmol/L Huey Test Pos ABG Potassium 3.9 (3.6-5.2) mmol/L A-a O2 Difference 491.0 mm/Hg Respiratory Index 3.0 Sodium 142.0 (132-148) mmol/l Chloride 113.0 H (98-107) mmol/L Glucose 129 H (75-110) mg/dl Lactate 6.0 H* (0.7-2.1) mmol/L FiO2 100.0 % Crit Value Called To Dr gan Crit Value Called By Antony dudley/rt Crit Value Read Back Y Blood Gas Notified Time 655 Potassium (3.6-5.2) mmol/L Carbon Dioxide (22-30) mmol/L Anion Gap (10-20) BUN (9-20) mg/dL Creatinine (0.8-1.5) mg/dL Est GFR ( Amer) Est GFR (Non-Af Amer) POC Glucose (mg/dL) 92 (65-110) mg/dL Random Glucose (75-110) mg/dL Lactic Acid (0.7-2.1) mmol/L Calcium (8.6-10.4) mg/dl Phosphorus (2.5-4.5) mg/dL Magnesium (1.6-2.3) mg/dL Total Bilirubin (0.2-1.3) mg/dL AST (17-59) U/L ALT (21-72) U/L Alkaline Phosphatase (38-126) U/L NT-Pro-B Natriuret Pep (0-900) pg/mL Total Protein (6.3-8.3) g/dL Albumin (3.5-5.0) g/dL Globulin (2.2-3.9) gm/dL Albumin/Globulin Ratio (1.0-2.1) Prostate Specific Ag (0.00-4.0) ng/mL TSH 3rd Generation (0.46-4.68) mIU/L Arterial Blood Potassium 3.9 (3.6-5.2) mmol/L Laboratory Results - last 24 hr 08/15/18 08/15/18 08/15/18 06:42 06:45 08:20 WBC 6.7 RBC 3.57 L Hgb 11.4 L Hct 32.7 L MCV 91.8 MCH 31.9 H MCHC 34.7 RDW 14.3 Plt Count 80 L MPV 10.4 Neut % (Auto) 87.5 H Lymph % (Auto) 6.5 L [place] % (Auto) 5.4 Eos % (Auto) 0.3 Baso % (Auto) 0.3 Neut # (Auto) 5.8 Lymph # (Auto) 0.4 L [place] # (Auto) 0.4 Eos # (Auto) 0.0 Baso # (Auto) 0.0 Neutrophils % (Manual) 86 H Band Neutrophils % 5 H Lymphocytes % (Manual) 5 L Monocytes % (Manual) 4 Platelet Estimate Decreased L RBC Morphology Normal Puncture Site Lr pCO2 47 H pO2 163 H HCO3 15.8 L ABG pH 7.16 L* ABG Total CO2 18.2 L ABG O2 Saturation 99.2 H ABG Base Excess -11.8 L [place] Test Pos ABG Potassium 3.9 A-a O2 Difference 491.0 Respiratory Index 3.0 Sodium 142.0 Chloride 113.0 H Glucose 129 H Lactate 6.0 H* FiO2 100.0 Crit Value Called To Dr gan Crit Value Called By Antony dudley/rt Crit Value Read Back Y Blood Gas Notified Time 655 Potassium Carbon Dioxide Anion Gap BUN Creatinine Est GFR ( Amer) Est GFR (Non-Af Amer) POC Glucose (mg/dL) 92 Random Glucose Lactic Acid Calcium Phosphorus Magnesium Total Bilirubin AST ALT Alkaline Phosphatase NT-Pro-B Natriuret Pep Total Protein Albumin Globulin Albumin/Globulin Ratio Prostate Specific Ag TSH 3rd Generation Arterial Blood Potassium 3.9 08/15/18 08/15/18 08:20 10:00 WBC RBC Hgb Hct MCV MCH MCHC RDW Plt Count MPV Neut % (Auto) Lymph % (Auto) [place] % (Auto) Eos % (Auto) Baso % (Auto) Neut # (Auto) Lymph # (Auto) [place] # (Auto) Eos # (Auto) Baso # (Auto) Neutrophils % (Manual) Band Neutrophils % Lymphocytes % (Manual) Monocytes % (Manual) Platelet Estimate RBC Morphology Puncture Site pCO2 pO2 HCO3 ABG pH ABG Total CO2 ABG O2 Saturation ABG Base Excess [place] Test ABG Potassium A-a O2 Difference Respiratory Index Sodium 139 Chloride 111 H Glucose Lactate FiO2 Crit Value Called To Crit Value Called By Crit Value Read Back Blood Gas Notified Time Potassium 3.8 Carbon Dioxide 16 L Anion Gap 16 BUN 15 Creatinine 0.9 Est GFR ( Amer) > 60 Est GFR (Non-Af Amer) > 60 POC Glucose (mg/dL) Random Glucose 123 H Lactic Acid 1.3 Calcium 7.6 L Phosphorus 1.1 L Magnesium 2.0 Total Bilirubin 0.7 AST 63 H D ALT 59 Alkaline Phosphatase 130 H D NT-Pro-B Natriuret Pep 4120 H Total Protein 5.8 L Albumin 3.1 L Globulin 2.7 Albumin/Globulin Ratio 1.1 Prostate Specific Ag 7.82 H TSH 3rd Generation 2.30 Arterial Blood Potassium EKG/Cardiology Studies: Cardiology / EKG Studies 08/15/18 10:52 EKG [ELECTROCARDIOGRAM] Routine Comment: Mode Of Transportation: Reason For Exam: bradycardia Critical Care Progress Note - Nutrition Nutrition: Nutrition Category Date Time Status Heart Healthy Diet [DIET] Diets 08/15/18 Dinner Active Assessment/Plan - Assessment and Plan (Free Text) Plan: Patient had a rapid response this morning. Temperature was 104. Patient was also had positive lactic acid. Given the overall medical condition I transfer the patient to ICU. Currently patient has a bradycardia, some pleural effusion and also some pericardial effusion. Patient is awake and responding. But the blood pressures on the low side. Underlying cardiac cannot be ruled out. Patient initially admitted with a Klebsiella bacteremia. The source is unclear. Urological evaluation. Infectious disease evaluation I spoke to the ID. 1 dose of amikacin was given. Patient will be managed in the ICU I spoke to the patient's family also
[2018-08-15] MEDS ORDERED: Potassium Phosphate 15 MMOLE in Sodium Chloride 0.9% 250 ML IVPB ONE (12:00)
--- NOTE | 2018-08-15 12:13 | CARD ---
APPROVED REPORT Date of service: 08/12/2018 EKG Measurement Heart [id number] <Conclusion> Sinus tachycardia Otherwise normal ECG
[2018-08-15] MEDS: Potassium & Sodium Phosphate PO SCH ×2 (12:16→17:04)
[2018-08-15] MEDS: Pantoprazole 20 mg EC Tab PO SCH (12:16)
[2018-08-15] MEDS: Lactobacillus Acidophilus 500 MU Cap PO SCH ×2 (12:16→17:04)
[2018-08-15] MEDS ORDERED: SODIUM CHLORIDE 0.9% IVPB ONE (13:00)
[2018-08-15] MEDS ORDERED: AMIKACIN IVPB ONE (13:00)
[2018-08-15] MEDS: Meropenem 1 GM in Sodium Chloride 0.9% 100 ML IVPB SCH ×2 (13:37→22:00)
[2018-08-15 15:01] LABS: CK-MB 2.59 ng/mL (0.0-3.38); TROPONIN I 0.095 ng/mL (0.00-0.120)
--- NOTE | 2018-08-15 15:06 | RAD ---
Date of service: 08/15/2018 HISTORY: S/p PICC line insertion COMPARISON: No prior. FINDINGS: In situ right-sided PICC line with tip in the SVC. LUNGS: . Slightly improved pulmonary venous congestion bilateral lower lobe alveolar-type infiltrates/atelectasis. There also appears to be slight improvement bilateral effusions.. PLEURA: As above. No pneumothorax apparent. CARDIOVASCULAR: No aortic atherosclerotic calcification present. Normal cardiac size. No pulmonary vascular congestion. OSSEOUS STRUCTURES: No significant abnormalities. VISUALIZED UPPER ABDOMEN: Normal. OTHER FINDINGS: None. IMPRESSION: In situ PICC line as described. Slightly improved pulmonary venous congestion bilateral lower lobe alveolar-type infiltrates/atelectasis. There also appears to be slight improvement bilateral effusions..
--- NOTE | 2018-08-15 15:35 | CP.PCM.PN ---
Subjective - Date & Time of Evaluation Date of Evaluation: 08/15/18 Time of Evaluation: 15:31 - Subjective Subjective: renal Follow up note hpi: patient admitted with acute abdominal pain, he has pmh of cad, ?DM, htn,no prior renal disease. [facility] following which he was transferred to icu, noted to have urosepsis and ashlie. meds reviewed labs and imaging reviewed vitals reviewed Subjective: Noted events overnight. Patients feels sick. febrile + Denies chest pain, palpitation, improved shortness of breath, denies leg swelling. All other negative Physical Examination: family bedside General Appearance: Comfortable, in no acute respiratory distress, co-operative . Vitals reviewed and noted as below Head; Atraumatic, normocephalic ENT: no ulcers no thrush. Tongue is midline. Oropharynx: no rash or ulcers. EYES: Pupils are equal, round and reactive to light accommodation. Eye muscles and extraocular movement intact. Sclera is anicteric. Neck; supple no lymphadenopathy, no thyromegaly or bruit Lungs: Normal respiratory rate/effort. Breath sounds bilateral decreased at bases Heart: Normal rate. s1s2 normal. No rub or gallop. Extremities: no edema. No varicose veins Neurological: Patient is alert, awake and oriented to person, place and time. No focal deficit. Strength bilateral appropriate and equal Skin: Warm and dry. Normal turgor. No rash. Palpitation: Normal elasticity for age Abdomen: Abdomen is soft. Bowel sounds +. There is no abdominal tenderness, no guarding/rigidity no organomegaly Psych: normal insight and normal affect/mood MSK: no joint tenderness or swelling. Digits and nails normal, no deformity : kidney or bladder not palpable A&P: critical ASHLIE/urosepsis/UTI/shock/hypophsphatemia/anemia/lactic acidosis/pleural effusion; ashlie likely prerenal from sepsis syndrome from uti , cr is improving and non oliguric monitor I&Os closely no acute need for dialysis continue with meds/abx for gfr >60 supplements lytes as needed. replace phos aggressively and monitor levels maintain hemodynamic stable d/w team and family Objective - Vital Signs/Intake and Output Vital Signs (last 24 hours): Temp Pulse Resp BP Pulse Ox 100.2 F H 51 L 27 H 89/62 L 98 08/15/18 15:24 08/15/18 15:00 08/15/18 15:00 08/15/18 14:06 08/15/18 15:00 Intake and Output: 08/15/18 08/15/18 06:59 18:59 Intake Total 800 2065.0 Output Total 350 200 Balance 450 1865.0 - Medications Medications: Current Medications Acetaminophen (Tylenol 325mg Tab) 650 mg PO Q6 PRN PRN Reason: Fever >100.4 F or Pain Last Admin: 08/15/18 07:39 Dose: 650 mg Heparin Sodium (Porcine) (Heparin) 5,000 units SC Q8 [facility] Last Admin: 08/15/18 13:37 Dose: 5,000 units Sodium Chloride (Sodium Chloride 0.9%) 1,000 mls @ 75 mls/hr IV .[id number] [facility] Last Admin: 08/15/18 05:06 Dose: 75 mls/hr Vancomycin/Sodium Chloride (Vancomycin 1 Gm/Ns 200 Ml) 1 gm in 200 mls @ 166.7 mls/hr IVPB Q12H [facility]; Protocol Stop: 08/20/18 08:31 Last Admin: 08/15/18 09:01 Dose: 166.7 mls/hr Meropenem 1 gm/ Sodium (Chloride) 100 mls @ 100 mls/hr IVPB Q8H [facility]; Protocol Last Admin: 08/15/18 13:37 Dose: 100 mls/hr Potassium Phosphate 15 mmole/ (Sodium Chloride) 255 mls @ 42.5 mls/hr IVPB ONCE ONE Stop: 08/15/18 17:59 Last Admin: 08/15/18 12:16 Dose: 42.5 mls/hr Lactobacillus Acidophilus (Bacid Acidophilus) 1 cap PO BID [facility] Last Admin: 08/15/18 12:16 Dose: 1 cap Pantoprazole Sodium (Protonix Ec Tab) 40 mg PO DAILY [facility] Potassium Phos/Sodium Phos (Neutra-Phos) 1 pkt PO BID [facility] Stop: 08/15/18 18:01 Last Admin: 08/15/18 12:16 Dose: 1 pkt Tamsulosin HCl (Flomax) 0.4 mg PO BID [facility] - Labs Labs: 08/15/18 08:20 08/15/18 08:20
--- NOTE | 2018-08-15 15:53 | CP.PCM.PN ---
Subjective - Date & Time of Evaluation Date of Evaluation: 08/15/18 Time of Evaluation: 15:00 - Subjective Subjective: dictated Objective - Vital Signs/Intake and Output Vital Signs (last 24 hours): Temp Pulse Resp BP Pulse Ox 100.2 F H 51 L 27 H 89/62 L 98 08/15/18 15:24 08/15/18 15:00 08/15/18 15:00 08/15/18 14:06 08/15/18 15:00 Intake and Output: 08/15/18 08/15/18 06:59 18:59 Intake Total 800 2065.0 Output Total 350 200 Balance 450 1865.0 - Medications Medications: Current Medications Acetaminophen (Tylenol 325mg Tab) 650 mg PO Q6 PRN PRN Reason: Fever >100.4 F or Pain Last Admin: 08/15/18 07:39 Dose: 650 mg Heparin Sodium (Porcine) (Heparin) 5,000 units SC Q8 [facility] Last Admin: 08/15/18 13:37 Dose: 5,000 units Sodium Chloride (Sodium Chloride 0.9%) 1,000 mls @ 75 mls/hr IV .[id number] [facility] Last Admin: 08/15/18 05:06 Dose: 75 mls/hr Vancomycin/Sodium Chloride (Vancomycin 1 Gm/Ns 200 Ml) 1 gm in 200 mls @ 166.7 mls/hr IVPB Q12H [facility]; Protocol Stop: 08/20/18 08:31 Last Admin: 08/15/18 09:01 Dose: 166.7 mls/hr Meropenem 1 gm/ Sodium (Chloride) 100 mls @ 100 mls/hr IVPB Q8H [facility]; Protocol Last Admin: 08/15/18 13:37 Dose: 100 mls/hr Potassium Phosphate 15 mmole/ (Sodium Chloride) 255 mls @ 42.5 mls/hr IVPB ONCE ONE Stop: 08/15/18 17:59 Last Admin: 08/15/18 12:16 Dose: 42.5 mls/hr Gentamicin Sulfate 80 mg/ (Sodium Chloride) 102 mls @ 100 mls/hr IVPB Q8H [facility]; Protocol Lactobacillus Acidophilus (Bacid Acidophilus) 1 cap PO BID [facility] Last Admin: 08/15/18 12:16 Dose: 1 cap Pantoprazole Sodium (Protonix Ec Tab) 40 mg PO DAILY [facility] Potassium Phos/Sodium Phos (Neutra-Phos) 1 pkt PO BID [facility] Stop: 08/15/18 18:01 Last Admin: 08/15/18 12:16 Dose: 1 pkt Tamsulosin HCl (Flomax) 0.4 mg PO BID [facility] - Labs Labs: 08/15/18 08:20 08/15/18 08:20
[2018-08-15 16:00] LABS: ABG ALLEN TEST POS; ARTERIAL BLOOD GAS HCO3 21.5 mmol/L (21-28); ARTERIAL BLOOD GAS O2 SAT 97.2 % (95-98); ARTERIAL BLOOD GAS PCO2 26 mm/Hg (35-45); ARTERIAL BLOOD GAS PH 7.45 (7.35-7.45); ARTERIAL BLOOD GAS PO2 72 mm/Hg (80-100); ARTERIAL BLOOD GAS TCO2 18.9 mmol/L (22-28)
--- NOTE | 2018-08-15 18:28 | CARD ---
APPROVED REPORT Date of service: 08/15/2018 EXAM: LIMITED Two-dimensional . Other Information Quality : TDSRhythm : INDICATION Pericardial Effusion Pleural Effusion Mitral Valve E/A ratio0.0 TDI E/Lateral E'0.0E/Medial E'0.0 <Conclusion> Small concentric pericardial effusion. No tamponade physiology seen.
[2018-08-15] MEDS ORDERED: Albuterol-Ipratrop 3 mg / 0.5 (3 ml) UD INH STA (18:39)
--- NOTE | 2018-08-15 18:51 | CP.PCM.PN ---
Subjective - Date & Time of Evaluation Date of Evaluation: 08/15/18 Time of Evaluation: 18:49 - Subjective Subjective: pt has sob wheesing uncomfortale Objective - Vital Signs/Intake and Output Vital Signs (last 24 hours): Temp Pulse Resp BP Pulse Ox 100.2 F H 56 L 25 H 109/64 98 08/15/18 15:24 08/15/18 17:00 08/15/18 17:00 08/15/18 16:06 08/15/18 17:00 Intake and Output: 08/15/18 08/15/18 06:59 18:59 Intake Total 800 2395.0 Output Total 350 200 Balance 450 2195.0 - Medications Medications: Current Medications Acetaminophen (Tylenol 325mg Tab) 650 mg PO Q6 PRN PRN Reason: Fever >100.4 F or Pain Last Admin: 08/15/18 07:39 Dose: 650 mg Albuterol/Ipratropium (Duoneb 3 Mg/0.5 Mg (3 Ml) Ud) 3 ml INH RQ6 PRN PRN Reason: Shortness of Breath Heparin Sodium (Porcine) (Heparin) 5,000 units SC Q8 [facility] Last Admin: 08/15/18 13:37 Dose: 5,000 units Sodium Chloride (Sodium Chloride 0.9%) 1,000 mls @ 75 mls/hr IV .[id number] [facility] Last Admin: 08/15/18 17:05 Dose: Not Given Vancomycin/Sodium Chloride (Vancomycin 1 Gm/Ns 200 Ml) 1 gm in 200 mls @ 166.7 mls/hr IVPB Q12H [facility]; Protocol Stop: 08/20/18 08:31 Last Admin: 08/15/18 09:01 Dose: 166.7 mls/hr Meropenem 1 gm/ Sodium (Chloride) 100 mls @ 100 mls/hr IVPB Q8H [facility]; Protocol Last Admin: 08/15/18 13:37 Dose: 100 mls/hr Gentamicin Sulfate 80 mg/ (Sodium Chloride) 102 mls @ 100 mls/hr IVPB Q8H [facility]; Protocol Lactobacillus Acidophilus (Bacid Acidophilus) 1 cap PO BID [facility] Last Admin: 08/15/18 17:04 Dose: 1 cap Pantoprazole Sodium (Protonix Ec Tab) 40 mg PO DAILY [facility] Tamsulosin HCl (Flomax) 0.4 mg PO BID [facility] Last Admin: 08/15/18 17:04 Dose: 0.4 mg - Labs Labs: 08/15/18 08:20 08/15/18 08:20 - Constitutional Appears: In Acute Distress - Head Exam Head Exam: ATRAUMATIC - Eye Exam Eye Exam: Normal appearance Pupil Exam: NORMAL ACCOMODATION - ENT Exam ENT Exam: Mucous Membranes Moist - Neck Exam Neck Exam: Full ROM - Respiratory Exam Respiratory Exam: Accessory Muscle Use, Decreased Breath Sounds, Rhonchi, Wheezes - Cardiovascular Exam Cardiovascular Exam: Tachycardia - GI/Abdominal Exam GI & Abdominal Exam: Normal Bowel Sounds - Extremities Exam Extremities Exam: Normal Inspection - Back Exam Back Exam: NORMAL INSPECTION - Neurological Exam Neurological Exam: Oriented x3 - Psychiatric Exam Psychiatric exam: Depressed - Skin Skin Exam: Pallor Assessment and Plan - Assessment and Plan (Free Text) Assessment: ac pyelonephritis ac resp distress bilateral plural efusion cont icu car orded p ulmonary consult Plan: pulmonary cons
[2018-08-15 20:30] LABS: BLOOD UREA NITROGEN 15 mg/dL (9-20); CALCIUM 7.5 mg/dl (8.6-10.4); GFR NON-AFRICAN AMERICAN > 60
[2018-08-15 20:42] LABS: CK-MB 2.93 ng/mL (0.0-3.38)
--- NOTE | 2018-08-15 22:34 | CP.PCM.PN ---
Subjective - Date & Time of Evaluation Date of Evaluation: 08/15/18 Time of Evaluation: 17:15 - Subjective Subjective: Patient transferred to ICU for respiratory distress and bradycardia Denies chest pain and dyspnea Objective - Vital Signs/Intake and Output Vital Signs (last 24 hours): Temp Pulse Resp BP Pulse Ox 100.9 F H 93 H 34 H 93/44 L 89 L 08/15/18 22:00 08/15/18 22:07 08/15/18 22:07 08/15/18 22:07 08/15/18 22:07 Intake and Output: 08/15/18 08/16/18 18:59 06:59 Intake Total 2470.0 500 Output Total 200 1050 Balance 2270.0 -550 - Medications Medications: Current Medications Acetaminophen (Tylenol 325mg Tab) 650 mg PO Q6 PRN PRN Reason: Fever >100.4 F or Pain Last Admin: 08/15/18 19:51 Dose: 650 mg Albuterol/Ipratropium (Duoneb 3 Mg/0.5 Mg (3 Ml) Ud) 3 ml INH RQ6 PRN PRN Reason: Shortness of Breath Furosemide (Lasix) 40 mg IVP DAILY [facility] Heparin Sodium (Porcine) (Heparin) 5,000 units SC Q8 [facility] Last Admin: 08/15/18 21:34 Dose: 5,000 units Sodium Chloride (Sodium Chloride 0.9%) 1,000 mls @ 75 mls/hr IV .[id number] [facility] Last Admin: 08/15/18 17:05 Dose: Not Given Vancomycin/Sodium Chloride (Vancomycin 1 Gm/Ns 200 Ml) 1 gm in 200 mls @ 166.7 mls/hr IVPB Q12H [facility]; Protocol Stop: 08/20/18 08:31 Last Admin: 08/15/18 19:51 Dose: 166.7 mls/hr Meropenem 1 gm/ Sodium (Chloride) 100 mls @ 100 mls/hr IVPB Q8H [facility]; Protocol Last Admin: 08/15/18 22:00 Dose: 100 mls/hr Gentamicin Sulfate 80 mg/ (Sodium Chloride) 102 mls @ 100 mls/hr IVPB Q8H [facility]; Protocol Last Admin: 08/15/18 21:34 Dose: 100 mls/hr Lactobacillus Acidophilus (Bacid Acidophilus) 1 cap PO BID [facility] Last Admin: 08/15/18 17:04 Dose: 1 cap Pantoprazole Sodium (Protonix Ec Tab) 40 mg PO DAILY [facility] Tamsulosin HCl (Flomax) 0.4 mg PO BID [facility] Last Admin: 08/15/18 17:04 Dose: 0.4 mg - Labs Labs: 08/15/18 08:20 08/15/18 20:11
[2018-08-16] MEDS ORDERED: Sodium Chloride 0.9% 250 ML IV ONE (03:25)
[2018-08-16] MEDS: Meropenem 1 GM in Sodium Chloride 0.9% 100 ML IVPB SCH ×3 (05:35→22:27)
[2018-08-16 06:14] LABS: BASO % 0.4 % (0.0-2.0); EOS # 0.1 K/uL (0.0-0.7); EOS % 0.9 % (0.0-4.0); HEMOGLOBIN 10.6 g/dL (12.0-18.0); LYMPH # 1.4 K/uL (1.0-4.3); LYMPH % 24.7 % (20.0-40.0); MEAN CELL VOLUME 92.5 fL (80.0-94.0); MEAN CORPUSCULAR HEMOGLOBIN 31.6 pg (27.0-31.0); MEAN CORPUSCULAR HGB CONC 34.2 g/dL (33.0-37.0); MONO # 0.8 K/uL (0.0-0.8); MONO % 15.1 % (0.0-10.0); NEUT # 3.3 K/uL (1.8-7.0); NEUT % 58.9 % (50.0-75.0); RBC 3.35 Mil/uL (4.40-5.90); RED CELL DISTRIBUTION WIDTH 14.3 % (11.5-14.5); WHITE BLOOD COUNT 5.6 K/uL (4.8-10.8)
[2018-08-16 06:43] LABS: CK-MB 2.55 ng/mL (0.0-3.38)
[2018-08-16 06:54] LABS: ALB/GLOB RATIO 1.1 (1.0-2.1); ALBUMIN 2.8 g/dL (3.5-5.0); ALT/SGPT 60 U/L (21-72); AST/SGOT 54 U/L (17-59); BLOOD UREA NITROGEN 14 mg/dL (9-20); CALCIUM 7.1 mg/dl (8.6-10.4); GFR NON-AFRICAN AMERICAN > 60
--- NOTE | 2018-08-16 07:16 | CP.CCUPN ---
<Anh Quinteros - Last Filed: 08/16/18 10:33> CCU Subjective - Physician Review Events Since Last Encounter (Free Text): 08/16/18 07:14 BiPAP over night, now back on NC Subjective (Free Text): 08/16/18 07:15 Patient was seen and examined this morning. He has no acute complaints. He is breathing well, no audible wheezing. Saturating well on NC. Copious urine output and diarrhea over night. He continues to be febrile. Critical Care Time Spent (in minutes): 35 CCU Objective - Vital Signs / Intake & Output Vital Signs (Last 4 hours): Vital Signs Temp Pulse Resp BP Pulse Ox 08/16/18 06:02 58 L 21 102/55 L 96 08/16/18 05:49 99.9 F H 08/16/18 05:01 55 L 24 101/58 L 98 08/16/18 04:13 48 L 25 H 101/52 L 99 08/16/18 04:02 65 21 87/30 L 98 08/16/18 04:00 100.5 F H 08/16/18 03:49 100.5 F H 08/16/18 03:17 59 L 21 86/56 L 97 Intake and Output (Last 8hrs): Intake & Output 08/15/18 08/16/18 08/16/18 22:59 06:59 14:59 Intake Total 1042.5 1350 Output Total 1150 875 Balance -107.5 475 Weight 145 lb 4.554 oz Intake: Intake, IV Amount 762.5 650 Left Distal Port Forearm 62.5 Left Forearm 700 300 Right PICC 350 Oral 280 700 Output: Urine 1150 875 Urine, Voided 1150 875 Other: # Voids Urine, Voided 2 # Bowel Movements 1 1 - Physical Exam Head: Positive for: Atraumatic, Normocephalic Pupils: Positive for: PERRL Extroacular Muscles: Positive for: EOMI Conjunctiva: Positive for: Normal Mouth: Positive for: Moist Mucous Membranes Neck: Positive for: Normal Range of Motion Respiratory/Chest: Positive for: Clear to Auscultation. Negative for: Respiratory Distress Cardiovascular: Positive for: Regular Rate and Rhythm, Normal S1, S2, Bradycardic. Negative for: Murmurs Abdomen: Negative for: Tenderness, Distention, Peritoneal Signs Back: Negative for: CVA Tenderness Upper Extremity: Positive for: Normal Inspection Lower Extremity: Positive for: Normal Inspection Neurological: Positive for: GCS=15, CN II-XII Intact, Speech Normal Skin: Positive for: Warm, Dry, Normal Color Psychiatric: Positive for: Alert, Oriented x 3, Normal Concentration - Medications Active Medications: Active Medications Generic Name Dose Route Start Last Admin Trade Name Freq PRN Reason Stop Dose Admin Acetaminophen 650 mg 08/12/18 16:41 08/16/18 03:49 Tylenol 325mg Tab PO 650 mg Q6 PRN Administration Fever >100.4 F or Pain Albuterol/Ipratropium 3 ml 08/15/18 18:39 Duoneb 3 Mg/0.5 Mg (3 Ml) Ud INH RQ6 PRN Shortness of Breath Furosemide 40 mg 08/16/18 10:00 Lasix IVP DAILY RIRI Heparin Sodium (Porcine) 5,000 units 08/12/18 22:00 08/16/18 05:35 Heparin SC 5,000 units Q8 RIRI Administration Sodium Chloride 1,000 mls @ 75 mls/hr 08/13/18 10:11 08/15/18 17:05 Sodium Chloride 0.9% IV Not Given .[id number] RIRI Vancomycin/Sodium Chloride 1 gm in 200 mls @ 166.7 mls/hr 08/15/18 08:30 08/15/18 19:51 Vancomycin 1 Gm/Ns 200 Ml IVPB 08/20/18 08:31 166.7 mls/hr Q12H RIRI Administration Protocol Meropenem 1 gm/ Sodium 100 mls @ 100 mls/hr 08/15/18 14:00 08/16/18 05:35 Chloride IVPB 100 mls/hr Q8H RIRI Administration Protocol Gentamicin Sulfate 80 mg/ 102 mls @ 100 mls/hr 08/15/18 22:00 08/16/18 06:17 Sodium Chloride IVPB 100 mls/hr Q8H RIRI Administration Protocol Lactobacillus Acidophilus 1 cap 08/12/18 18:00 08/15/18 17:04 Bacid Acidophilus PO 1 cap BID RIRI Administration Pantoprazole Sodium 40 mg 08/15/18 13:50 Protonix Ec Tab PO DAILY RIRI Tamsulosin HCl 0.4 mg 08/15/18 18:00 08/15/18 17:04 Flomax PO 0.4 mg BID RIRI Administration - Patient Studies Lab Studies: Microbiology Studies 08/14/18 18:47 MRSA Culture - Final Naris MRSA NOT DETECTED 08/12/18 13:59 Blood Culture - Final Blood Klebsiella Pneumoniae Ssp Pneu Gram Stain - Final 08/12/18 13:59 Blood Culture - Final Blood Klebsiella Pneumoniae Ssp Pneu Gram Stain - Final Lab Studies 08/16/18 08/16/18 08/15/18 Range/Units 06:08 06:08 20:11 WBC 5.6 (4.8-10.8) K/uL RBC 3.35 L (4.40-5.90) Mil/uL Hgb 10.6 L (12.0-18.0) g/dL Hct 31.0 L (35.0-51.0) % MCV 92.5 (80.0-94.0) fL MCH 31.6 H (27.0-31.0) pg MCHC 34.2 (33.0-37.0) g/dL RDW 14.3 (11.5-14.5) % Plt Count 86 L (130-400) K/uL MPV 11.0 (7.2-11.7) fL Neut % (Auto) 58.9 (50.0-75.0) % Lymph % (Auto) 24.7 (20.0-40.0) % [place] % (Auto) 15.1 H (0.0-10.0) % Eos % (Auto) 0.9 (0.0-4.0) % Baso % (Auto) 0.4 (0.0-2.0) % Neut # (Auto) 3.3 (1.8-7.0) K/uL Lymph # (Auto) 1.4 (1.0-4.3) K/uL [place] # (Auto) 0.8 (0.0-0.8) K/uL Eos # (Auto) 0.1 (0.0-0.7) K/uL Baso # (Auto) 0.0 (0.0-0.2) K/uL Neutrophils % (Manual) (50-75) % Band Neutrophils % (0-2) % Lymphocytes % (Manual) (20-40) % Monocytes % (Manual) (0-10) % Platelet Estimate (NORMAL) RBC Morphology Puncture Site pCO2 (35-45) mm/Hg pO2 (80-100) mm/Hg HCO3 (21-28) mmol/L ABG pH (7.35-7.45) ABG Total CO2 (22-28) mmol/L ABG O2 Saturation (95-98) % ABG Base Excess (-2.0-3.0) mmol/L Huey Test ABG Potassium (3.6-5.2) mmol/L Glucose (75-110) mg/dl Lactate (0.7-2.1) mmol/L Liter Flow Sodium 137 (132-148) mmol/L Potassium 3.7 (3.6-5.2) mmol/L Chloride 108 H (98-107) mmol/L Carbon Dioxide 23 (22-30) mmol/L Anion Gap 9 L (10-20) BUN 14 (9-20) mg/dL Creatinine 0.9 (0.8-1.5) mg/dL Est GFR ( Amer) > 60 Est GFR (Non-Af Amer) > 60 Random Glucose 100 (75-110) mg/dL Lactic Acid (0.7-2.1) mmol/L Calcium 7.1 L (8.6-10.4) mg/dl Phosphorus 1.9 L 2.5 (2.5-4.5) mg/dL Magnesium 2.0 2.0 (1.6-2.3) mg/dL Total Bilirubin 0.5 (0.2-1.3) mg/dL AST 54 (17-59) U/L ALT 60 (21-72) U/L Alkaline Phosphatase 115 (38-126) U/L Total Creatine Kinase 204 H (55-170) U/L CK-MB (Mass) 2.55 (0.0-3.38) ng/mL Troponin I 0.0490 (0.00-0.120) ng/mL NT-Pro-B Natriuret Pep (0-900) pg/mL Total Protein 5.4 L (6.3-8.3) g/dL Albumin 2.8 L (3.5-5.0) g/dL Globulin 2.6 (2.2-3.9) gm/dL Albumin/Globulin Ratio 1.1 (1.0-2.1) Prostate Specific Ag (0.00-4.0) ng/mL TSH 3rd Generation (0.46-4.68) mIU/L Arterial Blood Potassium (3.6-5.2) mmol/L 08/15/18 08/15/18 08/15/18 Range/Units 20:11 15:58 14:16 WBC (4.8-10.8) K/uL RBC (4.40-5.90) Mil/uL Hgb (12.0-18.0) g/dL Hct (35.0-51.0) % MCV (80.0-94.0) fL MCH (27.0-31.0) pg MCHC (33.0-37.0) g/dL RDW (11.5-14.5) % Plt Count (130-400) K/uL MPV (7.2-11.7) fL Neut % (Auto) (50.0-75.0) % Lymph % (Auto) (20.0-40.0) % [place] % (Auto) (0.0-10.0) % Eos % (Auto) (0.0-4.0) % Baso % (Auto) (0.0-2.0) % Neut # (Auto) (1.8-7.0) K/uL Lymph # (Auto) (1.0-4.3) K/uL [place] # (Auto) (0.0-0.8) K/uL Eos # (Auto) (0.0-0.7) K/uL Baso # (Auto) (0.0-0.2) K/uL Neutrophils % (Manual) (50-75) % Band Neutrophils % (0-2) % Lymphocytes % (Manual) (20-40) % Monocytes % (Manual) (0-10) % Platelet Estimate (NORMAL) RBC Morphology Puncture Site Rra pCO2 26 L (35-45) mm/Hg pO2 72 L (80-100) mm/Hg HCO3 21.5 (21-28) mmol/L ABG pH 7.45 (7.35-7.45) ABG Total CO2 18.9 L (22-28) mmol/L ABG O2 Saturation 97.2 (95-98) % ABG Base Excess -4.3 L (-2.0-3.0) mmol/L Huey Test Pos ABG Potassium 3.9 (3.6-5.2) mmol/L Glucose 105 (75-110) mg/dl Lactate 1.2 (0.7-2.1) mmol/L Liter Flow 2.0 Sodium 138 139.0 (132-148) mmol/L Potassium 3.3 L (3.6-5.2) mmol/L Chloride 108 H 113.0 H (98-107) mmol/L Carbon Dioxide 19 L (22-30) mmol/L Anion Gap 15 (10-20) BUN 15 (9-20) mg/dL Creatinine 1.0 (0.8-1.5) mg/dL Est GFR ( Amer) > 60 Est GFR (Non-Af Amer) > 60 Random Glucose 114 H (75-110) mg/dL Lactic Acid (0.7-2.1) mmol/L Calcium 7.5 L (8.6-10.4) mg/dl Phosphorus (2.5-4.5) mg/dL Magnesium (1.6-2.3) mg/dL Total Bilirubin (0.2-1.3) mg/dL AST (17-59) U/L ALT (21-72) U/L Alkaline Phosphatase (38-126) U/L Total Creatine Kinase 267 H 282 H (55-170) U/L CK-MB (Mass) 2.93 2.59 (0.0-3.38) ng/mL Troponin I 0.0650 0.0950 (0.00-0.120) ng/mL NT-Pro-B Natriuret Pep (0-900) pg/mL Total Protein (6.3-8.3) g/dL Albumin (3.5-5.0) g/dL Globulin (2.2-3.9) gm/dL Albumin/Globulin Ratio (1.0-2.1) Prostate Specific Ag (0.00-4.0) ng/mL TSH 3rd Generation (0.46-4.68) mIU/L Arterial Blood Potassium 3.9 (3.6-5.2) mmol/L 08/15/18 08/15/18 08/15/18 Range/Units 10:00 08:20 08:20 WBC 6.7 (4.8-10.8) K/uL RBC 3.57 L (4.40-5.90) Mil/uL Hgb 11.4 L (12.0-18.0) g/dL Hct 32.7 L (35.0-51.0) % MCV 91.8 (80.0-94.0) fL MCH 31.9 H (27.0-31.0) pg MCHC 34.7 (33.0-37.0) g/dL RDW 14.3 (11.5-14.5) % Plt Count 80 L (130-400) K/uL MPV 10.4 (7.2-11.7) fL Neut % (Auto) 87.5 H (50.0-75.0) % Lymph % (Auto) 6.5 L (20.0-40.0) % [place] % (Auto) 5.4 (0.0-10.0) % Eos % (Auto) 0.3 (0.0-4.0) % Baso % (Auto) 0.3 (0.0-2.0) % Neut # (Auto) 5.8 (1.8-7.0) K/uL Lymph # (Auto) 0.4 L (1.0-4.3) K/uL [place] # (Auto) 0.4 (0.0-0.8) K/uL Eos # (Auto) 0.0 (0.0-0.7) K/uL Baso # (Auto) 0.0 (0.0-0.2) K/uL Neutrophils % (Manual) 86 H (50-75) % Band Neutrophils % 5 H (0-2) % Lymphocytes % (Manual) 5 L (20-40) % Monocytes % (Manual) 4 (0-10) % Platelet Estimate Decreased L (NORMAL) RBC Morphology Normal Puncture Site pCO2 (35-45) mm/Hg pO2 (80-100) mm/Hg HCO3 (21-28) mmol/L ABG pH (7.35-7.45) ABG Total CO2 (22-28) mmol/L ABG O2 Saturation (95-98) % ABG Base Excess (-2.0-3.0) mmol/L Huey Test ABG Potassium (3.6-5.2) mmol/L Glucose (75-110) mg/dl Lactate (0.7-2.1) mmol/L Liter Flow Sodium 139 (132-148) mmol/L Potassium 3.8 (3.6-5.2) mmol/L Chloride 111 H (98-107) mmol/L Carbon Dioxide 16 L (22-30) mmol/L Anion Gap 16 (10-20) BUN 15 (9-20) mg/dL Creatinine 0.9 (0.8-1.5) mg/dL Est GFR ( Amer) > 60 Est GFR (Non-Af Amer) > 60 Random Glucose 123 H (75-110) mg/dL Lactic Acid 1.3 (0.7-2.1) mmol/L Calcium 7.6 L (8.6-10.4) mg/dl Phosphorus 1.1 L (2.5-4.5) mg/dL Magnesium 2.0 (1.6-2.3) mg/dL Total Bilirubin 0.7 (0.2-1.3) mg/dL AST 63 H D (17-59) U/L ALT 59 (21-72) U/L Alkaline Phosphatase 130 H D (38-126) U/L Total Creatine Kinase (55-170) U/L CK-MB (Mass) (0.0-3.38) ng/mL Troponin I (0.00-0.120) ng/mL NT-Pro-B Natriuret Pep 4120 H (0-900) pg/mL Total Protein 5.8 L (6.3-8.3) g/dL Albumin 3.1 L (3.5-5.0) g/dL Globulin 2.7 (2.2-3.9) gm/dL Albumin/Globulin Ratio 1.1 (1.0-2.1) Prostate Specific Ag 7.82 H (0.00-4.0) ng/mL TSH 3rd Generation 2.30 (0.46-4.68) mIU/L Arterial Blood Potassium (3.6-5.2) mmol/L Laboratory Results - last 24 hr 08/15/18 08/15/18 08/15/18 08:20 08:20 10:00 WBC 6.7 RBC 3.57 L Hgb 11.4 L Hct 32.7 L MCV 91.8 MCH 31.9 H MCHC 34.7 RDW 14.3 Plt Count 80 L MPV 10.4 Neut % (Auto) 87.5 H Lymph % (Auto) 6.5 L [place] % (Auto) 5.4 Eos % (Auto) 0.3 Baso % (Auto) 0.3 Neut # (Auto) 5.8 Lymph # (Auto) 0.4 L [place] # (Auto) 0.4 Eos # (Auto) 0.0 Baso # (Auto) 0.0 Neutrophils % (Manual) 86 H Band Neutrophils % 5 H Lymphocytes % (Manual) 5 L Monocytes % (Manual) 4 Platelet Estimate Decreased L RBC Morphology Normal Puncture Site pCO2 pO2 HCO3 ABG pH ABG Total CO2 ABG O2 Saturation ABG Base Excess Huey Test ABG Potassium Glucose Lactate Liter Flow Sodium 139 Potassium 3.8 Chloride 111 H Carbon Dioxide 16 L Anion Gap 16 BUN 15 Creatinine 0.9 Est GFR ( Amer) > 60 Est GFR (Non-Af Amer) > 60 Random Glucose 123 H Lactic Acid 1.3 Calcium 7.6 L Phosphorus 1.1 L Magnesium 2.0 Total Bilirubin 0.7 AST 63 H D ALT 59 Alkaline Phosphatase 130 H D Total Creatine Kinase CK-MB (Mass) Troponin I NT-Pro-B Natriuret Pep 4120 H Total Protein 5.8 L Albumin 3.1 L Globulin 2.7 Albumin/Globulin Ratio 1.1 Prostate Specific Ag 7.82 H TSH 3rd Generation 2.30 Arterial Blood Potassium 08/15/18 08/15/18 08/15/18 14:16 15:58 20:11 WBC RBC Hgb Hct MCV MCH MCHC RDW Plt Count MPV Neut % (Auto) Lymph % (Auto) [place] % (Auto) Eos % (Auto) Baso % (Auto) Neut # (Auto) Lymph # (Auto) [place] # (Auto) Eos # (Auto) Baso # (Auto) Neutrophils % (Manual) Band Neutrophils % Lymphocytes % (Manual) Monocytes % (Manual) Platelet Estimate RBC Morphology Puncture Site Rra pCO2 26 L pO2 72 L HCO3 21.5 ABG pH 7.45 ABG Total CO2 18.9 L ABG O2 Saturation 97.2 ABG Base Excess -4.3 L Huey Test Pos ABG Potassium 3.9 Glucose 105 Lactate 1.2 Liter Flow 2.0 Sodium 139.0 138 Potassium 3.3 L Chloride 113.0 H 108 H Carbon Dioxide 19 L Anion Gap 15 BUN 15 Creatinine 1.0 Est GFR ( Amer) > 60 Est GFR (Non-Af Amer) > 60 Random Glucose 114 H Lactic Acid Calcium 7.5 L Phosphorus Magnesium Total Bilirubin AST ALT Alkaline Phosphatase Total Creatine Kinase 282 H 267 H CK-MB (Mass) 2.59 2.93 Troponin I 0.0950 0.0650 NT-Pro-B Natriuret Pep Total Protein Albumin Globulin Albumin/Globulin Ratio Prostate Specific Ag TSH 3rd Generation Arterial Blood Potassium 3.9 08/15/18 08/16/18 08/16/18 20:11 06:08 06:08 WBC 5.6 RBC 3.35 L Hgb 10.6 L Hct 31.0 L MCV 92.5 MCH 31.6 H MCHC 34.2 RDW 14.3 Plt Count 86 L MPV 11.0 Neut % (Auto) 58.9 Lymph % (Auto) 24.7 [place] % (Auto) 15.1 H Eos % (Auto) 0.9 Baso % (Auto) 0.4 Neut # (Auto) 3.3 Lymph # (Auto) 1.4 [place] # (Auto) 0.8 Eos # (Auto) 0.1 Baso # (Auto) 0.0 Neutrophils % (Manual) Band Neutrophils % Lymphocytes % (Manual) Monocytes % (Manual) Platelet Estimate RBC Morphology Puncture Site pCO2 pO2 HCO3 ABG pH ABG Total CO2 ABG O2 Saturation ABG Base Excess Huey Test ABG Potassium Glucose Lactate Liter Flow Sodium 137 Potassium 3.7 Chloride 108 H Carbon Dioxide 23 Anion Gap 9 L BUN 14 Creatinine 0.9 Est GFR ( Amer) > 60 Est GFR (Non-Af Amer) > 60 Random Glucose 100 Lactic Acid Calcium 7.1 L Phosphorus 2.5 1.9 L Magnesium 2.0 2.0 Total Bilirubin 0.5 AST 54 ALT 60 Alkaline Phosphatase 115 Total Creatine Kinase 204 H CK-MB (Mass) 2.55 Troponin I 0.0490 NT-Pro-B Natriuret Pep Total Protein 5.4 L Albumin 2.8 L Globulin 2.6 Albumin/Globulin Ratio 1.1 Prostate Specific Ag TSH 3rd Generation Arterial Blood Potassium EKG/Cardiology Studies: Cardiology / EKG Studies 08/15/18 10:52 EKG [ELECTROCARDIOGRAM] Routine Comment: Mode Of Transportation: Reason For Exam: bradycardia Review of Systems - Review of Systems All systems: reviewed and no additional remarkable complaints except - Constitutional Constitutional: Fever. absent: Chills, Sweats - EENT Eyes: UNREMARKABLE. absent: Change in Vision Ears: UNREMARKABLE Nose/Mouth/Throat: UNREMARKABLE. absent: Nasal Congestion, Sore Throat - Cardiovascular Cardiovascular: UNREMARKABLE. absent: Chest Pain, Dyspnea, Palpitations - Respiratory Respiratory: UNREMARKABLE. absent: Cough, Dyspnea, Wheezing - Gastrointestinal Gastrointestinal: Diarrhea. absent: Abdominal Pain, Constipation, Nausea, Vomiting - Genitourinary Genitourinary: absent: Dysuria, Hematuria - Musculoskeletal Musculoskeletal: UNREMARKABLE - Integumentary Integumentary: UNREMARKABLE. absent: Lesions - Neurological Neurological: UNREMARKABLE - Psychiatric Psychiatric: UNREMARKABLE - Endocrine Endocrine: UNREMARKABLE - Hematologic/Lymphatic Hematologic: UNREMARKABLE Critical Care Progress Note - Extremities/Vascular Does the Patient have a Central Venous Catheter?: No Does the Patient need a Central Venous Catheter?: No Does the Patient have a Strauss Catheter?: No Does the Patient need a Strauss Catheter?: No - Prophylaxis GI Prophylaxis GI: PPI - Prophylaxis DVT Prophylaxis DVT: Heparin SQ - Nutrition Nutrition: Nutrition Category Date Time Status Heart Healthy Diet [DIET] Diets 08/15/18 Dinner Active Assessment/Plan - Assessment and Plan (Free Text) Assessment: Patient is a 77 yo male without significant PMH who presented with fever and abdominal pain. Patient was admitted for pyelonephritis. [employer] was called on 08/12 for hypotension and patient was transferred to the ICU. He was treated with broad spectrum IV abx and his vitals remained stable, so he was transferred back to med/surg over the weekend. On 08/15, an [employer] was called for respiratory distress. Patient was transferred back to the ICU for PRN BiPAP, bradycardia, and hypotension. Patient's urine and blood cultures grew Klebsiella. Patient is now saturating well on NC. He continues to be febrile. His b/l pleural effusions are decreasing. Plan: Neuro: - No acute issues - Monitor mental status CV: Pericardial effusion - CT chest/abd/pelvis 08/15: -[facility] pericardial effusion - Echo 08/12: EF >70%, no significant abnormalities - Repeat Echo: small concentric pericardial effusion, no tamponade Bradycardia - EKG: low voltage, sinus bradycardia - KENNEDY x3 negative - TSH wnl - Cardiology consulted ([facility]) Pulm: - [employer] for respiratory distress on 08/15- resolved - ABG 7AM: pH 7.16, pCO2 47, pO2 163, lactate 6 - ABG 4PM: pH 7.45, pCO2 26, pO2 72 - Maintain spO2>92%- NC or BiPAP PRN - CT chest/abd/pelvis 08/15: moderately large b/l pleural effusions - CXR 08/16: pleural effusions improved - Discontinue IVF GI: - Diarrhea - C. diff pending - Florastor 250 mg PO BID - Heart healthy diet : - CT A/P 08/12: no urolithiasis or evidence of recently passed calculus, bladder wall thickening - CT chest/abd/pelvis 08/15: b/l renal cysts, no change in liver cyst, urinary bladder wall thickening - BUN, Cr wnl - I's & O's - Replete electrolytes PRN - Flomax 0.4 mg PO BID - PSA elevated (7.82) - Urology consulted (Kamala Mcfadden) - Nephrology consulted (Rikki) Endo: - Maintain euglycemia - TSH wnl Heme: - Anemia- Hgb stable (11.4) - Monitor H&H ID: Septic shock (bacteremia)- suspect / cystitis - [employer] for hypotension on 08/12 - Off pressors - Febrile- Tmax 103 - Tylenol 650 mg PO Q6H PRN - Lactate elevated (6) - Procal elevated (31.91) - Leukocytosis resolved - Blood, urine Cx- Klebsiella pneumoniae - Gentamicin 80 mg IV Q8H - Meropenem 1 g IV Q8H - Vancomycin 1 g IV Q12H - F/u trough - Florastor 250 mg PO BID - ID consulted (El) Ppx: VTE: SCDs, heparin 5000 units SC Q8H GI: PTX 40 mg PO daily PT Code status: full code Case was discussed with attending, Dr. Cuenca. PGY-1 Anh Quinteros D.O. <Fidencio Cuenca - Last Filed: 08/16/18 17:12> CCU Objective - Vital Signs / Intake & Output Vital Signs (Last 4 hours): Vital Signs Temp Pulse Resp BP Pulse Ox 08/16/18 16:01 69 32 H 103/65 97 08/16/18 16:00 99.5 F 67 29 H 98 08/16/18 15:02 54 L 24 98/62 L 08/16/18 15:00 53 L 27 H 08/16/18 14:02 71 30 H 101/45 L 80 L 08/16/18 14:00 73 28 H Intake and Output (Last 8hrs): Intake & Output 08/16/18 08/16/18 08/16/18 06:59 14:59 22:59 Intake Total 1350 1540 100 Output Total 875 500 100 Balance 475 1040 0 Weight 145 lb 4.554 oz Intake: Intake, IV Amount 650 300 100 Left Forearm 300 Right PICC 350 300 100 Oral 700 1240 0 Output: Urine 875 500 100 Urine, Voided 875 500 100 Other: # Bowel Movements 1 0 0 - Medications Active Medications: Active Medications Generic Name Dose Route Start Last Admin Trade Name Freq PRN Reason Stop Dose Admin Acetaminophen 650 mg 08/12/18 16:41 08/16/18 03:49 Tylenol 325mg Tab PO 650 mg Q6 PRN Administration Fever >100.4 F or Pain Albuterol/Ipratropium 3 ml 08/15/18 18:39 Duoneb 3 Mg/0.5 Mg (3 Ml) Ud INH RQ6 PRN Shortness of Breath Heparin Sodium (Porcine) 5,000 units 08/12/18 22:00 08/16/18 14:21 Heparin SC 5,000 units Q8 RIRI Administration Sodium Chloride 1,000 mls @ 75 mls/hr 08/13/18 10:11 08/15/18 17:05 Sodium Chloride 0.9% IV Not Given .[id number] RIRI Meropenem 1 gm/ Sodium 100 mls @ 100 mls/hr 08/15/18 14:00 08/16/18 14:21 Chloride IVPB 100 mls/hr Q8H RIRI Administration Protocol Gentamicin Sulfate 80 mg/ 102 mls @ 100 mls/hr 08/15/18 22:00 08/16/18 14:26 Sodium Chloride IVPB 100 mls/hr Q8H RIRI Administration Protocol Vancomycin/Sodium Chloride 1 gm in 200 mls @ 166.7 mls/hr 08/16/18 15:30 08/16/18 15:50 Vancomycin 1 Gm/Ns 200 Ml IVPB 08/21/18 15:31 166.7 mls/hr Q24H RIRI Administration Protocol Lactobacillus Acidophilus 1 cap 08/12/18 18:00 08/16/18 09:42 Bacid Acidophilus PO 1 cap BID RIRI Administration Pantoprazole Sodium 40 mg 08/15/18 13:50 08/16/18 09:42 Protonix Ec Tab PO 40 mg DAILY RIRI Administration Tamsulosin HCl 0.4 mg 08/15/18 18:00 08/16/18 09:42 Flomax PO 0.4 mg BID RIRI Administration - Patient Studies Lab Studies: Microbiology Studies 08/15/18 09:45 Blood Culture - Preliminary Blood NO GROWTH AFTER 24 HOURS 08/15/18 08:20 Blood Culture - Preliminary Blood NO GROWTH AFTER 24 HOURS 08/14/18 18:47 MRSA Culture - Final Naris MRSA NOT DETECTED Lab Studies 08/16/18 08/16/18 08/16/18 Range/Units 11:03 06:08 06:08 WBC 5.6 (4.8-10.8) K/uL RBC 3.35 L (4.40-5.90) Mil/uL Hgb 10.6 L (12.0-18.0) g/dL Hct 31.0 L (35.0-51.0) % MCV 92.5 (80.0-94.0) fL MCH 31.6 H (27.0-31.0) pg MCHC 34.2 (33.0-37.0) g/dL RDW 14.3 (11.5-14.5) % Plt Count 86 L (130-400) K/uL MPV 11.0 (7.2-11.7) fL Neut % (Auto) 58.9 (50.0-75.0) % Lymph % (Auto) 24.7 (20.0-40.0) % [place] % (Auto) 15.1 H (0.0-10.0) % Eos % (Auto) 0.9 (0.0-4.0) % Baso % (Auto) 0.4 (0.0-2.0) % Neut # (Auto) 3.3 (1.8-7.0) K/uL Lymph # (Auto) 1.4 (1.0-4.3) K/uL [place] # (Auto) 0.8 (0.0-0.8) K/uL Eos # (Auto) 0.1 (0.0-0.7) K/uL Baso # (Auto) 0.0 (0.0-0.2) K/uL Sodium 137 (132-148) mmol/L Potassium 3.7 (3.6-5.2) mmol/L Chloride 108 H (98-107) mmol/L Carbon Dioxide 23 (22-30) mmol/L Anion Gap 9 L (10-20) BUN 14 (9-20) mg/dL Creatinine 0.9 (0.8-1.5) mg/dL Est GFR ( Amer) > 60 Est GFR (Non-Af Amer) > 60 Random Glucose 100 (75-110) mg/dL Calcium 7.1 L (8.6-10.4) mg/dl Phosphorus 1.9 L (2.5-4.5) mg/dL Magnesium 2.0 (1.6-2.3) mg/dL Total Bilirubin 0.5 (0.2-1.3) mg/dL AST 54 (17-59) U/L ALT 60 (21-72) U/L Alkaline Phosphatase 115 (38-126) U/L Total Creatine Kinase 204 H (55-170) U/L CK-MB (Mass) 2.55 (0.0-3.38) ng/mL Troponin I 0.0490 (0.00-0.120) ng/mL Total Protein 5.4 L (6.3-8.3) g/dL Albumin 2.8 L (3.5-5.0) g/dL Globulin 2.6 (2.2-3.9) gm/dL Albumin/Globulin Ratio 1.1 (1.0-2.1) C. difficile Ag & Toxin Negative (NEGATIVE) 08/15/18 08/15/18 Range/Units 20:11 20:11 WBC (4.8-10.8) K/uL RBC (4.40-5.90) Mil/uL Hgb (12.0-18.0) g/dL Hct (35.0-51.0) % MCV (80.0-94.0) fL MCH (27.0-31.0) pg MCHC (33.0-37.0) g/dL RDW (11.5-14.5) % Plt Count (130-400) K/uL MPV (7.2-11.7) fL Neut % (Auto) (50.0-75.0) % Lymph % (Auto) (20.0-40.0) % [place] % (Auto) (0.0-10.0) % Eos % (Auto) (0.0-4.0) % Baso % (Auto) (0.0-2.0) % Neut # (Auto) (1.8-7.0) K/uL Lymph # (Auto) (1.0-4.3) K/uL [place] # (Auto) (0.0-0.8) K/uL Eos # (Auto) (0.0-0.7) K/uL Baso # (Auto) (0.0-0.2) K/uL Sodium 138 (132-148) mmol/L Potassium 3.3 L (3.6-5.2) mmol/L Chloride 108 H (98-107) mmol/L Carbon Dioxide 19 L (22-30) mmol/L Anion Gap 15 (10-20) BUN 15 (9-20) mg/dL Creatinine 1.0 (0.8-1.5) mg/dL Est GFR ( Amer) > 60 Est GFR (Non-Af Amer) > 60 Random Glucose 114 H (75-110) mg/dL Calcium 7.5 L (8.6-10.4) mg/dl Phosphorus 2.5 (2.5-4.5) mg/dL Magnesium 2.0 (1.6-2.3) mg/dL Total Bilirubin (0.2-1.3) mg/dL AST (17-59) U/L ALT (21-72) U/L Alkaline Phosphatase (38-126) U/L Total Creatine Kinase 267 H (55-170) U/L CK-MB (Mass) 2.93 (0.0-3.38) ng/mL Troponin I 0.0650 (0.00-0.120) ng/mL Total Protein (6.3-8.3) g/dL Albumin (3.5-5.0) g/dL Globulin (2.2-3.9) gm/dL Albumin/Globulin Ratio (1.0-2.1) C. difficile Ag & Toxin (NEGATIVE) Laboratory Results - last 24 hr 08/15/18 08/15/18 08/16/18 20:11 20:11 06:08 WBC RBC Hgb Hct MCV MCH MCHC RDW Plt Count MPV Neut % (Auto) Lymph % (Auto) [place] % (Auto) Eos % (Auto) Baso % (Auto) Neut # (Auto) Lymph # (Auto) [place] # (Auto) Eos # (Auto) Baso # (Auto) Sodium 138 137 Potassium 3.3 L 3.7 Chloride 108 H 108 H Carbon Dioxide 19 L 23 Anion Gap 15 9 L BUN 15 14 Creatinine 1.0 0.9 Est GFR ( Amer) > 60 > 60 Est GFR (Non-Af Amer) > 60 > 60 Random Glucose 114 H 100 Calcium 7.5 L 7.1 L Phosphorus 2.5 1.9 L Magnesium 2.0 2.0 Total Bilirubin 0.5 AST 54 ALT 60 Alkaline Phosphatase 115 Total Creatine Kinase 267 H 204 H CK-MB (Mass) 2.93 2.55 Troponin I 0.0650 0.0490 Total Protein 5.4 L Albumin 2.8 L Globulin 2.6 Albumin/Globulin Ratio 1.1 C. difficile Ag & Toxin 08/16/18 08/16/18 06:08 11:03 WBC 5.6 RBC 3.35 L Hgb 10.6 L Hct 31.0 L MCV 92.5 MCH 31.6 H MCHC 34.2 RDW 14.3 Plt Count 86 L MPV 11.0 Neut % (Auto) 58.9 Lymph % (Auto) 24.7 [place] % (Auto) 15.1 H Eos % (Auto) 0.9 Baso % (Auto) 0.4 Neut # (Auto) 3.3 Lymph # (Auto) 1.4 [place] # (Auto) 0.8 Eos # (Auto) 0.1 Baso # (Auto) 0.0 Sodium Potassium Chloride Carbon Dioxide Anion Gap BUN Creatinine Est GFR ( Amer) Est GFR (Non-Af Amer) Random Glucose Calcium Phosphorus Magnesium Total Bilirubin AST ALT Alkaline Phosphatase Total Creatine Kinase CK-MB (Mass) Troponin I Total Protein Albumin Globulin Albumin/Globulin Ratio C. difficile Ag & Toxin Negative Critical Care Progress Note - Nutrition Nutrition: Nutrition Category Date Time Status Heart Healthy Diet [DIET] Diets 08/15/18 Dinner Active Attending/Attestation - Attestation I have personally seen and examined this patient.: Yes I have fully participated in the care of the patient.: Yes I have reviewed all pertinent clinical information: Yes Notes (Text): 08/16/18 17:11 patient seen and examined in the intensive care unit. Condition improving patient is out of bed to chair Continue antibiotics for Klebsiella bacteremia Diuretics Nebulizer treatment
[2018-08-16] MEDS: Vancomycin 1 gm/NS 200 ml 1 GM/200 ML BAG IVPB SCH ×2 (07:57→15:50)
[2018-08-16] MEDS: Lactobacillus Acidophilus 500 MU Cap PO SCH ×2 (09:42→17:12)
[2018-08-16] MEDS: Pantoprazole 40 mg EC Tab PO SCH (09:42)
--- NOTE | 2018-08-16 10:03 | PN ---
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 He has been on meropenem. He received a genta dose before. His blood cultures have revealed Klebsiella. He somehow had an PARKING METER SERVICER this morning with respiratory distress. The patient's ABG was noted; pH had dropped to 7.1 something. He was hypotensive. Pulse was 100, blood pressure . The patient is in ICU now. He had a fever of low grade. They repeated cultures as well as the CAT scan. He did get one dose of amikacin. We have increased the Merrem to 1 g every 8 hours. He will be getting gentamicin from [facility]. PHYSICAL EXAMINATION VITAL SIGNS: T-max is 100.2, heart rate is 51, blood pressure is 109/64, respirations are 26. GENERAL: His family is at the bedside. He denies any pain at this time. HEENT: Head is atraumatic and normocephalic. NECK: Supple. LUNGS: Occasional rhonchi bilaterally. HEART: S1, S2 is bradycardic. ABDOMEN: Soft, nontender. No guarding, no rigidity present. EXTREMITIES: No edema, clubbing or cyanosis. LABORATORY DATA: Labs are noted. White count is 6.7, hemoglobin 11.4. His bands are 5. Chemistries: Creatinine is 0.9 and CO2 is 16. They repeated the CAT scan which still shows the same cystitis and no obstruction, shows a cyst in the kidney as well as in the liver. PLAN: So at this time, I have to add gentamicin even though at one time he had a creatinine increase. They are restricting some volume as his x-ray showed congestion, repeating the ABG. The end touching machine operator is following. We will follow with them and we will see how the creatinine is tomorrow and may have to adjust be gentamicin again. We will follow. Rajesh Gallegos MD
--- NOTE | 2018-08-16 10:09 | RAD ---
Date of service: 08/16/2018 HISTORY: pleural, pericardial effusions COMPARISON: 08/15/2018 FINDINGS: LUNGS: Opacity medial right lung base. Possible early pneumonia. Follow-up advised. No other abnormal opacity elsewhere. PLEURA: No significant pleural effusion identified, no pneumothorax apparent. CARDIOVASCULAR: No aortic atherosclerotic calcification present. Normal cardiac size. No congestive change. Right PICC catheter unchanged in position, terminating the level of the cavoatrial junction. OSSEOUS STRUCTURES: No significant abnormalities. VISUALIZED UPPER ABDOMEN: Normal. OTHER FINDINGS: None. IMPRESSION: Medial right basilar opacity. Possible pneumonia. Follow-up advised.
[2018-08-16] MEDS ORDERED: Potassium & Sodium Phosphate PO ONE ×2 (10:13→11:15)
--- NOTE | 2018-08-16 10:19 | CP.PCM.PN ---
Subjective - Date & Time of Evaluation Date of Evaluation: 08/16/18 Time of Evaluation: 10:17 - Subjective Subjective: pt still in icu feels beter less sob less fever no wheesing Objective - Vital Signs/Intake and Output Vital Signs (last 24 hours): Temp Pulse Resp BP Pulse Ox 99.3 F 50 L 25 H 95/56 L 98 08/16/18 08:00 08/16/18 08:01 08/16/18 08:01 08/16/18 08:01 08/16/18 08:01 Intake and Output: 08/16/18 08/16/18 06:59 18:59 Intake Total 1850 200 Output Total 1925 0 Balance -75 200 - Medications Medications: Current Medications Acetaminophen (Tylenol 325mg Tab) 650 mg PO Q6 PRN PRN Reason: Fever >100.4 F or Pain Last Admin: 08/16/18 03:49 Dose: 650 mg Albuterol/Ipratropium (Duoneb 3 Mg/0.5 Mg (3 Ml) Ud) 3 ml INH RQ6 PRN PRN Reason: Shortness of Breath Heparin Sodium (Porcine) (Heparin) 5,000 units SC Q8 RIRI Last Admin: 08/16/18 05:35 Dose: 5,000 units Sodium Chloride (Sodium Chloride 0.9%) 1,000 mls @ 75 mls/hr IV .[id number] RIRI Last Admin: 08/15/18 17:05 Dose: Not Given Vancomycin/Sodium Chloride (Vancomycin 1 Gm/Ns 200 Ml) 1 gm in 200 mls @ 166.7 mls/hr IVPB Q12H RIRI; Protocol Stop: 08/20/18 08:31 Last Admin: 08/16/18 07:57 Dose: 166.7 mls/hr Meropenem 1 gm/ Sodium (Chloride) 100 mls @ 100 mls/hr IVPB Q8H RIRI; Protocol Last Admin: 08/16/18 05:35 Dose: 100 mls/hr Gentamicin Sulfate 80 mg/ (Sodium Chloride) 102 mls @ 100 mls/hr IVPB Q8H RIRI; Protocol Last Admin: 08/16/18 06:17 Dose: 100 mls/hr Lactobacillus Acidophilus (Bacid Acidophilus) 1 cap PO BID RIRI Last Admin: 08/16/18 09:42 Dose: 1 cap Pantoprazole Sodium (Protonix Ec Tab) 40 mg PO DAILY [facility] Last Admin: 08/16/18 09:42 Dose: 40 mg Potassium Phos/Sodium Phos (Neutra-Phos) 1 pkt PO ONCE ONE Stop: 08/16/18 10:14 Potassium Phos/Sodium Phos (Neutra-Phos) 1 pkt PO ONCE ONE Stop: 08/16/18 10:15 Tamsulosin HCl (Flomax) 0.4 mg PO BID [facility] Last Admin: 08/16/18 09:42 Dose: 0.4 mg - Labs Labs: 08/16/18 06:08 08/16/18 06:08 - Constitutional Appears: Non-toxic - Head Exam Head Exam: NORMAL INSPECTION - Eye Exam Eye Exam: Normal appearance Pupil Exam: NORMAL ACCOMODATION - ENT Exam ENT Exam: Mucous Membranes Moist - Neck Exam Neck Exam: Full ROM - Respiratory Exam Respiratory Exam: Decreased Breath Sounds - Cardiovascular Exam Cardiovascular Exam: Tachycardia - GI/Abdominal Exam GI & Abdominal Exam: Normal Bowel Sounds - Exam Exam: NORMAL INSPECTION - Extremities Exam Extremities Exam: Normal Capillary Refill - Back Exam Back Exam: NORMAL INSPECTION - Neurological Exam Neurological Exam: Alert, Awake, Oriented x3 - Psychiatric Exam Psychiatric exam: Normal Affect - Skin Skin Exam: Pallor Assessment and Plan - Assessment and Plan (Free Text) Assessment: less respiratory distress less fever hypotension pyelonephritis bilateral pleural efusion ht f Plan: cont as per icu orders
--- NOTE | 2018-08-16 10:56 | CP.PCM.PN ---
Subjective - Date & Time of Evaluation Date of Evaluation: 08/16/18 Time of Evaluation: 10:55 - Subjective Subjective: renal Follow up note hpi: patient admitted with acute abdominal pain, he has pmh of cad, ?DM, htn,no prior renal disease. 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 meds reviewed labs and imaging reviewed vitals reviewed Subjective: Noted events overnight. Patients feels better Denies chest pain, palpitation, improved shortness of breath, denies leg swelling. All other negative Physical Examination: family bedside General Appearance: Comfortable, in no acute respiratory distress, co-operative . Vitals reviewed and noted as below Head; Atraumatic, normocephalic ENT: no ulcers no thrush. Tongue is midline. Oropharynx: no rash or ulcers. EYES: Pupils are equal, round and reactive to light accommodation. Eye muscles and extraocular movement intact. Sclera is anicteric. Neck; supple no lymphadenopathy, no thyromegaly or bruit Lungs: Normal respiratory rate/effort. Breath sounds bilateral decreased at bases Heart: Normal rate. s1s2 normal. No rub or gallop. Extremities: no edema. No varicose veins Neurological: Patient is alert, awake and oriented to person, place and time. No focal deficit. Strength bilateral appropriate and equal Skin: Warm and dry. Normal turgor. No rash. Palpitation: Normal elasticity for age Abdomen: Abdomen is soft. Bowel sounds +. There is no abdominal tenderness, no guarding/rigidity no organomegaly Psych: normal insight and normal affect/mood MSK: no joint tenderness or swelling. Digits and nails normal, no deformity : kidney or bladder not palpable A&P: critical ASHLIE/urosepsis/UTI/shock/hypophsphatemia/anemia/lactic acidosis/pleural effusion; ashlie likely prerenal from sepsis syndrome from uti: resolved continue with meds/abx for gfr >60 supplements lytes as needed. maintain hemodynamic stable will sign off and follow further PRN basis had d/w team and family Objective - Vital Signs/Intake and Output Vital Signs (last 24 hours): Temp Pulse Resp BP Pulse Ox 99.3 F 50 L 25 H 95/56 L 98 08/16/18 08:00 08/16/18 08:01 08/16/18 08:01 08/16/18 08:01 08/16/18 08:01 Intake and Output: 08/16/18 08/16/18 06:59 18:59 Intake Total 1850 200 Output Total 1925 0 Balance -75 200 - Medications Medications: Current Medications Acetaminophen (Tylenol 325mg Tab) 650 mg PO Q6 PRN PRN Reason: Fever >100.4 F or Pain Last Admin: 08/16/18 03:49 Dose: 650 mg Albuterol/Ipratropium (Duoneb 3 Mg/0.5 Mg (3 Ml) Ud) 3 ml INH RQ6 PRN PRN Reason: Shortness of Breath Heparin Sodium (Porcine) (Heparin) 5,000 units SC Q8 RIRI Last Admin: 08/16/18 05:35 Dose: 5,000 units Sodium Chloride (Sodium Chloride 0.9%) 1,000 mls @ 75 mls/hr IV .[id number] RIRI Last Admin: 08/15/18 17:05 Dose: Not Given Vancomycin/Sodium Chloride (Vancomycin 1 Gm/Ns 200 Ml) 1 gm in 200 mls @ 166.7 mls/hr IVPB Q12H RIRI; Protocol Stop: 08/20/18 08:31 Last Admin: 08/16/18 07:57 Dose: 166.7 mls/hr Meropenem 1 gm/ Sodium (Chloride) 100 mls @ 100 mls/hr IVPB Q8H RIRI; Protocol Last Admin: 08/16/18 05:35 Dose: 100 mls/hr Gentamicin Sulfate 80 mg/ (Sodium Chloride) 102 mls @ 100 mls/hr IVPB Q8H RIRI; Protocol Last Admin: 08/16/18 06:17 Dose: 100 mls/hr Lactobacillus Acidophilus (Bacid Acidophilus) 1 cap PO BID [facility] Last Admin: 08/16/18 09:42 Dose: 1 cap Pantoprazole Sodium (Protonix Ec Tab) 40 mg PO DAILY [facility] Last Admin: 08/16/18 09:42 Dose: 40 mg Potassium Phos/Sodium Phos (Neutra-Phos) 1 pkt PO ONCE ONE Stop: 08/16/18 10:14 Potassium Phos/Sodium Phos (Neutra-Phos) 1 pkt PO ONCE ONE Stop: 08/16/18 10:15 Tamsulosin HCl (Flomax) 0.4 mg PO BID [facility] Last Admin: 08/16/18 09:42 Dose: 0.4 mg - Labs Labs: 08/16/18 06:08 08/16/18 06:08
--- NOTE | 2018-08-16 15:23 | CP.PCM.PN ---
Subjective - Date & Time of Evaluation Date of Evaluation: 08/16/18 Time of Evaluation: 15:00 - Subjective Subjective: dictated Objective - Vital Signs/Intake and Output Vital Signs (last 24 hours): Temp Pulse Resp BP Pulse Ox 98.3 F 71 30 H 101/45 L 80 L 08/16/18 12:00 08/16/18 14:02 08/16/18 14:02 08/16/18 14:02 08/16/18 14:02 Intake and Output: 08/16/18 08/16/18 06:59 18:59 Intake Total 1850 1540 Output Total 1925 500 Balance -75 1040 - Medications Medications: Current Medications Acetaminophen (Tylenol 325mg Tab) 650 mg PO Q6 PRN PRN Reason: Fever >100.4 F or Pain Last Admin: 08/16/18 03:49 Dose: 650 mg Albuterol/Ipratropium (Duoneb 3 Mg/0.5 Mg (3 Ml) Ud) 3 ml INH RQ6 PRN PRN Reason: Shortness of Breath Heparin Sodium (Porcine) (Heparin) 5,000 units SC Q8 RIRI Last Admin: 08/16/18 14:21 Dose: 5,000 units Sodium Chloride (Sodium Chloride 0.9%) 1,000 mls @ 75 mls/hr IV .[id number] RIRI Last Admin: 08/15/18 17:05 Dose: Not Given Vancomycin/Sodium Chloride (Vancomycin 1 Gm/Ns 200 Ml) 1 gm in 200 mls @ 166.7 mls/hr IVPB Q12H RIRI; Protocol Stop: 08/20/18 08:31 Last Admin: 08/16/18 07:57 Dose: 166.7 mls/hr Meropenem 1 gm/ Sodium (Chloride) 100 mls @ 100 mls/hr IVPB Q8H RIRI; Protocol Last Admin: 08/16/18 14:21 Dose: 100 mls/hr Gentamicin Sulfate 80 mg/ (Sodium Chloride) 102 mls @ 100 mls/hr IVPB Q8H RIRI; Protocol Last Admin: 08/16/18 14:26 Dose: 100 mls/hr Lactobacillus Acidophilus (Bacid Acidophilus) 1 cap PO BID RRII Last Admin: 08/16/18 09:42 Dose: 1 cap Pantoprazole Sodium (Protonix Ec Tab) 40 mg PO DAILY [facility] Last Admin: 08/16/18 09:42 Dose: 40 mg Tamsulosin HCl (Flomax) 0.4 mg PO BID RIRI Last Admin: 08/16/18 09:42 Dose: 0.4 mg - Labs Labs: 08/16/18 06:08 08/16/18 06:08
--- NOTE | 2018-08-16 17:11 | CARD ---
APPROVED REPORT Date of service: 08/15/2018 EKG Measurement Heart [id number] <Conclusion> Sinus bradycardia Low voltage QRS Borderline ECG
[2018-08-16] MEDS: Albuterol-Ipratrop 3 mg / 0.5 (3 ml) UD INH PRN (21:45)
--- NOTE | 2018-08-16 23:24 | CP.PCM.CON ---
History of Present Illness - History of Present Illness History of Present Illness: cc: abd pain uti Past Patient History - Infectious Disease Hx of Infectious Diseases: None - Tetanus Immunizations Tetanus Immunization: Unknown - Past Medical History & Family History Past Medical History?: Yes Past Family History: Reviewed and not pertinent - Past Social History Smoking Status: Former Smoker Chewing Tobacco Use: No Cigar Use: No Alcohol: None Drugs: Denies - CARDIAC Hx Cardiac Disorders: Yes Other/Comment: CT shows pericardial effusion - PULMONARY Hx Respiratory Disorders: Yes Hx Bronchitis: Yes - NEUROLOGICAL Hx Neurological Disorder: No - HEENT Hx HEENT Problems: No - RENAL Hx Chronic Kidney Disease: No - ENDOCRINE/METABOLIC Hx Endocrine Disorders: No - HEMATOLOGICAL/ONCOLOGICAL Hx Blood Disorders: No - INTEGUMENTARY Hx Dermatological Problems: No - MUSCULOSKELETAL/RHEUMATOLOGICAL Hx Musculoskeletal Disorders: No Hx Falls: No - GASTROINTESTINAL Hx Gastrointestinal Disorders: Yes Hx Gastritis: Yes - GENITOURINARY/GYNECOLOGICAL Hx Genitourinary Disorders: No - PSYCHIATRIC Hx Psychophysiologic Disorder: No Hx Substance Use: No - SURGICAL HISTORY Hx Surgeries: No - ANESTHESIA Hx Anesthesia: No Hx Anesthesia Reactions: No Hx Malignant Hyperthermia: No Has any member of the family had a problem w/ anesthesia?: No Meds Allergies/Adverse Reactions: Allergies Allergy/AdvReac Type Severity Reaction Status Date / Time No Known Allergies Allergy Verified 08/12/18 10:30 - Medications Medications: Current Medications Acetaminophen (Tylenol 325mg Tab) 650 mg PO Q6 PRN PRN Reason: Fever >100.4 F or Pain Last Admin: 08/16/18 21:07 Dose: 650 mg Albuterol/Ipratropium (Duoneb 3 Mg/0.5 Mg (3 Ml) Ud) 3 ml INH RQ6 PRN PRN Reason: Shortness of Breath Last Admin: 08/16/18 21:45 Dose: 3 ml Heparin Sodium (Porcine) (Heparin) 5,000 units SC Q8 RIRI Last Admin: 08/16/18 21:01 Dose: 5,000 units Meropenem 1 gm/ Sodium (Chloride) 100 mls @ 100 mls/hr IVPB Q8H RIRI; Protocol Last Admin: 08/16/18 22:27 Dose: 100 mls/hr Vancomycin/Sodium Chloride (Vancomycin 1 Gm/Ns 200 Ml) 1 gm in 200 mls @ 166.7 mls/hr IVPB Q24H RIRI; Protocol Stop: 08/21/18 15:31 Last Admin: 08/16/18 15:50 Dose: 166.7 mls/hr Lactobacillus Acidophilus (Bacid Acidophilus) 1 cap PO BID [facility] Last Admin: 08/16/18 17:12 Dose: 1 cap Pantoprazole Sodium (Protonix Ec Tab) 40 mg PO DAILY [facility] Last Admin: 08/16/18 09:42 Dose: 40 mg Tamsulosin HCl (Flomax) 0.4 mg PO BID [facility] Last Admin: 08/16/18 17:12 Dose: 0.4 mg Results - Vital Signs Recent Vital Signs: Last Vital Signs Temp 100.8 F H 08/16/18 21:07 Pulse 74 08/16/18 22:01 Resp 31 H 08/16/18 22:01 BP 102/59 L 08/16/18 22:01 Pulse Ox 99 08/16/18 22:01 - Labs Result Diagrams: 08/16/18 06:08 08/16/18 06:08 Labs: Laboratory Results - last 24 hr 08/16/18 08/16/18 08/16/18 06:08 06:08 11:03 WBC 5.6 RBC 3.35 L Hgb 10.6 L Hct 31.0 L MCV 92.5 MCH 31.6 H MCHC 34.2 RDW 14.3 Plt Count 86 L MPV 11.0 Neut % (Auto) 58.9 Lymph % (Auto) 24.7 [place] % (Auto) 15.1 H Eos % (Auto) 0.9 Baso % (Auto) 0.4 Neut # (Auto) 3.3 Lymph # (Auto) 1.4 [place] # (Auto) 0.8 Eos # (Auto) 0.1 Baso # (Auto) 0.0 Sodium 137 Potassium 3.7 Chloride 108 H Carbon Dioxide 23 Anion Gap 9 L BUN 14 Creatinine 0.9 Est GFR ( Amer) > 60 Est GFR (Non-Af Amer) > 60 Random Glucose 100 Calcium 7.1 L Phosphorus 1.9 L Magnesium 2.0 Total Bilirubin 0.5 AST 54 ALT 60 Alkaline Phosphatase 115 Total Creatine Kinase 204 H CK-MB (Mass) 2.55 Troponin I 0.0490 Total Protein 5.4 L Albumin 2.8 L Globulin 2.6 Albumin/Globulin Ratio 1.1 Gentamicin Trough C. difficile Ag & Toxin Negative 08/16/18 20:45 WBC RBC Hgb Hct MCV MCH MCHC RDW Plt Count MPV Neut % (Auto) Lymph % (Auto) [place] % (Auto) Eos % (Auto) Baso % (Auto) Neut # (Auto) Lymph # (Auto) [place] # (Auto) Eos # (Auto) Baso # (Auto) Sodium Potassium Chloride Carbon Dioxide Anion Gap BUN Creatinine Est GFR ( Amer) Est GFR (Non-Af Amer) Random Glucose Calcium Phosphorus Magnesium Total Bilirubin AST ALT Alkaline Phosphatase Total Creatine Kinase CK-MB (Mass) Troponin I Total Protein Albumin Globulin Albumin/Globulin Ratio Gentamicin Trough 2.2 H* C. difficile Ag & Toxin Assessment & Plan - Assessment and Plan (Free Text) Assessment: IMP: UTI Bacteremia BPH full note tbd Discussed w ICU resident / staff YS - Date & Time Date: 08/15/18 Time: 11:35
--- NOTE | 2018-08-17 02:33 | PN ---
DATE: 08/16/2018 SUBJECTIVE: The patient is in ICU now. He is on Merrem, vancomycin as well as gentamicin. He still is spiking temps. His last temperature was 100.8. I saw him this afternoon. It seemed like he was straining to pee, and I would think he has some ureteral obstruction or something else as he did come in with Klebsiella septicemia and UTI, and Dr. Mcfadden has been called in, so we will follow his recommendations. His genta level at this point is 2.2, so we will hold off the gentamicin tonight. He had a genta random level in a.m. and maybe we will have to give him every 12 hours. He is not coughing. He denies any other complaints. PHYSICAL EXAMINATION VITAL SIGNS: His temperature is 100.8, blood pressure 102/59, respiratory rate is 31. GENERAL: He was peeing when I went in and it seemed like he was in pain and he did make only, it seemed like 80 to 100 mL of urine. His was at the bedside. HEENT: Head is atraumatic and normocephalic. Pupils are reacting to light. NECK: Supple. LUNGS: Clear. HEART: S1 and S2 regular. ABDOMEN: Mildly distended. EXTREMITIES: No edema. We need to monitor his I's and O's also as he may be in failure. Chest x-ray actually showed medial right basilar opacity, possible pneumonia. Followup advised. I would think he is in more failure. He continues to have fever which bothers me because Klebsiella is covered with two antibiotics and so I would look into any other source of cystitis on the CT scan. He does have some hepatic cysts and renal cysts. I would also check the echocardiogram to rule out any vegetation. Otherwise, I think he is to have the urological procedure to make sure it is patent. Rajesh Gallegos MD
[2018-08-17] MEDS: Meropenem 1 GM in Sodium Chloride 0.9% 100 ML IVPB SCH ×3 (05:54→21:08)
[2018-08-17 06:08] LABS: BASO % 0.4 % (0.0-2.0); EOS # 0.3 K/uL (0.0-0.7); EOS % 4.8 % (0.0-4.0); HEMOGLOBIN 11.2 g/dL (12.0-18.0); LYMPH # 1.8 K/uL (1.0-4.3); LYMPH % 28.8 % (20.0-40.0); MEAN CORPUSCULAR HEMOGLOBIN 31.8 pg (27.0-31.0); MEAN CORPUSCULAR HGB CONC 34.6 g/dL (33.0-37.0); MEAN PLATELET VOLUME 10.1 fL (7.2-11.7); MONO # 0.9 K/uL (0.0-0.8); MONO % 14.2 % (0.0-10.0); NEUT # 3.3 K/uL (1.8-7.0); NEUT % 51.8 % (50.0-75.0); NRBC % 0.2 % (0.0-2.0); RBC 3.51 Mil/uL (4.40-5.90); RED CELL DISTRIBUTION WIDTH 14.3 % (11.5-14.5); WHITE BLOOD COUNT 6.3 K/uL (4.8-10.8)
[2018-08-17 06:31] LABS: ALBUMIN 2.7 g/dL (3.5-5.0); ALT/SGPT 51 U/L (21-72); AST/SGOT 40 U/L (17-59); BLOOD UREA NITROGEN 11 mg/dL (9-20); CALCIUM 7.4 mg/dl (8.6-10.4); GFR NON-AFRICAN AMERICAN > 60
--- NOTE | 2018-08-17 08:54 | CP.CCUPN ---
<Anh Quinteros - Last Filed: 08/17/18 11:15> CCU Subjective - Physician Review Events Since Last Encounter (Free Text): 08/17/18 08:53 febrile over night 100.8 Subjective (Free Text): 08/17/18 08:53 Patient was seen and examined this morning. He is resting comfortably. He is saturating well on NC. No acute complaints. Critical Care Time Spent (in minutes): 35 CCU Objective - Vital Signs / Intake & Output Vital Signs (Last 4 hours): Vital Signs Pulse Resp BP Pulse Ox 08/17/18 05:01 72 24 103/64 97 Intake and Output (Last 8hrs): Intake & Output 08/16/18 08/17/18 08/17/18 22:59 06:59 14:59 Intake Total 840 200 Output Total 325 550 Balance 515 -350 Intake: Intake, IV Amount 500 0 Right PICC 500 0 Oral 340 200 Other 0 Output: Urine 325 550 Urine, Voided 325 550 Stool 0 Other: # Bowel Movements 1 - Physical Exam Head: Positive for: Atraumatic, Normocephalic Pupils: Positive for: PERRL Extroacular Muscles: Positive for: EOMI Conjunctiva: Positive for: Normal Mouth: Positive for: Moist Mucous Membranes Neck: Positive for: Normal Range of Motion Respiratory/Chest: Positive for: Clear to Auscultation. Negative for: Respiratory Distress Cardiovascular: Positive for: Regular Rate and Rhythm, Normal S1, S2, Bradycardic. Negative for: Murmurs Abdomen: Negative for: Tenderness, Distention, Peritoneal Signs Back: Negative for: CVA Tenderness Upper Extremity: Positive for: Normal Inspection Lower Extremity: Positive for: Normal Inspection Neurological: Positive for: GCS=15, CN II-XII Intact, Speech Normal Skin: Positive for: Warm, Dry, Normal Color Psychiatric: Positive for: Alert, Oriented x 3, Normal Concentration - Medications Active Medications: Active Medications Generic Name Dose Route Start Last Admin Trade Name Freq PRN Reason Stop Dose Admin Acetaminophen 650 mg 08/12/18 16:41 08/16/18 21:07 Tylenol 325mg Tab PO 650 mg Q6 PRN Administration Fever >100.4 F or Pain Albuterol/Ipratropium 3 ml 08/15/18 18:39 08/16/18 21:45 Duoneb 3 Mg/0.5 Mg (3 Ml) Ud INH 3 ml RQ6 PRN Administration Shortness of Breath Heparin Sodium (Porcine) 5,000 units 08/12/18 22:00 08/17/18 05:55 Heparin SC 5,000 units Q8 RIRI Administration Meropenem 1 gm/ Sodium 100 mls @ 100 mls/hr 08/15/18 14:00 08/17/18 05:54 Chloride IVPB 100 mls/hr Q8H RIRI Administration Protocol Vancomycin/Sodium Chloride 1 gm in 200 mls @ 166.7 mls/hr 08/16/18 15:30 08/16/18 15:50 Vancomycin 1 Gm/Ns 200 Ml IVPB 08/21/18 15:31 166.7 mls/hr Q24H RIRI Administration Protocol Lactobacillus Acidophilus 1 cap 08/12/18 18:00 08/16/18 17:12 Bacid Acidophilus PO 1 cap BID RIRI Administration Pantoprazole Sodium 40 mg 08/15/18 13:50 08/16/18 09:42 Protonix Ec Tab PO 40 mg DAILY RIRI Administration Tamsulosin HCl 0.4 mg 08/15/18 18:00 08/16/18 17:12 Flomax PO 0.4 mg BID RIRI Administration - Patient Studies Lab Studies: Microbiology Studies 08/15/18 08:20 Blood Culture - Preliminary Blood NO GROWTH AFTER 48 HOURS 08/15/18 13:00 MRSA Culture (Admit) - Final Naris MRSA NOT DETECTED 08/15/18 12:47 Urine Culture - Final Urine,Strauss No Growth (<1,000 CFU/ML) 08/15/18 09:45 Blood Culture - Preliminary Blood NO GROWTH AFTER 24 HOURS Lab Studies 08/17/18 08/17/18 08/16/18 Range/Units 06:01 06:01 20:45 WBC 6.3 (4.8-10.8) K/uL RBC 3.51 L (4.40-5.90) Mil/uL Hgb 11.2 L (12.0-18.0) g/dL Hct 32.3 L (35.0-51.0) % MCV 92.0 (80.0-94.0) fL MCH 31.8 H (27.0-31.0) pg MCHC 34.6 (33.0-37.0) g/dL RDW 14.3 (11.5-14.5) % Plt Count 110 L D (130-400) K/uL MPV 10.1 (7.2-11.7) fL Neut % (Auto) 51.8 (50.0-75.0) % Lymph % (Auto) 28.8 (20.0-40.0) % [place] % (Auto) 14.2 H (0.0-10.0) % Eos % (Auto) 4.8 H (0.0-4.0) % Baso % (Auto) 0.4 (0.0-2.0) % Neut # (Auto) 3.3 (1.8-7.0) K/uL Lymph # (Auto) 1.8 (1.0-4.3) K/uL [place] # (Auto) 0.9 H (0.0-0.8) K/uL Eos # (Auto) 0.3 (0.0-0.7) K/uL Baso # (Auto) 0.0 (0.0-0.2) K/uL Sodium 137 (132-148) mmol/L Potassium 3.9 (3.6-5.2) mmol/L Chloride 108 H (98-107) mmol/L Carbon Dioxide 25 (22-30) mmol/L Anion Gap 8 L (10-20) BUN 11 (9-20) mg/dL Creatinine 0.7 L (0.8-1.5) mg/dL Est GFR ( Amer) > 60 Est GFR (Non-Af Amer) > 60 Random Glucose 100 (75-110) mg/dL Calcium 7.4 L (8.6-10.4) mg/dl Phosphorus 2.0 L (2.5-4.5) mg/dL Magnesium 2.0 (1.6-2.3) mg/dL Total Bilirubin 0.4 (0.2-1.3) mg/dL AST 40 (17-59) U/L ALT 51 (21-72) U/L Alkaline Phosphatase 112 (38-126) U/L Total Protein 5.5 L (6.3-8.3) g/dL Albumin 2.7 L (3.5-5.0) g/dL Globulin 2.7 (2.2-3.9) gm/dL Albumin/Globulin Ratio 1.0 (1.0-2.1) Gentamicin Trough 2.2 H* (0.0-0.9) ug/mL C. difficile Ag & Toxin (NEGATIVE) 08/16/18 Range/Units 11:03 WBC (4.8-10.8) K/uL RBC (4.40-5.90) Mil/uL Hgb (12.0-18.0) g/dL Hct (35.0-51.0) % MCV (80.0-94.0) fL MCH (27.0-31.0) pg MCHC (33.0-37.0) g/dL RDW (11.5-14.5) % Plt Count (130-400) K/uL MPV (7.2-11.7) fL Neut % (Auto) (50.0-75.0) % Lymph % (Auto) (20.0-40.0) % [place] % (Auto) (0.0-10.0) % Eos % (Auto) (0.0-4.0) % Baso % (Auto) (0.0-2.0) % Neut # (Auto) (1.8-7.0) K/uL Lymph # (Auto) (1.0-4.3) K/uL [place] # (Auto) (0.0-0.8) K/uL Eos # (Auto) (0.0-0.7) K/uL Baso # (Auto) (0.0-0.2) K/uL Sodium (132-148) mmol/L Potassium (3.6-5.2) mmol/L Chloride (98-107) mmol/L Carbon Dioxide (22-30) mmol/L Anion Gap (10-20) BUN (9-20) mg/dL Creatinine (0.8-1.5) mg/dL Est GFR ( Amer) Est GFR (Non-Af Amer) Random Glucose (75-110) mg/dL Calcium (8.6-10.4) mg/dl Phosphorus (2.5-4.5) mg/dL Magnesium (1.6-2.3) mg/dL Total Bilirubin (0.2-1.3) mg/dL AST (17-59) U/L ALT (21-72) U/L Alkaline Phosphatase (38-126) U/L Total Protein (6.3-8.3) g/dL Albumin (3.5-5.0) g/dL Globulin (2.2-3.9) gm/dL Albumin/Globulin Ratio (1.0-2.1) Gentamicin Trough (0.0-0.9) ug/mL C. difficile Ag & Toxin Negative (NEGATIVE) Laboratory Results - last 24 hr 08/16/18 08/16/18 08/17/18 11:03 20:45 06:01 WBC 6.3 RBC 3.51 L Hgb 11.2 L Hct 32.3 L MCV 92.0 MCH 31.8 H MCHC 34.6 RDW 14.3 Plt Count 110 L D MPV 10.1 Neut % (Auto) 51.8 Lymph % (Auto) 28.8 [place] % (Auto) 14.2 H Eos % (Auto) 4.8 H Baso % (Auto) 0.4 Neut # (Auto) 3.3 Lymph # (Auto) 1.8 [place] # (Auto) 0.9 H Eos # (Auto) 0.3 Baso # (Auto) 0.0 Sodium Potassium Chloride Carbon Dioxide Anion Gap BUN Creatinine Est GFR ( Amer) Est GFR (Non-Af Amer) Random Glucose Calcium Phosphorus Magnesium Total Bilirubin AST ALT Alkaline Phosphatase Total Protein Albumin Globulin Albumin/Globulin Ratio Gentamicin Trough 2.2 H* C. difficile Ag & Toxin Negative 08/17/18 06:01 WBC RBC Hgb Hct MCV MCH MCHC RDW Plt Count MPV Neut % (Auto) Lymph % (Auto) [place] % (Auto) Eos % (Auto) Baso % (Auto) Neut # (Auto) Lymph # (Auto) [place] # (Auto) Eos # (Auto) Baso # (Auto) Sodium 137 Potassium 3.9 Chloride 108 H Carbon Dioxide 25 Anion Gap 8 L BUN 11 Creatinine 0.7 L Est GFR ( Amer) > 60 Est GFR (Non-Af Amer) > 60 Random Glucose 100 Calcium 7.4 L Phosphorus 2.0 L Magnesium 2.0 Total Bilirubin 0.4 AST 40 ALT 51 Alkaline Phosphatase 112 Total Protein 5.5 L Albumin 2.7 L Globulin 2.7 Albumin/Globulin Ratio 1.0 Gentamicin Trough C. difficile Ag & Toxin Review of Systems - Review of Systems All systems: reviewed and no additional remarkable complaints except - Constitutional Constitutional: absent: Fever, Chills, Sweats - EENT Eyes: UNREMARKABLE Ears: UNREMARKABLE Nose/Mouth/Throat: UNREMARKABLE - Cardiovascular Cardiovascular: UNREMARKABLE. absent: Chest Pain, Diaphoresis, Dyspnea - Respiratory Respiratory: UNREMARKABLE. absent: Cough, Dyspnea - Gastrointestinal Gastrointestinal: UNREMARKABLE. absent: Abdominal Pain, Diarrhea (resolved) - Genitourinary Genitourinary: Urinary Frequency. absent: Dysuria - Musculoskeletal Musculoskeletal: UNREMARKABLE - Integumentary Integumentary: UNREMARKABLE. absent: Lesions - Neurological Neurological: UNREMARKABLE - Psychiatric Psychiatric: UNREMARKABLE - Endocrine Endocrine: UNREMARKABLE - Hematologic/Lymphatic Hematologic: UNREMARKABLE Critical Care Progress Note - Extremities/Vascular Does the Patient have a Central Venous Catheter?: No Does the Patient need a Central Venous Catheter?: No Does the Patient have a Strauss Catheter?: No Does the Patient need a Strauss Catheter?: No - Prophylaxis GI Prophylaxis GI: PPI - Prophylaxis DVT Prophylaxis DVT: Heparin SQ - Nutrition Nutrition: Nutrition Category Date Time Status Heart Healthy Diet [DIET] Diets 08/15/18 Dinner Active Assessment/Plan - Assessment and Plan (Free Text) Assessment: Patient is a 77 yo male without significant PMH who presented with fever and abdominal pain. Patient was admitted for pyelonephritis. DIESEL SERVICE APPRENTICE was called on 08/12 for hypotension and patient was transferred to the ICU. He was treated with broad spectrum IV abx and his vitals remained stable, so he was transferred back to med/surg over the weekend. On 08/15, an DIESEL SERVICE APPRENTICE was called for respiratory distress. Patient was transferred back to the ICU for PRN BiPAP, bradycardia, and hypotension. Patient's urine and blood cultures grew Klebsiella. Repeat cultures have no growth >48 hours. Patient is now saturating well on NC. He continues to be intermittently febrile. His b/l pleural effusions are decreasing . He is able to be transferred to telemetry unit. Plan: Neuro: - No acute issues - Monitor mental status CV: Pericardial effusion - CT chest/abd/pelvis 08/15: -med pericardial effusion - Echo 08/12: EF >70%, no significant abnormalities - Repeat Echo: small concentric pericardial effusion, no tamponade Bradycardia- improved - EKG: low voltage, sinus bradycardia - KENNEDY x3 negative - TSH wnl - Cardiology consulted (Eulalio) Pulm: - DIESEL SERVICE APPRENTICE for respiratory distress on 08/15- resolved - ABG 7AM: pH 7.16, pCO2 47, pO2 163, lactate 6 - ABG 4PM: pH 7.45, pCO2 26, pO2 72 - Maintain spO2>92%- NC or BiPAP PRN - CT chest/abd/pelvis 08/15: moderately large b/l pleural effusions - CXR 08/16: pleural effusions improved, medial R basilar opacity- possible PNA - Duoneb Q6H PRN GI: - Diarrhea resolved - C. diff negative - Florastor 250 mg PO BID - Heart healthy diet - [employer] Mechanic consulted- patient request : - CT A/P 08/12: no urolithiasis or evidence of recently passed calculus, bladder wall thickening - CT chest/abd/pelvis 08/15: b/l renal cysts, no change in liver cyst, urinary bladder wall thickening - BUN, Cr wnl - PSA elevated (7.82) - I's & O's - Replete electrolytes PRN - Flomax 0.4 mg PO BID - Urology consulted (Kamala Mcfadden) - Nephrology consulted (Rikki) Endo: - Maintain euglycemia - TSH wnl Heme: - Anemia- Hgb stable (11.2) - Monitor H&H ID: Septic shock (bacteremia)- suspect 11/12 cystitis - DIESEL SERVICE APPRENTICE for hypotension on 08/12 - Off pressors - Febrile- Tmax 103 - Tylenol 650 mg PO Q6H PRN - Lactate elevation resolved (6->1.2) - Procal elevated (31.91) - Leukocytosis resolved - Blood, urine Cx- Klebsiella pneumoniae - Repeat Cx no growth >48hrs - Discontinue Gentamicin 80 mg IV Q8H - Meropenem 1 g IV Q8H - Vancomycin 1 g IV Q12H - F/u trough - Florastor 250 mg PO BID - ID consulted (El) Ppx: VTE: SCDs, heparin 5000 units SC Q8H GI: PTX 40 mg PO daily PT Code status: full code Case was discussed with attending, Dr. Cuenca. PGY-1 Anh Quinteros D.O. <Fidencio Cuenca - Last Filed: 08/17/18 16:58> CCU Objective - Vital Signs / Intake & Output Vital Signs (Last 4 hours): Vital Signs Temp Pulse Resp BP Pulse Ox 08/17/18 16:40 66 08/17/18 16:00 98 F 68 20 121/74 99 08/17/18 15:01 77 25 H 119/66 97 08/17/18 15:00 76 24 96 08/17/18 14:02 73 26 H 112/56 L 97 08/17/18 14:00 75 25 H 98 08/17/18 13:01 82 26 H 125/79 85 L 08/17/18 13:00 77 23 73 L Intake and Output (Last 8hrs): Intake & Output 08/17/18 08/17/18 08/17/18 06:59 14:59 22:59 Intake Total 200 1240 Output Total 550 400 Balance -350 840 Intake: Intake, IV Amount 0 0 Right PICC 0 0 Oral 200 1240 Output: Urine 550 400 Urine, Voided 550 400 Stool 0 Other: # Bowel Movements 1 - Medications Active Medications: Active Medications Generic Name Dose Route Start Last Admin Trade Name Freq PRN Reason Stop Dose Admin Acetaminophen 650 mg 08/12/18 16:41 08/16/18 21:07 Tylenol 325mg Tab PO 650 mg Q6 PRN Administration Fever >100.4 F or Pain Albuterol/Ipratropium 3 ml 08/15/18 18:39 08/16/18 21:45 Duoneb 3 Mg/0.5 Mg (3 Ml) Ud INH 3 ml RQ6 PRN Administration Shortness of Breath Heparin Sodium (Porcine) 5,000 units 08/12/18 22:00 08/17/18 14:43 Heparin SC 5,000 units Q8 RIRI Administration Meropenem 1 gm/ Sodium 100 mls @ 100 mls/hr 08/15/18 14:00 08/17/18 14:42 Chloride IVPB 100 mls/hr Q8H RIRI Administration Protocol Vancomycin/Sodium Chloride 1 gm in 200 mls @ 166.7 mls/hr 08/16/18 15:30 08/17/18 16:11 Vancomycin 1 Gm/Ns 200 Ml IVPB 08/21/18 15:31 166.7 mls/hr Q24H RIRI Administration Protocol Lactobacillus Acidophilus 1 cap 08/12/18 18:00 08/17/18 09:13 Bacid Acidophilus PO 1 cap BID RIRI Administration Pantoprazole Sodium 40 mg 08/15/18 13:50 08/17/18 09:13 Protonix Ec Tab PO 40 mg DAILY RIRI Administration Tamsulosin HCl 0.4 mg 08/15/18 18:00 08/17/18 09:13 Flomax PO 0.4 mg BID RIRI Administration - Patient Studies Lab Studies: Microbiology Studies 08/15/18 09:45 Blood Culture - Preliminary Blood NO GROWTH AFTER 48 HOURS 08/15/18 08:20 Blood Culture - Preliminary Blood NO GROWTH AFTER 48 HOURS 08/15/18 13:00 MRSA Culture (Admit) - Final Naris MRSA NOT DETECTED 08/15/18 12:47 Urine Culture - Final Urine,Strauss No Growth (<1,000 CFU/ML) Lab Studies 08/17/18 08/17/18 08/16/18 Range/Units 06:01 06:01 20:45 WBC 6.3 (4.8-10.8) K/uL RBC 3.51 L (4.40-5.90) Mil/uL Hgb 11.2 L (12.0-18.0) g/dL Hct 32.3 L (35.0-51.0) % MCV 92.0 (80.0-94.0) fL MCH 31.8 H (27.0-31.0) pg MCHC 34.6 (33.0-37.0) g/dL RDW 14.3 (11.5-14.5) % Plt Count 110 L D (130-400) K/uL MPV 10.1 (7.2-11.7) fL Neut % (Auto) 51.8 (50.0-75.0) % Lymph % (Auto) 28.8 (20.0-40.0) % [place] % (Auto) 14.2 H (0.0-10.0) % Eos % (Auto) 4.8 H (0.0-4.0) % Baso % (Auto) 0.4 (0.0-2.0) % Neut # (Auto) 3.3 (1.8-7.0) K/uL Lymph # (Auto) 1.8 (1.0-4.3) K/uL [place] # (Auto) 0.9 H (0.0-0.8) K/uL Eos # (Auto) 0.3 (0.0-0.7) K/uL Baso # (Auto) 0.0 (0.0-0.2) K/uL Sodium 137 (132-148) mmol/L Potassium 3.9 (3.6-5.2) mmol/L Chloride 108 H (98-107) mmol/L Carbon Dioxide 25 (22-30) mmol/L Anion Gap 8 L (10-20) BUN 11 (9-20) mg/dL Creatinine 0.7 L (0.8-1.5) mg/dL Est GFR ( Amer) > 60 Est GFR (Non-Af Amer) > 60 Random Glucose 100 (75-110) mg/dL Calcium 7.4 L (8.6-10.4) mg/dl Phosphorus 2.0 L (2.5-4.5) mg/dL Magnesium 2.0 (1.6-2.3) mg/dL Total Bilirubin 0.4 (0.2-1.3) mg/dL AST 40 (17-59) U/L ALT 51 (21-72) U/L Alkaline Phosphatase 112 (38-126) U/L Total Protein 5.5 L (6.3-8.3) g/dL Albumin 2.7 L (3.5-5.0) g/dL Globulin 2.7 (2.2-3.9) gm/dL Albumin/Globulin Ratio 1.0 (1.0-2.1) Gentamicin Trough 2.2 H* (0.0-0.9) ug/mL Laboratory Results - last 24 hr 08/16/18 08/17/18 08/17/18 20:45 06:01 06:01 WBC 6.3 RBC 3.51 L Hgb 11.2 L Hct 32.3 L MCV 92.0 MCH 31.8 H MCHC 34.6 RDW 14.3 Plt Count 110 L D MPV 10.1 Neut % (Auto) 51.8 Lymph % (Auto) 28.8 [place] % (Auto) 14.2 H Eos % (Auto) 4.8 H Baso % (Auto) 0.4 Neut # (Auto) 3.3 Lymph # (Auto) 1.8 [place] # (Auto) 0.9 H Eos # (Auto) 0.3 Baso # (Auto) 0.0 Sodium 137 Potassium 3.9 Chloride 108 H Carbon Dioxide 25 Anion Gap 8 L BUN 11 Creatinine 0.7 L Est GFR ( Amer) > 60 Est GFR (Non-Af Amer) > 60 Random Glucose 100 Calcium 7.4 L Phosphorus 2.0 L Magnesium 2.0 Total Bilirubin 0.4 AST 40 ALT 51 Alkaline Phosphatase 112 Total Protein 5.5 L Albumin 2.7 L Globulin 2.7 Albumin/Globulin Ratio 1.0 Gentamicin Trough 2.2 H* Critical Care Progress Note - Nutrition Nutrition: Nutrition Category Date Time Status Heart Healthy Diet [DIET] Diets 08/15/18 Dinner Active Attending/Attestation - Attestation I have personally seen and examined this patient.: Yes I have fully participated in the care of the patient.: Yes I have reviewed all pertinent clinical information: Yes Notes (Text): 08/17/18 16:57 patient seen and examined in the intensive care unit. Stable for transfer to floor Continue present treatment Clinically much improved Continue IV antibiotics Vancomycin discontinued
[2018-08-17] MEDS ORDERED: Potassium & Sodium Phosphate PO ONE (08:55)
[2018-08-17] MEDS: Lactobacillus Acidophilus 500 MU Cap PO SCH ×2 (09:13→17:03)
[2018-08-17] MEDS: Pantoprazole 40 mg EC Tab PO SCH (09:13)
--- NOTE | 2018-08-17 11:19 | CP.PCM.PN ---
Subjective - Date & Time of Evaluation Date of Evaluation: 08/16/18 Time of Evaluation: 19:35 - Subjective Subjective: Patient was seen and examined. denies chest pain and dyspnea Bradycardia improved Physical Examination - Physical Exam Head: Positive for: Atraumatic, Normocephalic Pupils: Positive for: PERRL Extroacular Muscles: Positive for: EOMI Conjunctiva: Positive for: Normal Mouth: Positive for: Moist Mucous Membranes Neck: Positive for: Normal Range of Motion Respiratory/Chest: Positive for: Clear to Auscultation. Negative for: Respiratory Distress Cardiovascular: Positive for: Regular Rate and Rhythm, Normal S1, S2, Bradycardic. Negative for: Murmurs Abdomen: Negative for: Tenderness, Distention, Peritoneal Signs Back: Negative for: CVA Tenderness Upper Extremity: Positive for: Normal Inspection Lower Extremity: Positive for: Normal Inspection Neurological: Positive for: GCS=15, CN II-XII Intact, Speech Normal Skin: Positive for: Warm, Dry, Normal Color Psychiatric: Positive for: Alert, Oriented x 3, Normal Concentration - Medications Active Medications: Active Medications Generic Name Dose Route Start Last Admin Trade Name Freq PRN Reason Stop Dose Admin Acetaminophen 650 mg 08/12/18 16:41 08/16/18 03:49 Tylenol 325mg Tab PO 650 mg Q6 PRN Administration Fever >100.4 F or Pain Albuterol/Ipratropium 3 ml 08/15/18 18:39 Duoneb 3 Mg/0.5 Mg (3 Ml) Ud INH RQ6 PRN Shortness of Breath Furosemide 40 mg 08/16/18 10:00 Lasix IVP DAILY [facility] Heparin Sodium (Porcine) 5,000 units 08/12/18 22:00 08/16/18 05:35 Heparin SC 5,000 units Q8 RIRI Administration Sodium Chloride 1,000 mls @ 75 mls/hr 08/13/18 10:11 08/15/18 17:05 Sodium Chloride 0.9% IV Not Given .[id number] RIRI Vancomycin/Sodium Chloride 1 gm in 200 mls @ 166.7 mls/hr 08/15/18 08:30 08/15/18 19:51 Vancomycin 1 Gm/Ns 200 Ml IVPB 08/20/18 08:31 166.7 mls/hr Q12H RIRI Administration Protocol Meropenem 1 gm/ Sodium 100 mls @ 100 mls/hr 08/15/18 14:00 08/16/18 05:35 Chloride IVPB 100 mls/hr Q8H RIRI Administration Protocol Gentamicin Sulfate 80 mg/ 102 mls @ 100 mls/hr 08/15/18 22:00 08/16/18 06:17 Sodium Chloride IVPB 100 mls/hr Q8H RIRI Administration Protocol Lactobacillus Acidophilus 1 cap 08/12/18 18:00 08/15/18 17:04 Bacid Acidophilus PO 1 cap BID RIRI Administration Pantoprazole Sodium 40 mg 08/15/18 13:50 Protonix Ec Tab PO DAILY RIRI Tamsulosin HCl 0.4 mg 08/15/18 18:00 08/15/18 17:04 Flomax PO 0.4 mg BID RIRI Administration - Patient Studies Lab Studies: Microbiology Studies 08/14/18 18:47 MRSA Culture - Final Naris MRSA NOT DETECTED 08/12/18 13:59 Blood Culture - Final Blood Klebsiella Pneumoniae Ssp Pneu Gram Stain - Final 08/12/18 13:59 Blood Culture - Final Blood Klebsiella Pneumoniae Ssp Pneu Gram Stain - Final Lab Studies 08/16/18 08/16/18 08/15/18 Range/Units 06:08 06:08 20:11 WBC 5.6 (4.8-10.8) K/uL RBC 3.35 L (4.40-5.90) Mil/uL Hgb 10.6 L (12.0-18.0) g/dL Hct 31.0 L (35.0-51.0) % MCV 92.5 (80.0-94.0) fL MCH 31.6 H (27.0-31.0) pg MCHC 34.2 (33.0-37.0) g/dL RDW 14.3 (11.5-14.5) % Plt Count 86 L (130-400) K/uL MPV 11.0 (7.2-11.7) fL Neut % (Auto) 58.9 (50.0-75.0) % Lymph % (Auto) 24.7 (20.0-40.0) % Merrick % (Auto) 15.1 H (0.0-10.0) % Eos % (Auto) 0.9 (0.0-4.0) % Baso % (Auto) 0.4 (0.0-2.0) % Neut # (Auto) 3.3 (1.8-7.0) K/uL Lymph # (Auto) 1.4 (1.0-4.3) K/uL Merrick # (Auto) 0.8 (0.0-0.8) K/uL Eos # (Auto) 0.1 (0.0-0.7) K/uL Baso # (Auto) 0.0 (0.0-0.2) K/uL Neutrophils % (Manual) (50-75) % Band Neutrophils % (0-2) % Lymphocytes % (Manual) (20-40) % Monocytes % (Manual) (0-10) % Platelet Estimate (NORMAL) RBC Morphology Puncture Site pCO2 (35-45) mm/Hg pO2 (80-100) mm/Hg HCO3 (21-28) mmol/L ABG pH (7.35-7.45) ABG Total CO2 (22-28) mmol/L ABG O2 Saturation (95-98) % ABG Base Excess (-2.0-3.0) mmol/L Huey Test ABG Potassium (3.6-5.2) mmol/L Glucose (75-110) mg/dl Lactate (0.7-2.1) mmol/L Liter Flow Sodium 137 (132-148) mmol/L Potassium 3.7 (3.6-5.2) mmol/L Chloride 108 H (98-107) mmol/L Carbon Dioxide 23 (22-30) mmol/L Anion Gap 9 L (10-20) BUN 14 (9-20) mg/dL Creatinine 0.9 (0.8-1.5) mg/dL Est GFR ( Amer) > 60 Est GFR (Non-Af Amer) > 60 Random Glucose 100 (75-110) mg/dL Lactic Acid (0.7-2.1) mmol/L Calcium 7.1 L (8.6-10.4) mg/dl Phosphorus 1.9 L 2.5 (2.5-4.5) mg/dL Magnesium 2.0 2.0 (1.6-2.3) mg/dL Total Bilirubin 0.5 (0.2-1.3) mg/dL AST 54 (17-59) U/L ALT 60 (21-72) U/L Alkaline Phosphatase 115 (38-126) U/L Total Creatine Kinase 204 H (55-170) U/L CK-MB (Mass) 2.55 (0.0-3.38) ng/mL Troponin I 0.0490 (0.00-0.120) ng/mL NT-Pro-B Natriuret Pep (0-900) pg/mL Total Protein 5.4 L (6.3-8.3) g/dL Albumin 2.8 L (3.5-5.0) g/dL Globulin 2.6 (2.2-3.9) gm/dL Albumin/Globulin Ratio 1.1 (1.0-2.1) Prostate Specific Ag (0.00-4.0) ng/mL TSH 3rd Generation (0.46-4.68) mIU/L Arterial Blood Potassium (3.6-5.2) mmol/L 08/15/18 08/15/18 08/15/18 Range/Units 20:11 15:58 14:16 WBC (4.8-10.8) K/uL RBC (4.40-5.90) Mil/uL Hgb (12.0-18.0) g/dL Hct (35.0-51.0) % MCV (80.0-94.0) fL MCH (27.0-31.0) pg MCHC (33.0-37.0) g/dL RDW (11.5-14.5) % Plt Count (130-400) K/uL MPV (7.2-11.7) fL Neut % (Auto) (50.0-75.0) % Lymph % (Auto) (20.0-40.0) % Merrick % (Auto) (0.0-10.0) % Eos % (Auto) (0.0-4.0) % Baso % (Auto) (0.0-2.0) % Neut # (Auto) (1.8-7.0) K/uL Lymph # (Auto) (1.0-4.3) K/uL Merrick # (Auto) (0.0-0.8) K/uL Eos # (Auto) (0.0-0.7) K/uL Baso # (Auto) (0.0-0.2) K/uL Neutrophils % (Manual) (50-75) % Band Neutrophils % (0-2) % Lymphocytes % (Manual) (20-40) % Monocytes % (Manual) (0-10) % Platelet Estimate (NORMAL) RBC Morphology Puncture Site Rra pCO2 26 L (35-45) mm/Hg pO2 72 L (80-100) mm/Hg HCO3 21.5 (21-28) mmol/L ABG pH 7.45 (7.35-7.45) ABG Total CO2 18.9 L (22-28) mmol/L ABG O2 Saturation 97.2 (95-98) % ABG Base Excess -4.3 L (-2.0-3.0) mmol/L Huey Test Pos ABG Potassium 3.9 (3.6-5.2) mmol/L Glucose 105 (75-110) mg/dl Lactate 1.2 (0.7-2.1) mmol/L Liter Flow 2.0 Sodium 138 139.0 (132-148) mmol/L Potassium 3.3 L (3.6-5.2) mmol/L Chloride 108 H 113.0 H (98-107) mmol/L Carbon Dioxide 19 L (22-30) mmol/L Anion Gap 15 (10-20) BUN 15 (9-20) mg/dL Creatinine 1.0 (0.8-1.5) mg/dL Est GFR ( Amer) > 60 Est GFR (Non-Af Amer) > 60 Random Glucose 114 H (75-110) mg/dL Lactic Acid (0.7-2.1) mmol/L Calcium 7.5 L (8.6-10.4) mg/dl Phosphorus (2.5-4.5) mg/dL Magnesium (1.6-2.3) mg/dL Total Bilirubin (0.2-1.3) mg/dL AST (17-59) U/L ALT (21-72) U/L Alkaline Phosphatase (38-126) U/L Total Creatine Kinase 267 H 282 H (55-170) U/L CK-MB (Mass) 2.93 2.59 (0.0-3.38) ng/mL Troponin I 0.0650 0.0950 (0.00-0.120) ng/mL NT-Pro-B Natriuret Pep (0-900) pg/mL Total Protein (6.3-8.3) g/dL Albumin (3.5-5.0) g/dL Globulin (2.2-3.9) gm/dL Albumin/Globulin Ratio (1.0-2.1) Prostate Specific Ag (0.00-4.0) ng/mL TSH 3rd Generation (0.46-4.68) mIU/L Arterial Blood Potassium 3.9 (3.6-5.2) mmol/L 08/15/18 08/15/18 08/15/18 Range/Units 10:00 08:20 08:20 WBC 6.7 (4.8-10.8) K/uL RBC 3.57 L (4.40-5.90) Mil/uL Hgb 11.4 L (12.0-18.0) g/dL Hct 32.7 L (35.0-51.0) % MCV 91.8 (80.0-94.0) fL MCH 31.9 H (27.0-31.0) pg MCHC 34.7 (33.0-37.0) g/dL RDW 14.3 (11.5-14.5) % Plt Count 80 L (130-400) K/uL MPV 10.4 (7.2-11.7) fL Neut % (Auto) 87.5 H (50.0-75.0) % Lymph % (Auto) 6.5 L (20.0-40.0) % Merrick % (Auto) 5.4 (0.0-10.0) % Eos % (Auto) 0.3 (0.0-4.0) % Baso % (Auto) 0.3 (0.0-2.0) % Neut # (Auto) 5.8 (1.8-7.0) K/uL Lymph # (Auto) 0.4 L (1.0-4.3) K/uL Merrick # (Auto) 0.4 (0.0-0.8) K/uL Eos # (Auto) 0.0 (0.0-0.7) K/uL Baso # (Auto) 0.0 (0.0-0.2) K/uL Neutrophils % (Manual) 86 H (50-75) % Band Neutrophils % 5 H (0-2) % Lymphocytes % (Manual) 5 L (20-40) % Monocytes % (Manual) 4 (0-10) % Platelet Estimate Decreased L (NORMAL) RBC Morphology Normal Puncture Site pCO2 (35-45) mm/Hg pO2 (80-100) mm/Hg HCO3 (21-28) mmol/L ABG pH (7.35-7.45) ABG Total CO2 (22-28) mmol/L ABG O2 Saturation (95-98) % ABG Base Excess (-2.0-3.0) mmol/L Huey Test ABG Potassium (3.6-5.2) mmol/L Glucose (75-110) mg/dl Lactate (0.7-2.1) mmol/L Liter Flow Sodium 139 (132-148) mmol/L Potassium 3.8 (3.6-5.2) mmol/L Chloride 111 H (98-107) mmol/L Carbon Dioxide 16 L (22-30) mmol/L Anion Gap 16 (10-20) BUN 15 (9-20) mg/dL Creatinine 0.9 (0.8-1.5) mg/dL Est GFR ( Amer) > 60 Est GFR (Non-Af Amer) > 60 Random Glucose 123 H (75-110) mg/dL Lactic Acid 1.3 (0.7-2.1) mmol/L Calcium 7.6 L (8.6-10.4) mg/dl Phosphorus 1.1 L (2.5-4.5) mg/dL Magnesium 2.0 (1.6-2.3) mg/dL Total Bilirubin 0.7 (0.2-1.3) mg/dL AST 63 H D (17-59) U/L ALT 59 (21-72) U/L Alkaline Phosphatase 130 H D (38-126) U/L Total Creatine Kinase (55-170) U/L CK-MB (Mass) (0.0-3.38) ng/mL Troponin I (0.00-0.120) ng/mL NT-Pro-B Natriuret Pep 4120 H (0-900) pg/mL Total Protein 5.8 L (6.3-8.3) g/dL Albumin 3.1 L (3.5-5.0) g/dL Globulin 2.7 (2.2-3.9) gm/dL Albumin/Globulin Ratio 1.1 (1.0-2.1) Prostate Specific Ag 7.82 H (0.00-4.0) ng/mL TSH 3rd Generation 2.30 (0.46-4.68) mIU/L Arterial Blood Potassium (3.6-5.2) mmol/L Laboratory Results - last 24 hr 08/15/18 08/15/18 08/15/18 08:20 08:20 10:00 WBC 6.7 RBC 3.57 L Hgb 11.4 L Hct 32.7 L MCV 91.8 MCH 31.9 H MCHC 34.7 RDW 14.3 Plt Count 80 L MPV 10.4 Neut % (Auto) 87.5 H Lymph % (Auto) 6.5 L Merrick % (Auto) 5.4 Eos % (Auto) 0.3 Baso % (Auto) 0.3 Neut # (Auto) 5.8 Lymph # (Auto) 0.4 L Merrick # (Auto) 0.4 Eos # (Auto) 0.0 Baso # (Auto) 0.0 Neutrophils % (Manual) 86 H Band Neutrophils % 5 H Lymphocytes % (Manual) 5 L Monocytes % (Manual) 4 Platelet Estimate Decreased L RBC Morphology Normal Puncture Site pCO2 pO2 HCO3 ABG pH ABG Total CO2 ABG O2 Saturation ABG Base Excess Huey Test ABG Potassium Glucose Lactate Liter Flow Sodium 139 Potassium 3.8 Chloride 111 H Carbon Dioxide 16 L Anion Gap 16 BUN 15 Creatinine 0.9 Est GFR ( Amer) > 60 Est GFR (Non-Af Amer) > 60 Random Glucose 123 H Lactic Acid 1.3 Calcium 7.6 L Phosphorus 1.1 L Magnesium 2.0 Total Bilirubin 0.7 AST 63 H D ALT 59 Alkaline Phosphatase 130 H D Total Creatine Kinase CK-MB (Mass) Troponin I NT-Pro-B Natriuret Pep 4120 H Total Protein 5.8 L Albumin 3.1 L Globulin 2.7 Albumin/Globulin Ratio 1.1 Prostate Specific Ag 7.82 H TSH 3rd Generation 2.30 Arterial Blood Potassium 08/15/18 08/15/18 08/15/18 14:16 15:58 20:11 WBC RBC Hgb Hct MCV MCH MCHC RDW Plt Count MPV Neut % (Auto) Lymph % (Auto) Merrick % (Auto) Eos % (Auto) Baso % (Auto) Neut # (Auto) Lymph # (Auto) Merrick # (Auto) Eos # (Auto) Baso # (Auto) Neutrophils % (Manual) Band Neutrophils % Lymphocytes % (Manual) Monocytes % (Manual) Platelet Estimate RBC Morphology Puncture Site Rra pCO2 26 L pO2 72 L HCO3 21.5 ABG pH 7.45 ABG Total CO2 18.9 L ABG O2 Saturation 97.2 ABG Base Excess -4.3 L Huey Test Pos ABG Potassium 3.9 Glucose 105 Lactate 1.2 Liter Flow 2.0 Sodium 139.0 138 Potassium 3.3 L Chloride 113.0 H 108 H Carbon Dioxide 19 L Anion Gap 15 BUN 15 Creatinine 1.0 Est GFR ( Amer) > 60 Est GFR (Non-Af Amer) > 60 Random Glucose 114 H Lactic Acid Calcium 7.5 L Phosphorus Magnesium Total Bilirubin AST ALT Alkaline Phosphatase Total Creatine Kinase 282 H 267 H CK-MB (Mass) 2.59 2.93 Troponin I 0.0950 0.0650 NT-Pro-B Natriuret Pep Total Protein Albumin Globulin Albumin/Globulin Ratio Prostate Specific Ag TSH 3rd Generation Arterial Blood Potassium 3.9 08/15/18 08/16/18 08/16/18 20:11 06:08 06:08 WBC 5.6 RBC 3.35 L Hgb 10.6 L Hct 31.0 L MCV 92.5 MCH 31.6 H MCHC 34.2 RDW 14.3 Plt Count 86 L MPV 11.0 Neut % (Auto) 58.9 Lymph % (Auto) 24.7 Merrick % (Auto) 15.1 H Eos % (Auto) 0.9 Baso % (Auto) 0.4 Neut # (Auto) 3.3 Lymph # (Auto) 1.4 Merrick # (Auto) 0.8 Eos # (Auto) 0.1 Baso # (Auto) 0.0 Neutrophils % (Manual) Band Neutrophils % Lymphocytes % (Manual) Monocytes % (Manual) Platelet Estimate RBC Morphology Puncture Site pCO2 pO2 HCO3 ABG pH ABG Total CO2 ABG O2 Saturation ABG Base Excess Huey Test ABG Potassium Glucose Lactate Liter Flow Sodium 137 Potassium 3.7 Chloride 108 H Carbon Dioxide 23 Anion Gap 9 L BUN 14 Creatinine 0.9 Est GFR ( Amer) > 60 Est GFR (Non-Af Amer) > 60 Random Glucose 100 Lactic Acid Calcium 7.1 L Phosphorus 2.5 1.9 L Magnesium 2.0 2.0 Total Bilirubin 0.5 AST 54 ALT 60 Alkaline Phosphatase 115 Total Creatine Kinase 204 H CK-MB (Mass) 2.55 Troponin I 0.0490 NT-Pro-B Natriuret Pep Total Protein 5.4 L Albumin 2.8 L Globulin 2.6 Albumin/Globulin Ratio 1.1 Prostate Specific Ag TSH 3rd Generation Arterial Blood Potassium EKG/Cardiology Studies: Cardiology / EKG Studies 08/15/18 10:52 EKG [ELECTROCARDIOGRAM] Routine Comment: Mode Of Transportation: Reason For Exam: bradycardia Review of Systems - Review of Systems All systems: reviewed and no additional remarkable complaints except - Constitutional Constitutional: Fever. absent: Chills, Sweats - EENT Eyes: UNREMARKABLE. absent: Change in Vision Ears: UNREMARKABLE Nose/Mouth/Throat: UNREMARKABLE. absent: Nasal Congestion, Sore Throat - Cardiovascular Cardiovascular: UNREMARKABLE. absent: Chest Pain, Dyspnea, Palpitations - Respiratory Respiratory: UNREMARKABLE. absent: Cough, Dyspnea, Wheezing - Gastrointestinal Gastrointestinal: Diarrhea. absent: Abdominal Pain, Constipation, Nausea, Vomiting - Genitourinary Genitourinary: absent: Dysuria, Hematuria - Musculoskeletal Musculoskeletal: UNREMARKABLE - Integumentary Integumentary: UNREMARKABLE. absent: Lesions - Neurological Neurological: UNREMARKABLE - Psychiatric Psychiatric: UNREMARKABLE - Endocrine Endocrine: UNREMARKABLE - Hematologic/Lymphatic Hematologic: UNREMARKABLE Assessment/Plan - Assessment and Plan (Free Text) Assessment: Patient is a 77 yo male without significant PMH who presented with fever and abdominal pain. Patient was admitted for pyelonephritis. [facility] was called on 08/12 for hypotension and patient was transferred to the ICU. He was treated with broad spectrum IV abx and his vitals remained stable, so he was transferred back to med/surg over the weekend. On 08/15, an [facility] was called for respiratory distress. Patient was transferred back to the ICU for PRN BiPAP, bradycardia, and hypotension. Patient's urine and blood cultures grew Klebsiella. Patient is now saturating well on NC. He continues to be febrile. His b/l pleural effusions are decreasing. Plan: Neuro: - No acute issues - Monitor mental status CV: Pericardial effusion - CT chest/abd/pelvis 08/15: -[facility] pericardial effusion - Echo 08/12: EF >70%, no significant abnormalities - Repeat Echo: small concentric pericardial effusion, no tamponade Bradycardia - EKG: low voltage, sinus bradycardia - KENNEDY x3 negative - TSH wnl - Cardiology consulted (Eulalio) Pulm: - [facility] [employer] for respiratory distress on 08/15- resolved - ABG 7AM: pH 7.16, pCO2 47, pO2 163, lactate 6 - ABG 4PM: pH 7.45, pCO2 26, pO2 72 - Maintain spO2>92%- NC or BiPAP PRN - CT chest/abd/pelvis 08/15: moderately large b/l pleural effusions - CXR 08/16: pleural effusions improved - Discontinue IVF GI: - Diarrhea - C. diff pending - Florastor 250 mg PO BID - Heart healthy diet : - CT A/P 08/12: no urolithiasis or evidence of recently passed calculus, bladder wall thickening - CT chest/abd/pelvis 08/15: b/l renal cysts, no change in liver cyst, urinary bladder wall thickening - BUN, Cr wnl - I's & O's - Replete electrolytes PRN - Flomax 0.4 mg PO BID - PSA elevated (7.82) - Urology consulted (Kamala Mcfadden) - Nephrology consulted (Rikki) Endo: - Maintain euglycemia - TSH wnl Heme: - Anemia- Hgb stable (11.4) - Monitor H&H ID: Septic shock (bacteremia)- suspect 2/2 cystitis - [facility] [employer] for hypotension on 08/12 - Off pressors - Febrile- Tmax 103 - Tylenol 650 mg PO Q6H PRN - Lactate elevated (6) - Procal elevated (31.91) - Leukocytosis resolved - Blood, urine Cx- Klebsiella pneumoniae - Gentamicin 80 mg IV Q8H - Meropenem 1 g IV Q8H - Vancomycin 1 g IV Q12H - F/u trough - Florastor 250 mg PO BID - ID consulted (El) Ppx: VTE: SCDs, heparin 5000 units SC Q8H GI: PTX 40 mg PO daily PT Objective - Vital Signs/Intake and Output Vital Signs (last 24 hours): Temp Pulse Resp BP Pulse Ox 98.6 F 72 24 103/64 97 08/17/18 04:00 08/17/18 05:01 08/17/18 05:01 08/17/18 05:01 08/17/18 05:01 Intake and Output: 08/17/18 08/17/18 06:59 18:59 Intake Total 500 Output Total 675 Balance -175 - Medications Medications: Current Medications Acetaminophen (Tylenol 325mg Tab) 650 mg PO Q6 PRN PRN Reason: Fever >100.4 F or Pain Last Admin: 08/16/18 21:07 Dose: 650 mg Albuterol/Ipratropium (Duoneb 3 Mg/0.5 Mg (3 Ml) Ud) 3 ml INH RQ6 PRN PRN Reason: Shortness of Breath Last Admin: 08/16/18 21:45 Dose: 3 ml Heparin Sodium (Porcine) (Heparin) 5,000 units SC Q8 RIRI Last Admin: 08/17/18 05:55 Dose: 5,000 units Meropenem 1 gm/ Sodium (Chloride) 100 mls @ 100 mls/hr IVPB Q8H RIRI; Protocol Last Admin: 08/17/18 05:54 Dose: 100 mls/hr Vancomycin/Sodium Chloride (Vancomycin 1 Gm/Ns 200 Ml) 1 gm in 200 mls @ 166.7 mls/hr IVPB Q24H RIRI; Protocol Stop: 08/21/18 15:31 Last Admin: 08/16/18 15:50 Dose: 166.7 mls/hr Lactobacillus Acidophilus (Bacid Acidophilus) 1 cap PO BID RIRI Last Admin: 08/17/18 09:13 Dose: 1 cap Pantoprazole Sodium (Protonix Ec Tab) 40 mg PO DAILY [facility] Last Admin: 08/17/18 09:13 Dose: 40 mg Tamsulosin HCl (Flomax) 0.4 mg PO BID RIRI Last Admin: 08/17/18 09:13 Dose: 0.4 mg - Labs Labs: 08/17/18 06:01 08/17/18 06:01
--- NOTE | 2018-08-17 15:40 | CP.PCM.PN ---
Subjective - Date & Time of Evaluation Date of Evaluation: 08/17/18 Time of Evaluation: 15:37 - Subjective Subjective: seen still in icu comfortable today breathing beter no pain Objective - Vital Signs/Intake and Output Vital Signs (last 24 hours): Temp Pulse Resp BP Pulse Ox 98.0 F 77 25 H 119/66 97 08/17/18 12:00 08/17/18 15:01 08/17/18 15:01 08/17/18 15:01 08/17/18 15:01 Intake and Output: 08/17/18 08/17/18 06:59 18:59 Intake Total 500 1240 Output Total 675 400 Balance -175 840 - Medications Medications: Current Medications Acetaminophen (Tylenol 325mg Tab) 650 mg PO Q6 PRN PRN Reason: Fever >100.4 F or Pain Last Admin: 08/16/18 21:07 Dose: 650 mg Albuterol/Ipratropium (Duoneb 3 Mg/0.5 Mg (3 Ml) Ud) 3 ml INH RQ6 PRN PRN Reason: Shortness of Breath Last Admin: 08/16/18 21:45 Dose: 3 ml Heparin Sodium (Porcine) (Heparin) 5,000 units SC Q8 RIRI Last Admin: 08/17/18 14:43 Dose: 5,000 units Meropenem 1 gm/ Sodium (Chloride) 100 mls @ 100 mls/hr IVPB Q8H RIRI; Protocol Last Admin: 08/17/18 14:42 Dose: 100 mls/hr Vancomycin/Sodium Chloride (Vancomycin 1 Gm/Ns 200 Ml) 1 gm in 200 mls @ 166.7 mls/hr IVPB Q24H RIRI; Protocol Stop: 08/21/18 15:31 Last Admin: 08/16/18 15:50 Dose: 166.7 mls/hr Lactobacillus Acidophilus (Bacid Acidophilus) 1 cap PO BID RIRI Last Admin: 08/17/18 09:13 Dose: 1 cap Pantoprazole Sodium (Protonix Ec Tab) 40 mg PO DAILY RIRI Last Admin: 08/17/18 09:13 Dose: 40 mg Tamsulosin HCl (Flomax) 0.4 mg PO BID RIRI Last Admin: 08/17/18 09:13 Dose: 0.4 mg - Labs Labs: 08/17/18 06:01 11/07/18 06:01 - Constitutional Appears: Non-toxic - Head Exam Head Exam: NORMAL INSPECTION - Eye Exam Eye Exam: Normal appearance Pupil Exam: NORMAL ACCOMODATION - ENT Exam ENT Exam: Mucous Membranes Moist - Neck Exam Neck Exam: Normal Inspection - Respiratory Exam Respiratory Exam: Decreased Breath Sounds - Cardiovascular Exam Cardiovascular Exam: REGULAR RHYTHM - GI/Abdominal Exam GI & Abdominal Exam: Normal Bowel Sounds - Extremities Exam Extremities Exam: Full ROM - Neurological Exam Neurological Exam: Alert, Awake, Oriented x3 - Psychiatric Exam Psychiatric exam: Normal Mood - Skin Skin Exam: Dry, Intact Assessment and Plan - Assessment and Plan (Free Text) Assessment: ac pyelonephritis pleural efusion s/p thoracocentesis breathing improved chf Plan: cont as per orders
[2018-08-17] MEDS: Vancomycin 1 gm/NS 200 ml 1 GM/200 ML BAG IVPB SCH (16:11)
[2018-08-17] MEDS: Albuterol-Ipratrop 3 mg / 0.5 (3 ml) UD INH PRN (21:33)
--- NOTE | 2018-08-17 22:54 | CP.PCM.PN ---
Subjective - Date & Time of Evaluation Date of Evaluation: 08/17/18 Time of Evaluation: 16:20 - Subjective Subjective: dictated Objective - Vital Signs/Intake and Output Vital Signs (last 24 hours): Temp Pulse Resp BP Pulse Ox 98 F 66 20 121/74 99 08/17/18 16:00 08/17/18 18:04 08/17/18 16:00 08/17/18 16:00 08/17/18 16:00 Intake and Output: 08/17/18 08/18/18 18:59 06:59 Intake Total 1240 400 Output Total 400 Balance 840 400 - Medications Medications: Current Medications Acetaminophen (Tylenol 325mg Tab) 650 mg PO Q6 PRN PRN Reason: Fever >100.4 F or Pain Last Admin: 08/16/18 21:07 Dose: 650 mg Albuterol/Ipratropium (Duoneb 3 Mg/0.5 Mg (3 Ml) Ud) 3 ml INH RQ6 PRN PRN Reason: Shortness of Breath Last Admin: 08/17/18 21:33 Dose: 3 ml Heparin Sodium (Porcine) (Heparin) 5,000 units SC Q8 RIRI Last Admin: 08/17/18 21:08 Dose: 5,000 units Meropenem 1 gm/ Sodium (Chloride) 100 mls @ 100 mls/hr IVPB Q8H RIRI; Protocol Last Admin: 08/17/18 21:08 Dose: 100 mls/hr Vancomycin/Sodium Chloride (Vancomycin 1 Gm/Ns 200 Ml) 1 gm in 200 mls @ 166.7 mls/hr IVPB Q24H RIRI; Protocol Stop: 08/21/18 15:31 Last Admin: 08/17/18 16:11 Dose: 166.7 mls/hr Lactobacillus Acidophilus (Bacid Acidophilus) 1 cap PO BID RIRI Last Admin: 08/17/18 17:03 Dose: 1 cap Pantoprazole Sodium (Protonix Ec Tab) 40 mg PO DAILY RIRI Last Admin: 08/17/18 09:13 Dose: 40 mg Tamsulosin HCl (Flomax) 0.4 mg PO BID RIRI Last Admin: 08/17/18 17:03 Dose: 0.4 mg - Labs Labs: 08/17/18 06:01 08/17/18 06:01
--- NOTE | 2018-08-18 00:04 | CP.PCM.PN ---
Subjective - Date & Time of Evaluation Date of Evaluation: 08/17/18 Time of Evaluation: 17:25 - Subjective Subjective: Patient was seen and examined. denies chest pain and dyspnea Bradycardia improved Physical Examination - Physical Exam Head: Positive for: Atraumatic, Normocephalic Pupils: Positive for: PERRL Extroacular Muscles: Positive for: EOMI Conjunctiva: Positive for: Normal Mouth: Positive for: Moist Mucous Membranes Neck: Positive for: Normal Range of Motion Respiratory/Chest: Positive for: Clear to Auscultation. Negative for: Respiratory Distress Cardiovascular: Positive for: Regular Rate and Rhythm, Normal S1, S2, Bradycardic. Negative for: Murmurs Abdomen: Negative for: Tenderness, Distention, Peritoneal Signs Back: Negative for: CVA Tenderness Upper Extremity: Positive for: Normal Inspection Lower Extremity: Positive for: Normal Inspection Neurological: Positive for: GCS=15, CN II-XII Intact, Speech Normal Skin: Positive for: Warm, Dry, Normal Color Psychiatric: Positive for: Alert, Oriented x 3, Normal Concentration Review of Systems - Review of Systems All systems: reviewed and no additional remarkable complaints except - Constitutional Constitutional: Fever. absent: Chills, Sweats - EENT Eyes: UNREMARKABLE. absent: Change in Vision Ears: UNREMARKABLE Nose/Mouth/Throat: UNREMARKABLE. absent: Nasal Congestion, Sore Throat - Cardiovascular Cardiovascular: UNREMARKABLE. absent: Chest Pain, Dyspnea, Palpitations - Respiratory Respiratory: UNREMARKABLE. absent: Cough, Dyspnea, Wheezing - Gastrointestinal Gastrointestinal: Diarrhea. absent: Abdominal Pain, Constipation, Nausea, Vomi ting - Genitourinary Genitourinary: absent: Dysuria, Hematuria - Musculoskeletal Musculoskeletal: UNREMARKABLE - Integumentary Integumentary: UNREMARKABLE. absent: Lesions - Neurological Neurological: UNREMARKABLE - Psychiatric Psychiatric: UNREMARKABLE - Endocrine Endocrine: UNREMARKABLE - Hematologic/Lymphatic Hematologic: UNREMARKABLE Assessment/Plan - Assessment and Plan (Free Text) Assessment: Patient is a 77 yo male without significant PMH who presented with fever and abdominal pain. Patient was admitted for pyelonephritis. [employer] REH[employer]ILITATION COUNSELOR was called on 08/12 for hypotension and patient was transferred to the ICU. He was treated with broad spectrum IV abx and his vitals remained stable, so he was transferred back to med/surg over the weekend. On 08/15, an [employer] COUNSELOR was called for respiratory distress. Patient was transferred back to the ICU for PRN BiPAP, bradycardia, and hypotension. Patient's urine and blood cultures grew Klebsiella. Patient is now saturating well on NC. He continues to be febrile. His b/l pleural effusions are decreasing. Plan: Neuro: - No acute issues - Monitor mental status CV: Pericardial effusion - CT chest/abd/pelvis 08/15: sm-med pericardial effusion - Echo 08/12: EF >70%, no significant abnormalities - Repeat Echo: small concentric pericardial effusion, no tamponade Bradycardia - EKG: low voltage, sinus bradycardia - KENNEDY x3 negative - TSH wnl - Cardiology consulted (Eulalio) Pulm: - [employer] COUNSELOR for respiratory distress on 08/15- resolved - ABG 7AM: pH 7.16, pCO2 47, pO2 163, lactate 6 - ABG 4PM: pH 7.45, pCO2 26, pO2 72 - Maintain spO2>92%- NC or BiPAP PRN - CT chest/abd/pelvis 08/15: moderately large b/l pleural effusions - CXR 08/16: pleural effusions improved - Discontinue IVF GI: - Diarrhea - C. diff pending - Florastor 250 mg PO BID - Heart healthy diet : - CT A/P 08/12: no urolithiasis or evidence of recently passed calculus, bladder wall thickening - CT chest/abd/pelvis 08/15: b/l renal cysts, no change in liver cyst, urinary bladder wall thickening - BUN, Cr wnl - I's & O's - Replete electrolytes PRN - Flomax 0.4 mg PO BID - PSA elevated (7.82) - Urology consulted (Kamala Mcfadden) - Nephrology consulted (Rikki) Endo: - Maintain euglycemia - TSH wnl Heme: - Anemia- Hgb stable (11.4) - Monitor H&H ID: Septic shock (bacteremia)- suspect 2/2 cystitis - [employer] COUNSELOR for hypotension on 08/12 - Off pressors - Febrile- Tmax 103 - Tylenol 650 mg PO Q6H PRN - Lactate elevated (6) - Procal elevated (31.91) - Leukocytosis resolved - Blood, urine Cx- Klebsiella pneumoniae - Gentamicin 80 mg IV Q8H - Meropenem 1 g IV Q8H - Vancomycin 1 g IV Q12H - F/u trough - Florastor 250 mg PO BID - ID consulted (El) Ppx: VTE: SCDs, heparin 5000 units SC Q8H GI: PTX 40 mg PO daily Objective - Vital Signs/Intake and Output Vital Signs (last 24 hours): Temp Pulse Resp BP Pulse Ox 98 F 66 20 121/74 99 08/17/18 16:00 08/17/18 18:04 08/17/18 16:00 08/17/18 16:00 08/17/18 16:00 Intake and Output: 08/17/18 08/18/18 18:59 06:59 Intake Total 1240 400 Output Total 400 Balance 840 400 - Medications Medications: Current Medications Acetaminophen (Tylenol 325mg Tab) 650 mg PO Q6 PRN PRN Reason: Fever >100.4 F or Pain Last Admin: 08/16/18 21:07 Dose: 650 mg Albuterol/Ipratropium (Duoneb 3 Mg/0.5 Mg (3 Ml) Ud) 3 ml INH RQ6 PRN PRN Reason: Shortness of Breath Last Admin: 08/17/18 21:33 Dose: 3 ml Heparin Sodium (Porcine) (Heparin) 5,000 units SC Q8 [facility] Last Admin: 08/17/18 21:08 Dose: 5,000 units Meropenem 1 gm/ Sodium (Chloride) 100 mls @ 100 mls/hr IVPB Q8H [facility]; Protocol Last Admin: 08/17/18 21:08 Dose: 100 mls/hr Vancomycin/Sodium Chloride (Vancomycin 1 Gm/Ns 200 Ml) 1 gm in 200 mls @ 166.7 mls/hr IVPB Q24H [facility]; Protocol Stop: 08/21/18 15:31 Last Admin: 08/17/18 16:11 Dose: 166.7 mls/hr Lactobacillus Acidophilus (Bacid Acidophilus) 1 cap PO BID [facility] Last Admin: 08/17/18 17:03 Dose: 1 cap Pantoprazole Sodium (Protonix Ec Tab) 40 mg PO DAILY [facility] Last Admin: 08/17/18 09:13 Dose: 40 mg Tamsulosin HCl (Flomax) 0.4 mg PO BID [facility] Last Admin: 08/17/18 17:03 Dose: 0.4 mg - Labs Labs: 08/17/18 06:01 08/17/18 06:01
--- NOTE | 2018-08-18 01:16 | PN ---
DATE: 08/17/2018 SUBJECTIVE: The patient was seen today. He was feeling a little better. He denied any pain. He was breathing easier. We had to discontinue gentamicin as the trough was high at 2.2. PHYSICAL EXAMINATION VITAL SIGNS: T-max is 98, pulse is 68, blood pressure is 121/74, respirations are 20. He is afebrile. HEENT: Head is atraumatic and normocephalic. NECK: Supple. LUNGS: Clear. No crackles or rales present. HEART: S1 and S2 regular. ABDOMEN: Soft, nontender. No guarding, no rigidity present. EXTREMITIES: No edema, clubbing or cyanosis. LABORATORY DATA: White count is 6.3. Temperature is normal right now. Creatinine is 0.7. The patient has Klebsiella septicemia and also was having pneumonia was transferred to the ICU. He remains on antibiotics. Since he came in, he has been on meropenem, which is on 08/12/2018, so it is like just 5 days, and he will need nine more days of IV antibiotic, this is meropenem. He should probably go to rehab as I do not think he can do this himself at home. He already has a PICC line negative cultures which are there. He also had an echocardiogram. The echo did not show any small concentric pericardial effusion, no tamponade physiologically seen, did not have a mention about any vegetation. So at this time, we will continue meropenem and we will follow. Rajesh Gallegos MD
[2018-08-18] MEDS: Meropenem 1 GM in Sodium Chloride 0.9% 100 ML IVPB SCH ×3 (05:14→21:13)
--- NOTE | 2018-08-18 06:38 | CON ---
DATE: 08/15/2018 CONSULTATION REQUESTED BY: Lorna Mcnamara MD. REASON FOR CONSULTATION: Urinary tract infection. HISTORY OF PRESENT ILLNESS: The patient is a 77-year-old male with urinary tract infection. The patient is in otherwise fair health. The patient was admitted to the hospital with abdominal pain. He has no nausea or vomiting. He reports no difficulty voiding. The patient reports no hematuria, no dysuria. The patient has occasional back pain, which has improved since admission. The patient was found to have urinary tract infection. He had Klebsiella bacteriuria as well as Klebsiella bacteremia. The patient reports nocturia three to four times per night. The patient also reports dysuria. The patient has good appetite. On admission, the patient was found to have leukocytosis. White blood count of 60,600. The patient has had intermittent fever during this admission. The patient reports no history of previous urinary tract infection. No history of previous urolithiasis. The patient reports that he is feeling better overall since admission. The patient reports no history of diabetes. No history of hypertension. The patient reports no previous history of surgery. The patient was treated for sepsis since admission. PHYSICAL EXAMINATION: GENERAL: The patient is a well-developed, well-nourished male, appearing younger than his stated age. VITAL SIGNS: See attached. Fever noted as well. Maximum temperature was 103 degrees Fahrenheit this morning. ABDOMEN: Soft, nontender, nondistended. No mass or organomegaly. BACK: No CVA tenderness. GENITALIA: Normal male. Scrotal contents without inflammation. Testes descended bilaterally. RECTAL: Normal sphincter tone. Prostate is mildly enlarged, approximately 30 to 40 g in size, without fixation, induration, or nodularity. LABORATORY DATA: See attached reports. CAT scan is reviewed as well. IMPRESSION: A 77-year-old male with urinary tract infection. The patient has bacteriuria as well as bacteremia. Etiology of urinary tract infection is possibly due to bladder outlet obstruction. Also possible is prostate disease either contributing to infection with obstruction or as the actual source of infection. Also possible is upper urinary tract disease as well as urolithiasis either of the upper or lower urinary tract. RECOMMENDATION AND PLAN: Continue antibiotic therapy. Repeat urine culture and urinalysis. Serum PSA, which may help localize the infection. Flomax as empiric therapy. Check postvoid residual with bladder scan. Further therapy to follow according to the patient's clinical course as well as results of above. Thank you for recommending the patient for urology consultation. Rosanna Mcfadden MD cc: Lorna Mcnamara MD
[2018-08-18 07:17] LABS: ALBUMIN 2.9 g/dL (3.5-5.0); ALT/SGPT 51 U/L (21-72); AST/SGOT 41 U/L (17-59); BLOOD UREA NITROGEN 11 mg/dL (9-20); GFR NON-AFRICAN AMERICAN > 60
[2018-08-18 07:19] LABS: BASO % 0.6 % (0.0-2.0); EOS # 0.4 K/uL (0.0-0.7); EOS % 4.7 % (0.0-4.0); HEMOGLOBIN 12.4 g/dL (12.0-18.0); LYMPH # 2.3 K/uL (1.0-4.3); LYMPH % 30.9 % (20.0-40.0); MEAN CELL VOLUME 91.4 fL (80.0-94.0); MEAN CORPUSCULAR HEMOGLOBIN 31.5 pg (27.0-31.0); MEAN CORPUSCULAR HGB CONC 34.5 g/dL (33.0-37.0); MONO # 0.9 K/uL (0.0-0.8); MONO % 11.8 % (0.0-10.0); NEUT # 3.9 K/uL (1.8-7.0); NRBC % 0.1 % (0.0-2.0); RBC 3.94 Mil/uL (4.40-5.90); RED CELL DISTRIBUTION WIDTH 13.8 % (11.5-14.5); WHITE BLOOD COUNT 7.6 K/uL (4.8-10.8)
[2018-08-18] MEDS: Pantoprazole 40 mg EC Tab PO SCH (10:11)
[2018-08-18] MEDS: Lactobacillus Acidophilus 500 MU Cap PO SCH ×2 (10:11→18:20)
[2018-08-18] MEDS: Vancomycin 1 gm/NS 200 ml 1 GM/200 ML BAG IVPB SCH (16:01)
[2018-08-18 17:02] VITALS: RESP 20
--- NOTE | 2018-08-18 17:18 | CP.PCM.PN ---
Subjective - Date & Time of Evaluation Date of Evaluation: 08/18/18 Time of Evaluation: 17:16 - Subjective Subjective: pt feels beter Objective - Vital Signs/Intake and Output Vital Signs (last 24 hours): Temp Pulse Resp BP Pulse Ox 97.4 F L 90 20 110/73 96 08/18/18 17:01 08/18/18 17:01 08/18/18 17:01 08/18/18 17:01 08/18/18 17:01 Intake and Output: 08/18/18 08/18/18 06:59 18:59 Intake Total 1000 500 Output Total 1000 Balance 0 500 - Medications Medications: Current Medications Acetaminophen (Tylenol 325mg Tab) 650 mg PO Q6 PRN PRN Reason: Fever >100.4 F or Pain Last Admin: 08/16/18 21:07 Dose: 650 mg Albuterol/Ipratropium (Duoneb 3 Mg/0.5 Mg (3 Ml) Ud) 3 ml INH RQ6 PRN PRN Reason: Shortness of Breath Last Admin: 08/17/18 21:33 Dose: 3 ml Heparin Sodium (Porcine) (Heparin) 5,000 units SC Q8 [facility] Last Admin: 08/18/18 14:50 Dose: 5,000 units Meropenem 1 gm/ Sodium (Chloride) 100 mls @ 100 mls/hr IVPB Q8H [facility]; Protocol Last Admin: 08/18/18 14:50 Dose: 100 mls/hr Vancomycin/Sodium Chloride (Vancomycin 1 Gm/Ns 200 Ml) 1 gm in 200 mls @ 166.7 mls/hr IVPB Q24H [facility]; Protocol Stop: 08/21/18 15:31 Last Admin: 08/18/18 16:01 Dose: 166.7 mls/hr Lactobacillus Acidophilus (Bacid Acidophilus) 1 cap PO BID [facility] Last Admin: 08/18/18 10:11 Dose: 1 cap Pantoprazole Sodium (Protonix Ec Tab) 40 mg PO DAILY [facility] Last Admin: 08/18/18 10:11 Dose: 40 mg Tamsulosin HCl (Flomax) 0.4 mg PO BID [facility] Last Admin: 08/18/18 10:11 Dose: 0.4 mg - Labs Labs: 08/18/18 06:59 08/18/18 06:59 - Constitutional Appears: Non-toxic - Head Exam Head Exam: NORMAL INSPECTION - Eye Exam Eye Exam: Normal appearance - ENT Exam ENT Exam: Mucous Membranes Moist - Respiratory Exam Respiratory Exam: NORMAL BREATHING PATTERN - Cardiovascular Exam Cardiovascular Exam: REGULAR RHYTHM - GI/Abdominal Exam GI & Abdominal Exam: Normal Bowel Sounds - Exam Exam: NORMAL INSPECTION - Extremities Exam Extremities Exam: Full ROM - Neurological Exam Neurological Exam: Normal Gait - Skin Skin Exam: Normal Color Assessment and Plan - Assessment and Plan (Free Text) Assessment: generalised weekness Plan: cont iv antibiotis arange for ir[facility]
--- NOTE | 2018-08-18 19:57 | PCM.URO ---
Urology Progress Note - General General: No Complaints, Tolerating Diet - Subjective Abdominal Pain: No Flank Pain: No Nausea: No Vomiting: No Voiding Well: Yes Dysuria: No Hematuria: No Urinary Urgency: No Frequency: No Good Stream: Yes Stone Passed: No Dsypnea: No Chest Pain: No Fever & Chills: No - Objective Lab Results Last 24 Hours: Laboratory Results - last 24 hr 08/18/18 08/18/18 06:59 06:59 WBC 7.6 RBC 3.94 L Hgb 12.4 Hct 36.0 MCV 91.4 MCH 31.5 H MCHC 34.5 RDW 13.8 Plt Count 174 MPV 10.0 Neut % (Auto) 52.0 Lymph % (Auto) 30.9 [place] % (Auto) 11.8 H Eos % (Auto) 4.7 H Baso % (Auto) 0.6 Neut # (Auto) 3.9 Lymph # (Auto) 2.3 [place] # (Auto) 0.9 H Eos # (Auto) 0.4 Baso # (Auto) 0.0 Sodium 138 Potassium 4.2 Chloride 105 Carbon Dioxide 25 Anion Gap 12 BUN 11 Creatinine 0.8 Est GFR ( Amer) > 60 Est GFR (Non-Af Amer) > 60 Random Glucose 94 Calcium 8.0 L Phosphorus 2.3 L Magnesium 2.1 Total Bilirubin 0.5 AST 41 ALT 51 Alkaline Phosphatase 111 Total Protein 6.0 L Albumin 2.9 L Globulin 3.1 Albumin/Globulin Ratio 1.0 Intake & Output: Intake & Output 08/18/18 08/18/18 08/19/18 06:59 18:59 06:59 Intake Total 1000 500 Output Total 1000 Balance 0 500 Intake: Intake, IV Amount 200 Right Forearm 200 Oral 800 500 Output: Urine 1000 Urine, Voided 1000 Other: # Voids Urine, Voided 1 2 # Bowel Movements 1 1 Vital Signs: Vital Signs - 24 hr 08/17/18 08/17/18 08/18/18 23:28 23:45 07:18 Temperature 97.9 F Pulse Rate 86 65 56 L Respiratory 18 Rate Blood Pressure 103/57 L O2 Sat by Pulse 96 Oximetry 08/18/18 08/18/18 07:35 17:01 Temperature 98.3 F 97.4 F L Pulse Rate 71 90 Respiratory 18 20 Rate Blood Pressure 109/69 110/73 O2 Sat by Pulse 96 96 Oximetry - Physical Exam Abdominal Exam: Soft, Non-Tender, Non-Distended Back: No CVA Tenderness Genitalia: Without Inflammation - Plan Additional Information: IMP: improved overall. UTI. BPH. Rec/P: Continue antibiotics. Continue Tamsulosin. Nursing staff reported that pt will continue outpt antibiotic. Outpt urologic f/u is indicated as well. Discussed w pt. YS - Date & Time of Note Date: 08/18/18 Time: 19:40
--- NOTE | 2018-08-18 23:17 | PN ---
DATE: 08/18/2018 INFECTIOUS DISEASE FOLLOWUP SUBJECTIVE: The patient was feeling better. He has less trouble breathing. He is breathing easier now. OBJECTIVE: VITAL SIGNS: T-max is 97.4, pulse is 90, blood pressure 110/73, respirations are 20. HEENT: Head is atraumatic, normocephalic. LUNGS: Have decreased breath sounds bilaterally but there is no trouble breathing. HEART: S1, S2 regular. ABDOMEN: Soft, nontender. No guarding. No rigidity present. EXTREMITIES: Have no edema. White count is 7.6, hemoglobin 12.4, hematocrit 36, platelet count is 174, BUN is 11, creatinine 0.8. Random level is 94. He was on vancomycin and Merrem. I have discontinued the vancomycin. We will continue meropenem, and he will need meropenem to continue for a total of 14 days. As we started it on 08/12/2018, he needs to continue till 08/26/2018, and he would benefit more by going to the rehab as his respiratory issues will resolve there and will feel better. He was seen by the urologist and urologist plans to assess urinary tract infection, benign prostatic hypertrophy. Continue tamsulosin. The patient will continue outpatient antibiotics, and to follow with the urologist. I would like him to continue Merrem 1 g every 8 hours until 08/26/2018 in the rehab. Rajesh Gallegos MD
[2018-08-19] MEDS: Meropenem 1 GM in Sodium Chloride 0.9% 100 ML IVPB SCH ×2 (05:08→14:33)
--- NOTE | 2018-08-19 07:33 | CP.PCM.PN ---
Subjective - Date & Time of Evaluation Date of Evaluation: 08/18/18 Time of Evaluation: 19:20 - Subjective Subjective: Patient was seen and examined. denies chest pain and dyspnea Bradycardia improved Physical Examination - Physical Exam Head: Positive for: Atraumatic, Normocephalic Pupils: Positive for: PERRL Extroacular Muscles: Positive for: EOMI Conjunctiva: Positive for: Normal Mouth: Positive for: Moist Mucous Membranes Neck: Positive for: Normal Range of Motion Respiratory/Chest: Positive for: Clear to Auscultation. Negative for: Respiratory Distress Cardiovascular: Positive for: Regular Rate and Rhythm, Normal S1, S2, Bradycardic. Negative for: Murmurs Abdomen: Negative for: Tenderness, Distention, Peritoneal Signs Back: Negative for: CVA Tenderness Upper Extremity: Positive for: Normal Inspection Lower Extremity: Positive for: Normal Inspection Neurological: Positive for: GCS=15, CN II-XII Intact, Speech Normal Skin: Positive for: Warm, Dry, Normal Color Psychiatric: Positive for: Alert, Oriented x 3, Normal Concentration Review of Systems - Review of Systems All systems: reviewed and no additional remarkable complaints except - Constitutional Constitutional: Fever. absent: Chills, Sweats - EENT Eyes: UNREMARKABLE. absent: Change in Vision Ears: UNREMARKABLE Nose/Mouth/Throat: UNREMARKABLE. absent: Nasal Congestion, Sore Throat - Cardiovascular Cardiovascular: UNREMARKABLE. absent: Chest Pain, Dyspnea, Palpitations - Respiratory Respiratory: UNREMARKABLE. absent: Cough, Dyspnea, Wheezing - Gastrointestinal Gastrointestinal: Diarrhea. absent: Abdominal Pain, Constipation, Nausea, Vomi ting - Genitourinary Genitourinary: absent: Dysuria, Hematuria - Musculoskeletal Musculoskeletal: UNREMARKABLE - Integumentary Integumentary: UNREMARKABLE. absent: Lesions - Neurological Neurological: UNREMARKABLE - Psychiatric Psychiatric: UNREMARKABLE - Endocrine Endocrine: UNREMARKABLE - Hematologic/Lymphatic Hematologic: UNREMARKABLE Assessment/Plan - Assessment and Plan (Free Text) Assessment: Patient is a 77 yo male without significant PMH who presented with fever and abdominal pain. Patient was admitted for pyelonephritis. DIRECTOR OF BLOOD was called on 08/12 for hypotension and patient was transferred to the ICU. He was treated with broad spectrum IV abx and his vitals remained stable, so he was transferred back to med/surg over the weekend. On 08/15, an DIRECTOR OF BLOOD was called for respiratory distress. Patient was transferred back to the ICU for PRN BiPAP, bradycardia, and hypotension. Patient's urine and blood cultures grew Klebsiella. Patient is now saturating well on NC. He continues to be febrile. His b/l pleural effusions are decreasing. Plan: Neuro: - No acute issues - Monitor mental status CV: Pericardial effusion - CT chest/abd/pelvis 08/15: sm-med pericardial effusion - Echo 08/12: EF >70%, no significant abnormalities - Repeat Echo: small concentric pericardial effusion, no tamponade Bradycardia - EKG: low voltage, sinus bradycardia - KENNEDY x3 negative - TSH wnl - Cardiology consulted (Eulalio) Pulm: - DIRECTOR OF BLOOD for respiratory distress on 08/15- resolved - ABG 7AM: pH 7.16, pCO2 47, pO2 163, lactate 6 - ABG 4PM: pH 7.45, pCO2 26, pO2 72 - Maintain spO2>92%- NC or BiPAP PRN - CT chest/abd/pelvis 08/15: moderately large b/l pleural effusions - CXR 08/16: pleural effusions improved - Discontinue IVF GI: - Diarrhea - C. diff pending - Florastor 250 mg PO BID - Heart healthy diet : - CT A/P 08/12: no urolithiasis or evidence of recently passed calculus, bladder wall thickening - CT chest/abd/pelvis 08/15: b/l renal cysts, no change in liver cyst, urinary bladder wall thickening - BUN, Cr wnl - I's & O's - Replete electrolytes PRN - Flomax 0.4 mg PO BID - PSA elevated (7.82) - Urology consulted (Kamala Mcfadden) - Nephrology consulted (Rikki) Endo: - Maintain euglycemia - TSH wnl Heme: - Anemia- Hgb stable (11.4) - Monitor H&H ID: Septic shock (bacteremia)- suspect 2/2 cystitis - DIRECTOR OF BLOOD for hypotension on 08/12 - Off pressors - Febrile- Tmax 103 - Tylenol 650 mg PO Q6H PRN - Lactate elevated (6) - Procal elevated (31.91) - Leukocytosis resolved - Blood, urine Cx- Klebsiella pneumoniae - Gentamicin 80 mg IV Q8H - Meropenem 1 g IV Q8H - Vancomycin 1 g IV Q12H - F/u trough - Florastor 250 mg PO BID - ID consulted (El) Ppx: VTE: SCDs, heparin 5000 units SC Q8H GI: PTX 40 mg PO daily Objective - Vital Signs/Intake and Output Vital Signs (last 24 hours): Temp Pulse Resp BP Pulse Ox 98 F 65 20 113/65 98 08/18/18 23:55 08/18/18 23:55 08/18/18 23:55 08/18/18 23:55 08/18/18 23:55 Intake and Output: 08/19/18 08/19/18 06:59 18:59 Intake Total 1350 Output Total 1575 Balance -225 - Medications Medications: Current Medications Acetaminophen (Tylenol 325mg Tab) 650 mg PO Q6 PRN PRN Reason: Fever >100.4 F or Pain Last Admin: 08/16/18 21:07 Dose: 650 mg Albuterol/Ipratropium (Duoneb 3 Mg/0.5 Mg (3 Ml) Ud) 3 ml INH RQ6 PRN PRN Reason: Shortness of Breath Last Admin: 08/17/18 21:33 Dose: 3 ml Heparin Sodium (Porcine) (Heparin) 5,000 units SC Q8 [facility] Last Admin: 08/19/18 05:07 Dose: 5,000 units Meropenem 1 gm/ Sodium (Chloride) 100 mls @ 100 mls/hr IVPB Q8H [facility]; Protocol Last Admin: 08/19/18 05:08 Dose: 100 mls/hr Lactobacillus Acidophilus (Bacid Acidophilus) 1 cap PO BID [facility] Last Admin: 08/18/18 18:20 Dose: 1 cap Pantoprazole Sodium (Protonix Ec Tab) 40 mg PO DAILY [facility] Last Admin: 08/18/18 10:11 Dose: 40 mg Tamsulosin HCl (Flomax) 0.4 mg PO BID [facility] Last Admin: 08/18/18 18:20 Dose: 0.4 mg - Labs Labs: 08/18/18 06:59 08/18/18 06:59
[2018-08-19] MEDS: Pantoprazole 40 mg EC Tab PO SCH (09:51)
[2018-08-19] MEDS: Lactobacillus Acidophilus 500 MU Cap PO SCH ×2 (09:51→18:00)
--- NOTE | 2018-08-19 12:45 | CP.PCM.PN ---
Subjective - Date & Time of Evaluation Date of Evaluation: 08/19/18 Time of Evaluation: 12:42 - Subjective Subjective: pt feels beter no fever no pain but need to cont iv antibiotics will await trasfer to [facility] Objective - Vital Signs/Intake and Output Vital Signs (last 24 hours): Temp Pulse Resp BP Pulse Ox 97.6 F 78 20 113/70 95 08/19/18 08:00 08/19/18 08:00 08/19/18 08:00 08/19/18 08:00 08/19/18 08:00 Intake and Output: 08/19/18 08/19/18 06:59 18:59 Intake Total 1350 Output Total 1575 Balance -225 - Medications Medications: Current Medications Acetaminophen (Tylenol 325mg Tab) 650 mg PO Q6 PRN PRN Reason: Fever >100.4 F or Pain Last Admin: 08/16/18 21:07 Dose: 650 mg Albuterol/Ipratropium (Duoneb 3 Mg/0.5 Mg (3 Ml) Ud) 3 ml INH RQ6 PRN PRN Reason: Shortness of Breath Last Admin: 08/17/18 21:33 Dose: 3 ml Heparin Sodium (Porcine) (Heparin) 5,000 units SC Q8 [facility] Last Admin: 08/19/18 05:07 Dose: 5,000 units Meropenem 1 gm/ Sodium (Chloride) 100 mls @ 100 mls/hr IVPB Q8H [facility]; Protocol Last Admin: 08/19/18 05:08 Dose: 100 mls/hr Lactobacillus Acidophilus (Bacid Acidophilus) 1 cap PO BID [facility] Last Admin: 08/19/18 09:51 Dose: 1 cap Pantoprazole Sodium (Protonix Ec Tab) 40 mg PO DAILY [facility] Last Admin: 08/19/18 09:51 Dose: 40 mg Tamsulosin HCl (Flomax) 0.4 mg PO BID [facility] Last Admin: 08/19/18 09:51 Dose: 0.4 mg - Labs Labs: 08/18/18 06:59 08/18/18 06:59 - Constitutional Appears: Non-toxic - Head Exam Head Exam: NORMAL INSPECTION - Eye Exam Eye Exam: Normal appearance Pupil Exam: NORMAL ACCOMODATION - ENT Exam ENT Exam: Mucous Membranes Moist - Neck Exam Neck Exam: Full ROM - Respiratory Exam Respiratory Exam: Clear to Ausculation Bilateral - Cardiovascular Exam Cardiovascular Exam: REGULAR RHYTHM - GI/Abdominal Exam GI & Abdominal Exam: Soft - Rectal Exam Rectal Exam: NORMAL INSPECTION - Exam Exam: NORMAL INSPECTION - Extremities Exam Extremities Exam: Full ROM, Normal Inspection - Back Exam Back Exam: NORMAL INSPECTION - Neurological Exam Neurological Exam: Normal Gait, Oriented x3 - Psychiatric Exam Psychiatric exam: Normal Affect - Skin Skin Exam: Normal Color Assessment and Plan - Assessment and Plan (Free Text) Assessment: s/p ac pyelonephritis need cont iv antibiotics Plan: dc to [facility]
--- NOTE | 2018-08-19 13:22 | CP.PCM.PN ---
Subjective - Date & Time of Evaluation Date of Evaluation: 08/19/18 Time of Evaluation: 13:20 - Subjective Subjective: dictated Objective - Vital Signs/Intake and Output Vital Signs (last 24 hours): Temp Pulse Resp BP Pulse Ox 97.6 F 78 20 113/70 95 08/19/18 08:00 08/19/18 08:00 08/19/18 08:00 08/19/18 08:00 08/19/18 08:00 Intake and Output: 08/19/18 08/19/18 06:59 18:59 Intake Total 1350 Output Total 1575 Balance -225 - Medications Medications: Current Medications Acetaminophen (Tylenol 325mg Tab) 650 mg PO Q6 PRN PRN Reason: Fever >100.4 F or Pain Last Admin: 08/16/18 21:07 Dose: 650 mg Albuterol/Ipratropium (Duoneb 3 Mg/0.5 Mg (3 Ml) Ud) 3 ml INH RQ6 PRN PRN Reason: Shortness of Breath Last Admin: 08/17/18 21:33 Dose: 3 ml Heparin Sodium (Porcine) (Heparin) 5,000 units SC Q8 [facility] Last Admin: 08/19/18 05:07 Dose: 5,000 units Meropenem 1 gm/ Sodium (Chloride) 100 mls @ 100 mls/hr IVPB Q8H [facility]; Protocol Last Admin: 08/19/18 05:08 Dose: 100 mls/hr Lactobacillus Acidophilus (Bacid Acidophilus) 1 cap PO BID [facility] Last Admin: 08/19/18 09:51 Dose: 1 cap Pantoprazole Sodium (Protonix Ec Tab) 40 mg PO DAILY [facility] Last Admin: 08/19/18 09:51 Dose: 40 mg Tamsulosin HCl (Flomax) 0.4 mg PO BID [facility] Last Admin: 08/19/18 09:51 Dose: 0.4 mg - Labs Labs: 08/18/18 06:59 08/18/18 06:59
[2018-08-19 15:51] VITALS: BP 112/63; PULSE 80; TEMP 98.1; O2SAT 96
--- NOTE | 2018-08-19 19:06 | PN ---
DATE: 08/19/2018 SUBJECTIVE: The patient is feeling little better right now, and he is breathing easier. He still is with the oxygen on and needs IV antibiotics. He will be transferred to rehab for IV antibiotics. PHYSICAL EXAMINATION VITAL SIGNS: T-max is 97.6 today, pulse 78, blood pressure is 113/70, respirations are 20, saturations 95%. HEENT: Head is atraumatic, normocephalic. NECK: Supple. LUNGS: Decreased breath sounds bilaterally. HEART: S1, S2 are regular. ABDOMEN: Soft, nontender. No guarding, no rigidity present. EXTREMITIES: Have no edema. ASSESSMENT AND PLAN: He denies any trouble now voiding and he was admitted with acute pyelonephritis. He had Klebsiella septicemia secondary to urinary tract infection and had acute pyelonephritis, and also had pneumonia. His last chest x-ray shows clearing of the infiltrate and this shows medial right basilar opacity, possible pneumonia, followup advised. So at this time, he will be going to rehab. He needs to complete till 08/26/2018 the meropenem and need to monitor labs while he is there and once antibiotics are done, the peripherally inserted central catheter line should be discontinued. Rajesh Gallegos MD
--- NOTE | 2018-08-20 10:00 | CP.PCM.PN ---
Subjective - Date & Time of Evaluation Date of Evaluation: 08/19/18 Time of Evaluation: 08:30 - Subjective Subjective: Patient was seen and examined. denies chest pain and dyspnea Bradycardia improved Physical Examination - Physical Exam Head: Positive for: Atraumatic, Normocephalic Pupils: Positive for: PERRL Extroacular Muscles: Positive for: EOMI Conjunctiva: Positive for: Normal Mouth: Positive for: Moist Mucous Membranes Neck: Positive for: Normal Range of Motion Respiratory/Chest: Positive for: Clear to Auscultation. Negative for: Respiratory Distress Cardiovascular: Positive for: Regular Rate and Rhythm, Normal S1, S2, Bradycardic. Negative for: Murmurs Abdomen: Negative for: Tenderness, Distention, Peritoneal Signs Back: Negative for: CVA Tenderness Upper Extremity: Positive for: Normal Inspection Lower Extremity: Positive for: Normal Inspection Neurological: Positive for: GCS=15, CN II-XII Intact, Speech Normal Skin: Positive for: Warm, Dry, Normal Color Psychiatric: Positive for: Alert, Oriented x 3, Normal Concentration Review of Systems - Review of Systems All systems: reviewed and no additional remarkable complaints except - Constitutional Constitutional: Fever. absent: Chills, Sweats - EENT Eyes: UNREMARKABLE. absent: Change in Vision Ears: UNREMARKABLE Nose/Mouth/Throat: UNREMARKABLE. absent: Nasal Congestion, Sore Throat - Cardiovascular Cardiovascular: UNREMARKABLE. absent: Chest Pain, Dyspnea, Palpitations - Respiratory Respiratory: UNREMARKABLE. absent: Cough, Dyspnea, Wheezing - Gastrointestinal Gastrointestinal: Diarrhea. absent: Abdominal Pain, Constipation, Nausea, Vomi ting - Genitourinary Genitourinary: absent: Dysuria, Hematuria - Musculoskeletal Musculoskeletal: UNREMARKABLE - Integumentary Integumentary: UNREMARKABLE. absent: Lesions - Neurological Neurological: UNREMARKABLE - Psychiatric Psychiatric: UNREMARKABLE - Endocrine Endocrine: UNREMARKABLE - Hematologic/Lymphatic Hematologic: UNREMARKABLE Assessment/Plan - Assessment and Plan (Free Text) Assessment: Patient is a 77 yo male without significant PMH who presented with fever and abdominal pain. Patient was admitted for pyelonephritis. APARTMENT HOUSE MANAGER was called on 08/12 for hypotension and patient was transferred to the ICU. He was treated with broad spectrum IV abx and his vitals remained stable, so he was transferred back to med/surg over the weekend. On 08/15, an APARTMENT HOUSE MANAGER was called for respiratory distress. Patient was transferred back to the ICU for PRN BiPAP, bradycardia, and hypotension. Patient's urine and blood cultures grew Klebsiella. Patient is now saturating well on NC. He continues to be febrile. His b/l pleural effusions are decreasing. Plan: Neuro: - No acute issues - Monitor mental status CV: Pericardial effusion - CT chest/abd/pelvis 08/15: sm-med pericardial effusion - Echo 08/12: EF >70%, no significant abnormalities - Repeat Echo: small concentric pericardial effusion, no tamponade Bradycardia - EKG: low voltage, sinus bradycardia - KENNEDY x3 negative - TSH wnl - Cardiology consulted (Eulalio) Pulm: - APARTMENT HOUSE MANAGER for respiratory distress on 08/15- resolved - ABG 7AM: pH 7.16, pCO2 47, pO2 163, lactate 6 - ABG 4PM: pH 7.45, pCO2 26, pO2 72 - Maintain spO2>92%- NC or BiPAP PRN - CT chest/abd/pelvis 08/15: moderately large b/l pleural effusions - CXR 08/16: pleural effusions improved - Discontinue IVF GI: - Diarrhea - C. diff pending - Florastor 250 mg PO BID - Heart healthy diet : - CT A/P 08/12: no urolithiasis or evidence of recently passed calculus, bladder wall thickening - CT chest/abd/pelvis 08/15: b/l renal cysts, no change in liver cyst, urinary bladder wall thickening - BUN, Cr wnl - I's & O's - Replete electrolytes PRN - Flomax 0.4 mg PO BID - PSA elevated (7.82) - Urology consulted (Kamala Mcfadden) - Nephrology consulted (Rikki) Endo: - Maintain euglycemia - TSH wnl Heme: - Anemia- Hgb stable (11.4) - Monitor H&H ID: Septic shock (bacteremia)- suspect 2/2 cystitis - APARTMENT HOUSE MANAGER for hypotension on 08/12 - Off pressors - Febrile- Tmax 103 - Tylenol 650 mg PO Q6H PRN - Lactate elevated (6) - Procal elevated (31.91) - Leukocytosis resolved - Blood, urine Cx- Klebsiella pneumoniae - Gentamicin 80 mg IV Q8H - Meropenem 1 g IV Q8H - Vancomycin 1 g IV Q12H - F/u trough - Florastor 250 mg PO BID - ID consulted (El) Ppx: VTE: SCDs, heparin 5000 units SC Q8H GI: PTX 40 mg PO daily Objective - Vital Signs/Intake and Output Vital Signs (last 24 hours): Temp Pulse Resp BP Pulse Ox 98.1 F 80 20 112/63 96 08/19/18 15:50 08/19/18 15:50 08/19/18 15:50 08/19/18 15:50 08/19/18 15:50 Intake and Output: 08/20/18 08/20/18 06:59 18:59 Intake Total 220 Balance 220 - Labs Labs: 08/18/18 06:59 08/18/18 06:59
--- NOTE | 2018-08-27 00:57 | DS ---
HISTORY: This is a patient who is 77-year-old male, came into the emergency room complaining of upper abdominal pain, mostly right upper quadrant for two days, and he was having nausea and vomiting and diarrhea. The patient has also history of significant gastritis. He has also some discomfort with urination. He has fever of 102.3 on admission, pulse was 113, and blood pressure was 107/67. His pulse oxygen was 99. His labs showed white count is high 16.6, and his sugar was 121. The patient was admitted for possible sepsis, and he did have the culture done, and his urine shows Klebsiella pneumoniae. So he was also seen by Dr. Mcgill for consultation for Infectious Disease, and he was on meropenem 500 mg , and he is getting IV every 8 hours, and he was also on vancomycin and Lactobacillus. He should continue on the medications, and he was improving. He was also seen by Dr. Cristiano Tsai for he has some bradycardia and chest pain. He was in ICU because we were worry about septic shock and was having acute pyelonephritis, fever, and abdominal pain because of the Klebsiella infection. He improved, and his diarrhea was negative for C. diff. He has borderline anemia, and he improved and he was feeling better. He was advised to continue IV antibiotics and to continue all his medications as per ID consult, so he was referred to facility to continue the IV antibiotics there as per , infectious disease doctor recommendation. FINAL DIAGNOSES: Acute pyelonephritis, septic shock, and chronic obstructive pulmonary disease. He has to continue on all his medications and also has benign prostate hypertrophy. Lorna Mcnamara MD
== END 2018-08-19 20:00 | DRG 871 ==
LOC: C.ER 10:13 → C.3T 12:38 → C.9I 16:52 → C.3T 08-14 14:37 → C.9I 08-15 09:53 → C.5S 08-17 16:11
PROVIDERS: ADMIT Internal Medicine; ATTEND Internal Medicine
PROC: 02HV33Z Insertion of Infusion Device into Superior Vena Cava, Percutaneous Approach (ICD-10-PCS; principal; 2018-08-15)
DX: A41.59 Other Gram-negative sepsis (principal); R65.21 Severe sepsis with septic shock; J18.9 Pneumonia, unspecified organism; N12 Tubulo-interstitial nephritis, not specified as acute or chronic; E87.2 Acidosis; I31.3 Pericardial effusion (noninflammatory); N17.9 Acute kidney failure, unspecified; B96.1 Klebsiella pneumoniae [K. pneumoniae] as the cause of diseases classified elsewhere; D64.9 Anemia, unspecified; E11.9 Type 2 diabetes mellitus without complications; I25.10 Atherosclerotic heart disease of native coronary artery without angina pectoris; N40.0 Benign prostatic hyperplasia without lower urinary tract symptoms; I11.0 Hypertensive heart disease with heart failure; Z87.891 Personal history of nicotine dependence; J44.9 Chronic obstructive pulmonary disease, unspecified; I50.9 Heart failure, unspecified

== ENCOUNTER 2018-12-28 08:47 | Emergency (ER) | payer MEDICARE, MEDICAID ==
[2018-12-28 08:48] VITALS: BMI 24.9
[2018-12-28 08:57] VITALS: RESP 18
--- NOTE | 2018-12-28 09:16 | C.PDOC ---
History Of Present Illness 78 year old male presents to the ED via transport for worsening epigastric and left upper quadrant pain for one month. Patient has a history of GERD and reports compliance with GI meds but still complains of "burning" pain. Reports n ausea and vomiting. Denies fever, or any other associated symptoms. VIA TRANS WORSE EPIG/LUQ PAIN X 1 MO. HO GERD, COMPLIANT W GI MEDS BUT STILL W "BURNING" PAIN. +NV. NO FEVER, OTHER ASSOC SX EXAM MILD DIST NONTOXIC HEENT ANICTERIC ABD +MIN EPIG/LUQ TEND SOFT NO R/G REMAINDER NEG Time Seen by Provider: 12/28/18 09:01 Chief Complaint (Nursing): Abdominal Pain History Per: Patient History/Exam Limitations: no limitations Onset/Duration Of Symptoms: Days (1 month ) Location Of Pain/Discomfort: Epigastric, LUQ Quality Of Discomfort: Burning Associated Symptoms: Nausea, Vomiting. denies: Fever, Chills Past Medical History Reviewed: Historical Data, Nursing Documentation, Vital Signs Vital Signs: Last Vital Signs Temp 97.7 F 12/28/18 08:54 Pulse 65 12/28/18 08:54 Resp 18 12/28/18 08:54 BP 111/71 12/28/18 08:54 Pulse Ox 97 12/28/18 08:54 - Medical History PMH: Bronchitis, Gastritis Denies: Chronic Kidney Disease Surgical History: No Surg Hx - [facility] Procedures INSERTION OF INFUSION DEV INTO SUP VENA CAVA, PERC APPROACH (08/12/18) Family History: States: No Known Family Hx - Social History Hx Alcohol Use: No Hx Substance Use: No - Immunization History Hx Tetanus Toxoid Vaccination: No Hx Influenza Vaccination: No Hx Pneumococcal Vaccination: No Review Of Systems Except As Marked, All Systems Reviewed And Found Negative. Constitutional: Negative for: Fever, Chills Cardiovascular: Negative for: Chest Pain Respiratory: Negative for: Shortness of Breath Gastrointestinal: Positive for: Nausea, Vomiting, Abdominal Pain. Negative for: Diarrhea Genitourinary: Negative for: Dysuria, Hematuria Musculoskeletal: Negative for: Back Pain Skin: Negative for: Rash Neurological: Negative for: Headache Physical Exam - Physical Exam Appears: Non-toxic, Other (mild distress) Head: Normacephalic Eye(s): bilateral: PERRL, EOMI, Other (anicteric ) Oral Mucosa: Moist Neck: Supple Cardiovascular: Rhythm Regular Respiratory: Normal Breath Sounds, No Rales, No Rhonchi, No Wheezing Gastrointestinal/Abdominal: Soft, Tenderness (Minimal epigastric/LUQ tenderness ), No Guarding, No Rebound Extremity: Bilateral: Atraumatic, No Pedal Edema, Normal Color And Temperature, Normal ROM Neurological/Psych: Oriented x3, Normal Speech Gait: Steady ED Course And Treatment - Laboratory Results Result Diagrams: 12/28/18 09:28 12/28/18 09:28 O2 Sat by Pulse Oximetry: 97 (RA) Pulse Ox Interpretation: Normal - CT Scan/US US ABD Other Rad Studies (CT/US): Read By Radiologist, Radiology Report Reviewed CT/US Interpretation: Date of service: 12/28/2018. HISTORY: Abdominal pain. COMPARISON: CT abdomen and pelvis from 12/28/2018. TECHNIQUE: Grayscale im aging was performed. FINDINGS: LIVER: Measures 13.0 cm in length. There is diffuse increased echogenicity of the liver parenchyma. There is a 4.9 x 4.3 x 4.9 cm septated cyst in the right hepatic lobe and 1.0 x 0.7 x 0.7 cm simple cyst in the right hepatic lobe. No intrahepatic bile duct dilatation. GALLBLADDER: There are no gallstones, wall thickening or pericholecystic fluid. The sonographic Piedra's sign is negative. COMMON BILE DUCT: Measures 3.9 mm. No stones. No dilatation. PANCREAS: Unremarkable as visualized. No mass. No ductal dilatation. RIGHT KIDNEY: Measures 10.6 cm in length. Normal echogenicity. No calculus, mass, or hydronephrosis. There is a 6.8 x 5.8 x 5.8 cm exophytic simple cyst in the interpolar region and 1.2 x 1.2 x 1.2 cm simple cyst in the upper pole. AORTA: No aneurysmal dilatation. IVC: Unremarkable. OTHER FINDINGS: None . IMPRESSION: 1. Fatty liver. 2 simple cyst in the right hepatic lobe, the larger in the right hepatic lobe measures 4.9 cm. 2. No cholelithiasis or biliary dilatation. 3. Simple cysts in the right kidney, the largest exophytic cyst in the right interpolar region measures 6.[address] Abdomen and Pelvis Other Rad Studies (CT/US): Read By Radiologist, Radiology Report Reviewed CT/US Interpretation: PROCEDURE: CT Abdomen and Pelvis with contrast. HISTORY: abd pain. COMPARISON: CT abdomen and pelvis without IV contrast performed 08/15/18. TECHNIQUE: Contrast dose: 100 mL Visipaque 320. Radiation dose: Total exam DLP = 540.67 mGy-cm. This CT exam was performed using one or more of the following dose reduction techniques: Automated exposure control, adjustment of the mA and/or kV according to patient size, and/or use of iterative reconstruction technique. FINDINGS: LOWER THORAX: No visible consolidation, pleural effusion, or pneumothorax. Partially imaged small to moderate pericardial effusion. LIVER: Hypoattenuation of the liver compatible with hepatic steatosis. Heterogeneous hepatic parenchyma. Geographic wedge-shaped region of enhancement in the right hepatic lobe. 3.8 x 4.4 cm inferior right hepatic lobe hypodense mass measures approximately 5 Hounsfield units consistent with a cyst. Additional smaller hypodensities which are too small to characterize; statistically likely cysts or hemangiomas. Punctate hepatic calc ification in the right lobe, likely granuloma. GALLBLADDER AND BILE DUCTS: Unremarkable. PANCREAS: Unremarkable. SPLEEN: Unremarkable. ADRENALS: Unremarkable. KIDNEYS AND URETERS: The kidneys enhance symmetrically. No hydronephrosis or obstructing calculus identified. Numerous bilateral renal cysts. VASCULATURE: No aortic aneurysm. Atherosclerotic calcifications/mural plaque present. BOWEL: Stomach is nondistended. Lack of oral contrast limits evaluation for bowel pathology. Bowel loops appear within normal limits of caliber without evidence of obstruction. APPENDIX: The appendix appears within normal limits of caliber. No secondary signs of acute appendicitis. PERITONEUM: No significant free fluid. No definite free air. LYMPH NODES: No bulky adenopathy identified. BLADDER: Mildly thick-walled urinary bladder. REPRODUCTIVE: Enlarged heterogeneous prostate gland measures approximately 4.3 x 5.6 cm. BONES: Osseous demineralization. Degenerative changes. OTHER FINDINGS: Bilateral fat containing inguinal hernias. IMPRESSION: Heterogeneous hepatic parenchyma and hepatic steatosis. Geographic wedge-shaped region of enhancement in the right hepatic lobe; possibly due to transient hepatic perfusion. 3.8 x 4.4 cm inferior right hepatic lobe cyst. Additional smaller hypodensities which are too small to characterize; statistically likely cysts or hemangiomas. Punctate hepatic calcification in the right lobe, likely granuloma. Bilateral renal cysts. Mildly thick-walled urinary bladder. Correlate with urinalysis. Enlarged heterogeneous prostate gland. Recommend correlation with PSA. Additional findings as above. Progress - Re-Evaluation Re-evaluation Note: 12/28/18 12:52 FEELS BETTER. ABD NEG VSS - Data Reviewed Data Reviewed: Lab, Diagnostic imaging, EKG Medical Decision Making Medical Decision Making: Plan - CT ABD/PEL - EKG - Bloodwork - Pepcid 20mg IVP - Morphine 2mg IVP - Zofran 4mg IVP - Protonix INJ 40mg IVP - UA - UA ABD Disposition Counseled Patient/Family Regarding: Studies Performed, Diagnosis, Need For Followup, Rx Given - Disposition Referrals: YOUR,PMD [Other] Disposition: HOME/ ROUTINE Disposition Time: 12:52 Condition: IMPROVED Prescriptions: Sucralfate [Carafate] 1 gm PO QID #20 tablet Instructions: Acute Abdomen (Belly Pain), Adult (DC) Forms: [employer] ([place]an) Print Language: KYRGYZ - Clinical Impression Clinical Impression: Abdominal pain - Scribe Statement The provider has reviewed the documentation as recorded by the Scribdon Voss All medical record entries made by the Jhonibdon were at my direction and p ersonally dictated by me. I have reviewed the chart and agree that the record accurately reflects my personal performance of the history, physical exam, medical decision making, and the department course for this patient. I have also personally directed, reviewed, and agree with the discharge instructions and disposition.
[2018-12-28 09:37] LABS: BASO % 0.6 % (0.0-2.0); EOS # 0.1 K/uL (0.0-0.7); EOS % 2.1 % (0.0-4.0); LYMPH # 2.1 K/uL (1.0-4.3); LYMPH % 31.8 % (20.0-40.0); MEAN CORPUSCULAR HEMOGLOBIN 32.3 pg (27.0-31.0); MEAN CORPUSCULAR HGB CONC 33.8 g/dL (33.0-37.0); MEAN PLATELET VOLUME 10.2 fL (7.2-11.7); MONO # 0.5 K/uL (0.0-0.8); MONO % 8.3 % (0.0-10.0); NEUT # 3.7 K/uL (1.8-7.0); NEUT % 57.2 % (50.0-75.0); RBC 4.89 Mil/uL (4.40-5.90); RED CELL DISTRIBUTION WIDTH 14.1 % (11.5-14.5); WHITE BLOOD COUNT 6.5 K/uL (4.8-10.8)
[2018-12-28 09:39] LABS: HEMOGLOBIN 15.8 g/dL (12.0-18.0); MEAN CELL VOLUME 95.3 fL (80.0-94.0)
[2018-12-28 09:45] LABS: SQUAMOUS EPITHIAL < 1 /hpf (0-5); URINE BILIRUBIN NEGATIVE (NEGATIVE); URINE BLOOD NEGATIVE (NEGATIVE); URINE CLARITY Clear (Clear); URINE COLOR Yellow (YELLOW); URINE GLUCOSE (UA) NORMAL (Normal); URINE LEUKOCYTE ESTERASE NEG Leu/uL (Negative); URINE PROTEIN NEGATIVE (NEGATIVE); URINE UROBILINOGEN NORMAL mg/dL (0.2-1.0)
[2018-12-28 09:52] LABS: ALB/GLOB RATIO 1.3 (1.0-2.1); ALT/SGPT 22 U/L (21-72); AST/SGOT 32 U/L (17-59); BLOOD UREA NITROGEN 13 mg/dL (9-20); CALCIUM 9.2 mg/dl (8.6-10.4); GFR NON-AFRICAN AMERICAN > 60; LIPASE 28 U/L (23-300)
[2018-12-28] MEDS ORDERED: Iodixanol 320 MG/ML 100 ML BOTTLE IV ONE (10:44)
--- NOTE | 2018-12-28 11:43 | US ---
Date of service: 12/28/2018 HISTORY: Abdominal pain COMPARISON: CT abdomen and pelvis from 12/28/2018. TECHNIQUE: Grayscale imaging was performed. FINDINGS: LIVER: Measures 13.0 cm in length. There is diffuse increased echogenicity of the liver parenchyma. There is a 4.9 x 4.3 x 4.9 cm septated cyst in the right hepatic lobe and 1.0 x 0.7 x 0.7 cm simple cyst in the right hepatic lobe. No intrahepatic bile duct dilatation. GALLBLADDER: There are no gallstones, wall thickening or pericholecystic fluid. The sonographic Piedra's sign is negative. COMMON BILE DUCT: Measures 3.9 mm. No stones. No dilatation. PANCREAS: Unremarkable as visualized. No mass. No ductal dilatation. RIGHT KIDNEY: Measures 10.6 cm in length. Normal echogenicity. No calculus, mass, or hydronephrosis. There is a 6.8 x 5.8 x 5.8 cm exophytic simple cyst in the interpolar region and 1.2 x 1.2 x 1.2 cm simple cyst in the upper pole. AORTA: No aneurysmal dilatation. IVC: Unremarkable. OTHER FINDINGS: None . IMPRESSION: 1. Fatty liver. 2 simple cyst in the right hepatic lobe, the larger in the right hepatic lobe measures 4.9 cm. 2. No cholelithiasis or biliary dilatation. 3. Simple cysts in the right kidney, the largest exophytic cyst in the right interpolar region measures 6.8 cm
--- NOTE | 2018-12-28 12:33 | CT ---
Date of service: 12/28/2018 PROCEDURE: CT Abdomen and Pelvis with contrast HISTORY: abd pain COMPARISON: CT abdomen and pelvis without IV contrast performed 08/15/18 TECHNIQUE: Contrast dose: 100 mL Visipaque 320 Radiation dose: Total exam DLP = 540.67 mGy-cm. This CT exam was performed using one or more of the following dose reduction techniques: Automated exposure control, adjustment of the mA and/or kV according to patient size, and/or use of iterative reconstruction technique. FINDINGS: LOWER THORAX: No visible consolidation, pleural effusion, or pneumothorax. Partially imaged small to moderate pericardial effusion. LIVER: Hypoattenuation of the liver compatible with hepatic steatosis. Heterogeneous hepatic parenchyma. Geographic wedge-shaped region of enhancement in the right hepatic lobe. 3.8 x 4.4 cm inferior right hepatic lobe hypodense mass measures approximately 5 Hounsfield units consistent with a cyst. Additional smaller hypodensities which are too small to characterize; statistically likely cysts or hemangiomas. Punctate hepatic calcification in the right lobe, likely granuloma. GALLBLADDER AND BILE DUCTS: Unremarkable. PANCREAS: Unremarkable. SPLEEN: Unremarkable. ADRENALS: Unremarkable. KIDNEYS AND URETERS: The kidneys enhance symmetrically. No hydronephrosis or obstructing calculus identified. Numerous bilateral renal cysts. VASCULATURE: No aortic aneurysm. Atherosclerotic calcifications/mural plaque present. BOWEL: Stomach is nondistended. Lack of oral contrast limits evaluation for bowel pathology. Bowel loops appear within normal limits of caliber without evidence of obstruction. APPENDIX: The appendix appears within normal limits of caliber. No secondary signs of acute appendicitis. PERITONEUM: No significant free fluid. No definite free air. LYMPH NODES: No bulky adenopathy identified. BLADDER: Mildly thick-walled urinary bladder. REPRODUCTIVE: Enlarged heterogeneous prostate gland measures approximately 4.3 x 5.6 cm. BONES: Osseous demineralization. Degenerative changes. OTHER FINDINGS: Bilateral fat containing inguinal hernias. IMPRESSION: Heterogeneous hepatic parenchyma and hepatic steatosis. Geographic wedge-shaped region of enhancement in the right hepatic lobe; possibly due to transient hepatic perfusion. 3.8 x 4.4 cm inferior right hepatic lobe cyst. Additional smaller hypodensities which are too small to characterize; statistically likely cysts or hemangiomas. Punctate hepatic calcification in the right lobe, likely granuloma. Bilateral renal cysts. Mildly thick-walled urinary bladder. Correlate with urinalysis. Enlarged heterogeneous prostate gland. Recommend correlation with PSA. Additional findings as above.
[2018-12-28 12:50] VITALS: BP 118/69; PULSE 47; TEMP 97.6
[2018-12-28 12:54] VITALS: O2SAT 97
--- NOTE | 2018-12-29 14:18 | CARD ---
APPROVED REPORT Date of service: 12/28/2018 EKG Measurement Heart [id number] ID [id number] <Conclusion> Sinus bradycardia Possible Inferior infarct, age undetermined Abnormal ECG
== END 2018-12-28 13:17 | disposition home or self-care (01) ==
LOC: C.ER 08:47
DX: R10.12 Left upper quadrant pain (principal)
CPT/HCPCS: 74177; 76705; 80053; 81001; 83690; 85025; 93005; 96374; 96375; 99285; C9113; J2405; Q9967